=== PATIENT | male | born 1960 | race Caucasian/White ===

== ENCOUNTER 2018-08-04 08:44 | Observation (INO) | payer BC ==
[2018-08-04 09:49] LABS: Absolute Lymphocytes (CBC) 0.9 K/uL (0.7-4.9); Absolute Monocytes 0.4 K/uL (0.1-1.3); Absolute Neutrophil 7.8 K/uL (1.8-8.0); Basophils % 0.5 % (0-1.3); Eosinophils % 0.3 % (0-4.4); Hematocrit 48.1 % (39.6-49.0); Lymphocytes % 9.5 % (15.3-44.8); MPV 7.9 fL (7.6-11.3); Monocytes % 4.7 % (3.3-12.3); RBC Red Blood Cell Count 5.44 M/uL (4.33-5.43)
[2018-08-04 10:11] LABS: Protime INR 0.98
--- NOTE | 2018-08-04 10:25 | RAD REPORT ---
EXAM DESCRIPTION: CT - Head Brain Wo Cont - 08/04/2018 9:57 am CLINICAL HISTORY: DIZZINESS Fall, trauma, head injury COMPARISON: No comparisons TECHNIQUE: All CT scans are performed using dose optimization technique as appropriate and may inclu de automated exposure control or mA/KV adjustment according to patient size. FINDINGS: No intracranial hemorrhage, hydrocephalus or extra-axial fluid collection.No areas of brai n edema or evidence of midline shift. Evidence of corpus callosum dysgenesis. The paranasal sinuses and mastoids are clear. The calvarium is intact. IMPRESSION: No acute intracranial abnormality.
[2018-08-04 10:36] LABS: BUN Blood Urea Nitrogen 17 mg/dL (7-18); Bicarbonate 26 mmol/L (21-32); Folic Acid, (Folate) > 20.0 ng/mL (3.1-17.5); Glucose Level 157 mg/dL (74-106); Potassium 3.6 mmol/L (3.5-5.1); Sodium Level 142 mmol/L (136-145); Troponin (Emerg Dept Use Only) 0.03 ng/mL (0.0-0.045)
--- NOTE | 2018-08-04 11:04 | ER ---
Nurse's Notes [facility] Name: Ernesto Roche Age: 57 yrs Sex: Male : 1960 Arrival Date: 08/04/2018 Time: 08:45 Bed 14 [facility] MD: Favio Beaver T Diagnosis: Ataxia, unspecified;Multiple sclerosis Presentation: 08/04 08:54 Presenting complaint: Patient states: Went to bed at 2000 last night, woke up at 0330 ss this morning, fell out of bed because of feeling off balance. Denies pain. Transition of care: patient was not received from another setting of care. No acute neurological deficit is noted. Pre-hospital glucose is not applicable to this patient. Onset of symptoms is unknown. Risk Assessment: Do you want to hurt yourself or someone else? Patient reports no desire to harm self or others. Initial Sepsis Screen: Does the patient meet any 2 criteria? No. Patient's initial sepsis screen is negative. Does the patient have a suspected source of infection? No. Patient's initial sepsis screen is negative. Care prior to arrival: None. 08:54 Method Of Arrival: Wheelchair ss 08:54 Acuity: LEIGH ANN 3 ss Stroke Activation: Symptom onset > 6 hours Physician: Stroke Attending; Name: ; Notified At: ; Arrived At: Physician: Chief Stroke Resident; Name: ; Notified At: ; Arrived At: Physician: Stroke Resident; Name: ; Notified At: ; Arrived At: Physician: ED Attending; Name: ; Notified At: ; Arrived At: Physician: ED Resident; Name: ; Notified At: ; Arrived At: Historical: - Allergies: 08:57 No Known Allergies; ss - PMHx: 08:57 Multiple Sclerosis; Hypertension; ss - PSHx: 08:57 penile implant; ss - Immunization history:: Adult Immunizations up to date. - Social history:: Smoking status: Patient/guardian denies using tobacco. - Ebola Screening: : Patient denies exposure to infectious person Patient denies travel to an Ebola-affected area in the 21 days before illness onset. - Family history:: not pertinent. - Hospitalizations: : No recent hospitalization is reported. Screenin:30 Abuse screen: Denies threats or abuse. Denies injuries from another. Nutritional ph screening: No deficits noted. Tuberculosis screening: No symptoms or risk factors identified. Fall Risk Fall in past 12 months (25 points). Secondary diagnosis (15 points) MS. IV access (20 points). Ambulatory Aid- None/Bed Rest/Nurse Assist (0 pts). Gait- Impaired (20 pts.). Mental Status- Oriented to own ability (0 pts). Total Jaffe Fall Scale indicates High Risk Score (45 or more points). Fall prevention measures have been instituted. Side Rails Up X 2 Placed Close to Nursing Station Frequent Obs/Assessments Occuring Family Present and informed to notify staff if the need to leave the bedside As available patient and family educated on Fall Prevention Program and Strategies. Assessment: 09:15 VAN Scoring: Arm Drift: Patients demonstrates NO arm weakness. Patient is VAN Negative. ph 09:56 Reassessment: Patient appears in no apparent distress at this time. Patient is alert, ph oriented x 3, equal unlabored respirations, skin warm/dry/pink. Pt taken to CT via wheelcahir. 10:30 Patient has been NPO before screening. The patient is alert, and able to follow ph commands. The patient does not exhibit slurred or garbled speech. The patient is not exhibiting difficulty speaking. The patient does not exhibit difficulty understanding words. The patient is able to swallow own secretions with no drooling or need for suction. Patient tolerated one teaspoon of water. No drooling, immediate coughing, gurgling, or clearing of the throat was noted. The patient tolerated 90mL of water. No drooling, immediate coughing, gurgling, or clearing of the throat was noted. The patient passed the bedside swallow screening. Oral medications may be given as ordered. Contact Physician for further diet orders. Provider notified of bedside swallow screening results: Beck Santa MD. T-PA (Activase) Screening: Contraindications: Patient reports onset of signs and symptoms of stroke greater than 6 hours ago: Yes. General: Appears in no apparent distress. comfortable, well groomed, well nourished, Behavior is calm, cooperative, appropriate for age, Denies fever, chills. Pain: Denies pain. Neuro: Level of Consciousness is awake, alert, obeys commands, Oriented to person, place, time, situation, Pattern Duplicator are equal bilaterally Moves all extremities. Gait is ataxic, Speech is normal, Facial symmetry appears normal, Facial symmetry: tongue is midline, Pupils are PERRLA, Reports dizziness, trouble walking, "feels unsteady". Denies paresthesias numbness headache. Cardiovascular: Denies chest pain, lightheadedness, shortness of breath, Capillary refill < 3 seconds in bilateral fingers Patient's skin is warm and dry. Respiratory: Airway is patent Respiratory effort is even, unlabored, Respiratory pattern is regular, symmetrical. GI: No signs and/or symptoms were reported involving the gastrointestinal system. Derm: Skin is intact, is healthy with good turgor, Skin is pink, warm \\T\\ dry. Musculoskeletal: Circulation, motion, and sensation intact. Range of motion: intact in all extremities, Swelling absent. 10:50 Reassessment: Patient appears in no apparent distress at this time. Patient is alert, ph oriented x 3, equal unlabored respirations, skin warm/dry/pink. Dr Reis at bedside to speak w/ pt. 11:20 Reassessment: Patient appears in no apparent distress at this time. Patient and/or ph family updated on plan of care and expected duration. Pain level reassessed. Patient is alert, oriented x 3, equal unlabored respirations, skin warm/dry/pink. Pt taken to MRI via wheelchair Patient denies pain at this time. 13:30 Reassessment: Patient appears in no apparent distress at this time. Patient and/or ph family updated on plan of care and expected duration. Pain level reassessed. Patient is alert, oriented x 3, equal unlabored respirations, skin warm/dry/pink. Patient denies pain at this time. 14:10 Reassessment: Patient appears in no apparent distress at this time. Patient and/or ph family updated on plan of care and expected duration. Pain level reassessed. Patient is alert, oriented x 3, equal unlabored respirations, skin warm/dry/pink. Report called to SHIRIN Lopez, pt taken to second floor via wheelchair. Vital Signs: 08:57 BP 186 / 111; Pulse 79; Resp 19; Temp 97.4(TE); Pulse Ox 98% on R/A; Weight 90.72 kg; ss Height 6 ft. 1 in. (185.42 cm); Pain 0/10; 11:15 BP 182 / 110 Supine; Pulse 75; em1 11:15 BP 172 / 116 Sitting; Pulse 81; em1 11:17 BP 170 / 109 Standing; Pulse 81; em1 12:48 BP 172 / 98; Pulse 80; Resp 18; Temp 97.2; Pulse Ox 99% on R/A; ph 14:00 BP 176 / 101; Pulse 82; Resp 18; Temp 97.6; Pulse Ox 98% on R/A; ph 08:57 Body Mass Index 26.39 (90.72 kg, 185.42 cm) ss NIH Stroke Scale Scores: 09:15 NIHSS Score: 2 ph ED Course: 08:45 Patient arrived in ED. as 08:45 Favio Beaver MD is Private Physician. as 08:56 Triage completed. ss 08:57 Arm band placed on right wrist. ss 09:08 Monica Jimenez RN is Primary Nurse. ph 09:14 Beck Santa MD is Attending Physician. rn 09:30 Patient has correct armband on for positive identification. Placed in gown. Bed in low ph position. Call light in reach. Side rails up X2. manager basketball on. Pulse ox on. NIBP on. Warm blanket given. 09:36 EKG done, by radiologic technologist mammogram. reviewed by Beck Santa MD. dt2 09:40 Radiology exam delayed due to IV insertion attempt and/or patient not having sj appropriate IV at this time. 09:43 Initial lab(s) drawn, by la, sent to lab. Inserted saline lock: 20 gauge in right em1 forearm, using aseptic technique. Blood collected. 09:55 CT completed. Patient tolerated procedure well. Patient moved to CT via wheelchair. Patient moved back from CT. 09:57 CT Head Brain wo Cont In Process Unspecified. EDMS 11:03 Denys Reis DO is Hospitalizing Provider. rn 14:20 No provider procedures requiring assistance completed. Patient admitted, IV remains in ph place. Administered Medications: 11:20 Drug: SOLU-Medrol 125 mg Route: IVP; Site: right forearm; ph 12:00 Follow up: Response: No adverse reaction ph Outcome: 11:03 Decision to Hospitalize by Provider. rn 14:20 Admitted to Tele accompanied by tech, family with patient, via wheelchair, with chart, ph Report called to Jessica CARPIO 14:20 Condition: stable 14:20 Instructed on the need for admit. 14:21 Patient left the ED. ph NIH Stroke Scale - NIH Stroke Score Date: 08/04/2018 Time: 09:15 Total Score = 2 1a. Level of Consciousness (LOC) - 0(Alert) 1b. Level of Consciousness (LOC) (Year \\T\\ Age) - 0(Both) 1c. LOC Commands (Open \\T\\ Closes Eyes/[place] Inspector) - 0(Both) 2. Best Gaze (Lateral Gaze Paresis) - 0(Normal) 3. Visual Field Loss - 0(No visual loss) 4. Facial Palsy - 0(Normal) 5a. Left Arm: Motor (10-second hold) - 0(No drift) 5b. Right Arm: Motor (10-second hold) - 0(No drift) 6a. Left Leg: Motor (5-second hold - always test supine) - 0(No drift) 6b. Right Leg: Motor (5-second hold - always test supine) - 0(No drift) 7. Limb Ataxia (finger/nose \\T\\ heel/ohara - test with eyes open) - 2(Present in two limbs) 8. Sensory Loss (pinprick arms/legs/face) - 0(Normal) 9. Best Language: Aphasia (description/naming/reading) - 0(No aphasia) 10. Dysarthria (speech clarity - read or repeat words) - 0(Normal) 11. Extinction and Inattention (visual/tactile/auditory/spatial/personal) - 0(No abnormality) Initials: Signatures: Dispatcher [employer] Shae Carmona, Beck Newby MD MD rn Martinez, Eric em1 Sydney Reynolds RN RN Monica Jimenez RN RN Mikayla Vazquez dt2 Corrections: (The following items were deleted from the chart) 18:21 11:30 Reassessment: Patient appears in no apparent distress at this time. Patient and/or family updated on plan of care and expected duration. Pain level reassessed. Patient is alert, oriented x 3, equal unlabored respirations, skin warm/dry/pink. Patient denies pain at this time. ph
--- NOTE | 2018-08-04 11:04 | EDPHYS ---
Physician Documentation [facility] Name: Ernesto Roche Age: 57 yrs Sex: Male : 1960 Arrival Date: 08/04/2018 Time: 08:45 Bed 14 [facility] MD: Favio Beaver T ED Physician Beck Santa HPI: 08/04 10:56 This 57 yrs old Male presents to ER via Wheelchair with complaints of rn Dizziness, Trouble Walking. 10:56 The patient presents with feeling off balance. Onset: The symptoms/episode rn began/occurred this morning, at 03:30. Modifying factors: The symptoms are alleviated by nothing, the symptoms are aggravated by walking. Severity of symptoms: At their worst the symptoms were moderate in the emergency department the symptoms are unchanged. The patient has not experienced similar symptoms in the past. Reports woke up at 0330, tried to get out of bed and fell, has felt unsteady since then, no weakness or numbness, but cannot walk without assistance. Has MS, but last flare 20 years ago.. Historical: - Allergies: 08:57 No Known Allergies; ss - PMHx: 08:57 Multiple Sclerosis; Hypertension; ss - PSHx: 08:57 penile implant; ss - Immunization history:: Adult Immunizations up to date. - Social history:: Smoking status: Patient/guardian denies using tobacco. - Ebola Screening: : Patient denies exposure to infectious person Patient denies travel to an Ebola-affected area in the 21 days before illness onset. - Family history:: not pertinent. - Hospitalizations: : No recent hospitalization is reported. ROS: 10:56 Constitutional: Negative for fever, chills, and weight loss, Eyes: Negative for injury, rn pain, redness, and discharge, Neck: Negative for injury, pain, and swelling, Cardiovascular: Negative for chest pain, palpitations, and edema, Respiratory: Negative for shortness of breath, cough, wheezing, and pleuritic chest pain, Abdomen/GI: Negative for abdominal pain, nausea, vomiting, diarrhea, and constipation, MS/Extremity: Negative for injury and deformity, Skin: Negative for injury, rash, and discoloration, Neuro: Negative for headache, weakness, numbness, tingling, and seizure, + off balance and trouble walking Exam: 09:34 ECG was reviewed by the Attending Physician. rn 10:56 Constitutional: This is a well developed, well nourished patient who is awake, alert, rn and in no acute distress. Head/Face: Normocephalic, atraumatic. Eyes: Pupils equal round and reactive to light, extra-ocular motions intact. Lids and lashes normal. Conjunctiva and sclera are non-icteric and not injected. Cornea within normal limits. Periorbital areas with no swelling, redness, or edema. + right lateral gaze nystagmus. Cardiovascular: Regular rate and rhythm . No pulse deficits. Respiratory: Lungs have equal breath sounds bilaterally, clear to auscultation. No increased work of breathing, no retractions or nasal flaring. Abdomen/GI: soft, non-tender MS/ Extremity: Pulses equal, no cyanosis. Neurovascular intact. Full, normal range of motion. Equal circumference. Neuro: Awake and alert, GCS 15, oriented to person, place, time, and situation. Cranial nerves II-XII grossly intact. Motor strength 5/5 in all extremities. Sensory grossly intact. Normal Finger to nose, trouble with left heel to ohara, + ataxic gait and cannot walk without support, falls to either side. Vital Signs: 08:57 BP 186 / 111; Pulse 79; Resp 19; Temp 97.4(TE); Pulse Ox 98% on R/A; Weight 90.72 kg; ss Height 6 ft. 1 in. (185.42 cm); Pain 0/10; 11:15 BP 182 / 110 Supine; Pulse 75; em1 11:15 BP 172 / 116 Sitting; Pulse 81; em1 11:17 BP 170 / 109 Standing; Pulse 81; em1 12:48 BP 172 / 98; Pulse 80; Resp 18; Temp 97.2; Pulse Ox 99% on R/A; ph 14:00 BP 176 / 101; Pulse 82; Resp 18; Temp 97.6; Pulse Ox 98% on R/A; ph 08:57 Body Mass Index 26.39 (90.72 kg, 185.42 cm) NIH Stroke Scale Scores: 09:15 NIHSS Score: 2 ph MDM: 09:14 Patient medically screened. rn 10:56 Differential diagnosis: cardiac arrhythmia, generalized weakness, hypovolemia, rn idiopathic dizziness, TIA, vertigo, MS flare. Data reviewed: vital signs, nurses notes, lab test result(s), EKG, radiologic studies, CT scan, and as a result, I will admit patient. Counseling: I had a detailed discussion with the patient and/or guardian regarding: the historical points, exam findings, and any diagnostic results supporting the discharge/admit diagnosis, lab results, radiology results, the need for further work-up and treatment in the hospital. Admission orders: after a detailed discussion of the patient's condition and case, the admit orders are written by me. Special discussion:. ED course: Pt with normal ct head and labs, consulted with Dr. Delvalle, requests MRI brain with and without, and will consult, admitted to Dr. Reis who has evaluated patient in ER. . 08/04 09:30 Order name: Protime (+inr); Complete Time: 10:15 rn 08/04 09:30 Order name: Basic Metabolic Panel; Complete Time: 10:38 08/04 09:30 Order name: CBC with Diff; Complete Time: 10:15 08/04 09:30 Order name: Ptt, Activated; Complete Time: 10:15 08/04 09:30 Order name: Troponin (emerg Dept Use Only); Complete Time: 10:38 08/04 09:30 Order name: B12; Complete Time: 10:38 08/04 09:00 Order name: EKG; Complete Time: 09:00 08/04 09:30 Order name: CT Head Brain wo Cont; Complete Time: 10:38 rn 08/04 09:30 Order name: Folic Acid,Serum (folate); Complete Time: 10:38 08/04 10:43 Order name: Brain W/Wo Cont MRI rn 08/04 12:03 Order name: Urine Dipstick--Ancillary (enter results) 08/04 12:40 Order name: MRI EDIA 08/04 12:52 Order name: Urine Dipstick-Ancillary EDIA 08/04 09:00 Order name: EKG - Nurse/Tech; Complete Time: 10:29 08/04 09:30 Order name: Cardiac monitoring; Complete Time: 09:57 rn 08/04 09:30 Order name: IV Saline Lock; Complete Time: 09:44 08/04 09:30 Order name: Labs collected and sent; Complete Time: 09:44 rn 08/04 09:30 Order name: NPO; Complete Time: 09:57 rn 08/04 09:30 Order name: O2 Per Protocol; Complete Time: 09:57 rn 08/04 09:30 Order name: O2 Sat Monitoring; Complete Time: 09:57 rn 08/04 09:30 Order name: Urine Dipstick-Ancillary (obtain specimen); Complete Time: 12:02 rn 08/04 11:03 Order name: Orthostatics; Complete Time: 11:21 rn EC:34 Rate is 73 beats/min. Rhythm is regular. QRS interval is normal. QT interval is normal. rn No Q waves. T waves are Inverted in leads I, aVL, V4, V5, V6. Clinical impression: NSR w/ Non-specific ST/T Changes. Interpreted by me. Reviewed by me. Administered Medications: 11:20 Drug: SOLU-Medrol 125 mg Route: IVP; Site: right forearm; ph 12:00 Follow up: Response: No adverse reaction ph Disposition: 08/04/18 11:03 Hospitalization ordered by Denys Reis for Inpatient Admission. Preliminary diagnosis are Ataxia, unspecified, Multiple sclerosis. - Bed requested for Telemetry/MedSurg (Inpatient). - Status is Inpatient Admission. ph - Condition is Stable. - Problem is new. - Symptoms are unchanged. UTI on Admission? No NIH Stroke Scale - NIH Stroke Score Date: 08/04/2018 Time: 09:15 Total Score = 2 1a. Level of Consciousness (LOC) - 0(Alert) 1b. Level of Consciousness (LOC) (Year \T\ Age) - 0(Both) 1c. LOC Commands (Open \T\ Closes Eyes/Return To Service Inspector) - 0(Both) 2. Best Gaze (Lateral Gaze Paresis) - 0(Normal) 3. Visual Field Loss - 0(No visual loss) 4. Facial Palsy - 0(Normal) 5a. Left Arm: Motor (10-second hold) - 0(No drift) 5b. Right Arm: Motor (10-second hold) - 0(No drift) 6a. Left Leg: Motor (5-second hold - always test supine) - 0(No drift) 6b. Right Leg: Motor (5-second hold - always test supine) - 0(No drift) 7. Limb Ataxia (finger/nose \T\ heel/ohara - test with eyes open) - 2(Present in two limbs) 8. Sensory Loss (pinprick arms/legs/face) - 0(Normal) 9. Best Language: Aphasia (description/naming/reading) - 0(No aphasia) 10. Dysarthria (speech clarity - read or repeat words) - 0(Normal) 11. Extinction and Inattention (visual/tactile/auditory/spatial/personal) - 0(No abnormality) Initials: Signatures: Dispatcher [employer] Anna Jarrell RN RN dw Nieto, Roman, MD MD rn Smirch, Shelby, RN RN ss Hall, Patricia, RN RN ph Corrections: (The following items were deleted from the chart) 11:01 10:56 Constitutional: This is a well developed, well nourished patient who is rn awake, alert, and in no acute distress. Head/Face: Normocephalic, atraumatic. Eyes: Pupils equal round and reactive to light, extra-ocular motions intact. Lids and lashes normal. Conjunctiva and sclera are non-icteric and not injected. Cornea within normal limits. Periorbital areas with no swelling, redness, or edema. Cardiovascular: Regular rate and rhythm . No pulse deficits. Respiratory: Lungs have equal breath sounds bilaterally, clear to auscultation. No increased work of breathing, no retractions or nasal flaring. Abdomen/GI: soft, non-tender MS/ Extremity: Pulses equal, no cyanosis. Neurovascular intact. Full, normal range of motion. Equal circumference. Neuro: Awake and alert, GCS 15, oriented to person, place, time, and situation. Cranial nerves II-XII grossly intact. Motor strength 5/5 in all extremities. Sensory grossly intact. Normal Finger to nose, trouble with left heel to ohara, + ataxic gait and cannot walk without support, falls to either side. bertha 12:09 11:03 Hospitalization Ordered by Denys Reis DO for Inpatient Admission. gregg Preliminary diagnosis is Ataxia, unspecified; Multiple sclerosis. Bed requested for Telemetry/MedSurg (Inpatient). Status is Inpatient Admission. Condition is Stable. Problem is new. Symptoms are unchanged. UTI on Admission? No. rn 14:21 12:09 08/04/2018 11:03 Hospitalization Ordered by Denys Reis DO for ph Inpatient Admission. Preliminary diagnosis is Ataxia, unspecified; Multiple sclerosis. Bed requested for Telemetry/MedSurg (Inpatient). Status is Inpatient Admission. Condition is Stable. Problem is new. Symptoms are unchanged. UTI on Admission? No. dw
[2018-08-04] MEDS ORDERED: METHYLPREDNISOLONE 125 MG INJ ONE (11:37)
--- NOTE | 2018-08-04 11:54 | EKG ---
Test Date: 2018-08-04 Test Time: 09:31:35 Gamemaster: CELESTINE MEASUREMENT RESULTS: Intervals: Rate: 73 [place]: 178 QRSD: 90 QT: 398 QTc: 438 Clements: P: 56 KY: 178 QRS: 31 T: 170 INTERPRETIVE STATEMENTS: Normal sinus rhythm Marked ST abnormality, possible inferior subendocardial injury Abnormal ECG No previous ECG available for comparison Electronically Signed On 08-04-18 11:53:25 CDT by Jimi White
--- NOTE | 2018-08-04 12:39 | RAD REPORT ---
EXAM DESCRIPTION: MRI - Brain W/Wo Cont - 08/04/2018 12:24 pm CLINICAL HISTORY: Ataxia, remote history of MS, fall with head injury COMPARISON: CT head same date TECHNIQUE: Sagittal and axial T1-weighted images were obtained. Axial PD/heavily T2-weighted and T2- FLAIR images were obtained along with axial DWI/ADC mapping sequences. Coronal heavily T2 weighted s equence obtained. Axial and coronal post-contrast T1-weighted images were also obtained. A 20 ml Mul tihance contrast following utilized. FINDINGS: No intracranial hemorrhage, mass or acute infarction. There is no edema or shift of midli ne structures. Patient has congenital absence of the corpus callosum. Atria and occipital horns of th e lateral ventricles are prominent. This is a common configuration with the corpus callosum finding. Fourth ventricle is normal. Volume loss changes are present. Extensive cerebral white matter signal a bnormalities are present periventricular in location. A few of the white matter signal abnormalities have an orientation perpendicular to the lateral ventricles. This is a finding that can be associated with MS. The white matter signal abnormality is not specific for MS. no cerebellum or brainstem sign al abnormalities. No thalamus or basal ganglia signal abnormalities. Goldstein-matter/white matter junctio n is preserved. Signal voids are seen as a normal finding in the major intracranial vessels. No globe or orbital content abnormality. No sella or supra sella mass. No tonsillar ectopia. Post-contrast images show normal enhancement. No dural thickening. Mastoid air cells and paranasal sinuses are clear. IMPRESSION: No acute infarction. No hemorrhage, mass or other acute intracranial finding. Extensive periventricular white matter signal abnormality. White matter pattern is not specific for m ultiple sclerosis but can still represent MS signal abnormality. No enhancing focus to indicate active demyelinization. Patient has developmental absence of the corpus callosum. Atria and occipital horns of the lateral ve ntricles are enlarged which can be seen with is underlying developmental abnormality. Obstructive hyd rocephalus is not suspected.
[2018-08-04 12:51] LABS: Urine Blood NEGATIVE (NEG); Urine Glucose NEGATIVE (NEG); Urine Protein 1+ (NEG); Urine Specific Gravity 1.015 (1.005-1.030); Urine pH 7.5 (5.0-7.0)
[2018-08-04 14:13] VITALS: BMI 26.4
[2018-08-04] MEDS ORDERED: HYDRALAZINE HCL 20 MG/ML VIAL IV PRN (14:14)
[2018-08-04] MEDS ORDERED: ACETAMINOPHEN 500 MG TAB PO PRN (14:14)
[2018-08-04] MEDS ORDERED: ONDANSETRON 4 MG/2 ML VIAL IV PRN (14:14)
--- NOTE | 2018-08-04 14:57 | P.HP ---
Certification for Inpatient Patient admitted to: Observation With expected LOS: <2 Midnights Patient will require the following post-hospital care: None Practitioner: I am a practitioner with admitting privileges, knowledge of patient current condition, hospital course, and medical plan of care. Services: Services provided to patient in accordance with Admission requirements found in Title 42 Section 412.3 of the Code of Federal Regulations Patient History Date of Service: 08/04/18 Primary Care Provider: Dr. Beaver; Neurology-Dr. Delvalle Reason for admission: Ataxia History of Present Illness: 57-year-old male presented to the emergency room with ataxia. Patient with history of multiple sclerosis. Patient reported that he woke up this morning with ataxia. He was going up to the bathroom when he fell down. He was having difficulty with ambulation. He denied any chest pain, shortness of breath, syncope, presyncope, or fever. He denies any other major medical issues. Patient reports history of multiple sclerosis. His last flare up was multiple years ago. Patient is seen by neurology in the area. Patient evaluate the emergency room. Blood pressures were elevated. White count 9.1, hemoglobin 15.9. Sodium 142, potassium 3.6. BUN of 12, creatinine 1.1 with a GFR 63. Glucose 157. Troponin unremarkable. CT scan shows no acute changes. Patient was admitted for further evaluation. When I saw the patient in ER, he appeared comfortable. Patient had ataxia upon ER evaluation. Allergies No Known Allergies Allergy (Unverified 08/04/18 14:13) Home medications list reviewed: Yes Home Medications: Amantadine [Symmetrel] 100 mg PO DAILY 08/04/18 Bupropion *Xl* [Wellbutrin XL] 300 mg PO DAILY 08/04/18 Glatiramer Acetate [Glatopa] 20 mg SQ DAILY 08/04/18 Tamsulosin [Flomax] 0.4 mg PO DAILY 08/04/18 - Past Medical/Surgical History Has patient received pneumonia vaccine in the past: No Diabetic: No -: Multiple sclerosis -: Depression with anxiety -: Penile implant Psychosocial/ Personal History: Patient lives by himself. He has no children. 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 He has never been . - Family History Family History: Reviewed- Non-Contributory - Social History Smoking Status: Never smoker Alcohol use: No CD- Drugs: No Caffeine use: No Place of Residence: Home Review of Systems General: As per HPI Eyes: Unremarkable ENT: Unremarkable Respiratory: Unremarkable Cardiovascular: Unremarkable Gastrointestinal: Unremarkable Genitourinary: Unremarkable Musculoskeletal: Unremarkable Integumentary: Unremarkable Neurological: As per HPI Lymphatics: Unremarkable Physical Examination - Vital Signs Temperature: 97.2 F Blood Pressure: 172/98 Pulse: 80 Respirations: 18 - Physical Exam General: Alert, In no apparent distress, Oriented x3, Cooperative HEENT: Atraumatic, Normocephalic, PERRLA, Mucous membr. moist/pink, Other ( Lateral nystagmus) Neck: Supple, No Thyromegaly Respiratory: Clear to auscultation bilaterally, Normal air movement Cardiovascular: Normal pulses, Regular rate/rhythm Gastrointestinal: Normal bowel sounds, Soft and benign, Non-distended, No tenderness, No masses, No rebound, No guarding Musculoskeletal: No erythema, No tenderness, No warmth Integumentary: No tenderness/swelling, No erythema, No warmth, No cyanosis Neurological: Normal speech, Normal strength at 5/5 x4 extr, Normal tone, Normal affect - Studies Laboratory Data (last 24 hrs) 08/04/18 09:40: WBC 9.1, Hgb 15.9, Hct 48.1, Plt Count 217 08/04/18 09:40: Sodium 142, Potassium 3.6, BUN 17, Creatinine 1.18, Glucose 157 H 08/04/18 09:40: PT 11.6, INR 0.98, APTT 31.3 Assessment and Plan - Plan Impression: Ataxia with history of multiple sclerosis Hypertension, uncontrolled Plan: Ataxia with history of multiple sclerosis: Patient will be admitted for further evaluation. MRI shows no acute infarct. Extensive periventricular white matter signal abnormality noted. No enhancing focus to indicate active demyelination. Patient has developmental absence of corpus callosum. Will consult neurology to further evaluate. Will start steroid medication as this may be an exacerbation of an mass. Patient with elevated blood pressure. Patient not previously treated. Will start medication. Will monitor notice appropriately. Will have physical therapy and occupational therapy evaluate. Patient unsteady to be discharged at this time. Will reassess. Await further recommendations from neurology. Will provide DVT prophylaxis-Lovenox. Hypertension, uncontrolled: Will start lisinopril. Will check orthostatics and monitor closely. Will adjust medication. Will continue to reassess. Discharge Plan: Home Plan to discharge in: 24 Hours - Advance Directives Does patient have a Living Will: Yes Does patient have a Durable POA for Healthcare: Yes - Code Status/Comfort Care Code Status Assessed: Yes (Patient full code.) Time Spent Managing Pts Care (In Minutes): 55
[2018-08-04] MEDS: ENOXAPARIN 40 MG/0.4 ML SQ SCH (14:58)
[2018-08-04 15:22] LABS: CKMB Creatine Kinase MB 3.6 ng/mL (0.3-3.6); Creatine Phosphokinase 387 U/L (39-308); Thyroid Stimulating Hormone 0.708 uIU/mL (0.360-3.740); Troponin I < 0.02 ng/mL (0.0-0.045)
[2018-08-04 16:42] LABS: Urine Appearance CLOUDY; Urine Bilirubin NEGATIVE (NEG); Urine Blood NEGATIVE (NEG); Urine Color YELLOW; Urine Glucose 1+ (NEG); Urine Protein TRACE (NEG); Urine Urobilinogen 0.2 mg/dL (0.2-1.0); Urine pH 7.5 (5.0-7.0)
[2018-08-04 16:44] LABS: Urine Microscopic Reflex ORDER UMIC
[2018-08-04 16:52] LABS: Urine Amorphous Sediment 3+ /HPF (NONE SEEN); Urine Bacteria NONE SEEN /HPF (NONE SEEN); Urine Culture Reflex Order NOT NEEDED; Urine RBC <5 /HPF (NONE SEEN)
[2018-08-04] MEDS ORDERED: LISINOPRIL 10 MG TAB PO ONE (16:54)
[2018-08-04] MEDS: METOPROLOL TAR 50 MG TAB PO SCH (18:49)
--- NOTE | 2018-08-04 19:32 | RAD REPORT ---
EXAM DESCRIPTION: - CP - 08/04/2018 7:24 pm CLINICAL HISTORY: Ataxia, possible CVA COMPARISON: None. TECHNIQUE: Real-time sonographic evaluation of both carotid systems was performed. Goldstein scale and Do ppler interrogation were performed with waveform tracing bilaterally. FINDINGS: Normal high resistance waveforms are noted in both external carotid arteries. The common c arotid arteries and internal carotid arteries show normal low resistance waveforms. No significant plaque formation is seen. Mild plaquing changes are present and left carotid bulb with out visual evidence for luminal narrowing. Peak systolic and end diastolic velocity values and the IC A/CCA ratios are in the non-hemodynamically significant range. Antegrade flow seen in both vertebral arteries. Velocity values and ratios were recorded and are retained in the patient's imaging records. IMPRESSION: No significant atherosclerotic changes noted. No evidence of a hemodynamically significant stenosis.
[2018-08-04] MEDS ORDERED: LISINOPRIL 20 MG TAB PO SCH (21:00)
[2018-08-04] MEDS ORDERED: LISINOPRIL 10 MG TAB PO SCH (21:00)
[2018-08-04] MEDS ORDERED: predniSONE 20 MG TAB PO SCH (21:00)
[2018-08-04 22:39] LABS: CKMB Creatine Kinase MB 3.5 ng/mL (0.3-3.6); Troponin I 0.02 ng/mL (0.0-0.045)
[2018-08-05] MEDS ORDERED: MELATONIN 3 MG TABLET PO ONE (00:20)
[2018-08-05 05:51] LABS: Absolute Lymphocytes (CBC) 2.2 K/uL (0.7-4.9); Absolute Monocytes 0.9 K/uL (0.1-1.3); Absolute Neutrophil 11.4 K/uL (1.8-8.0); Basophils % 0.2 % (0-1.3); Eosinophils % 0.3 % (0-4.4); Hematocrit 45.6 % (39.6-49.0); Lymphocytes % 15.3 % (15.3-44.8); MPV 8.1 fL (7.6-11.3); Monocytes % 6.1 % (3.3-12.3); RBC Red Blood Cell Count 5.16 M/uL (4.33-5.43)
[2018-08-05 06:11] LABS: Magnesium 2.7 mg/dL (1.8-2.4); Potassium 3.9 mmol/L (3.5-5.1)
[2018-08-05] MEDS ORDERED: NA CHLORIDE 0.9% 250 ML IV ONE (08:12)
[2018-08-05] MEDS: METOPROLOL TAR 50 MG TAB PO SCH (08:49)
[2018-08-05] MEDS: ENOXAPARIN 40 MG/0.4 ML SQ SCH (08:49)
[2018-08-05] MEDS: THIAMINE HCL 100 MG TABLET PO SCH (08:49)
[2018-08-05] MEDS: BUPROPION HCL XL 150 MG TAB PO SCH (08:49)
[2018-08-05] MEDS: FOLIC ACID 1 MG TABLET PO SCH (08:50)
[2018-08-05] MEDS: TAMSULOSIN 0.4 MG SR CAP PO SCH (08:50)
[2018-08-05] MEDS: GLATIRAMER ACETATE 20 MG SQ SCH (08:51)
[2018-08-05] MEDS: AMANTADINE 100 MG CAP PO SCH (08:51)
--- NOTE | 2018-08-05 11:28 | P.PN ---
Subjective Date of Service: 08/05/18 Primary Care Provider: Dr. Beaver; Neurology-Dr. Delvalle Chief Complaint: Ataxia Subjective: Other (Patient still with ataxia. No headaches, dizziness. Blood pressure better controlled.) Physical Examination - Vital Signs Temperature: 97 F Blood Pressure: 109/72 Pulse: 59 Respirations: 18 Pulse Ox (%): 96 - Physical Exam General: Alert, In no apparent distress, Oriented x3, Cooperative HEENT: Atraumatic Neck: Supple Respiratory: Clear to auscultation bilaterally, Normal air movement Cardiovascular: Normal pulses, Regular rate/rhythm Gastrointestinal: Normal bowel sounds, Soft and benign, Non-distended, No tenderness, No masses, No rebound, No guarding Musculoskeletal: No erythema, No tenderness, No warmth Neurological: Other (Ataxia noted by physical therapy.) - Studies Medications List Reviewed: Yes Assessment & Plan Discharge Plan: Other (Inpatient rehab) Plan to discharge in: 24 Hours Physician Review Additional Text: Impression: Ataxia with history of multiple sclerosis Hypertension, uncontrolled Acute renal insufficiency likely related to medication Hyperlipidemia Agenesis of corpus callusum Plan: Ataxia with history of multiple sclerosis with noted agenesis of corpus callosum MRI of reviewed with Neurology. MRI showed no acute infarct. Extensive periventricular white matter signal abnormality noted. No enhancing focus to indicate active demyelination. Patient has developmental absence of corpus callosum. Patient work with physical therapy today. Patient still with ataxia. Physical therapy recommends inpatient rehab. Patient is agreeable to this, will consult inpatient rehab. Await acceptance. Hypertension, uncontrolled: DC lisinopril. Will decrease Metoprolol. Will continue to monitor closely. Will check orthostatics. Acute renal insufficiency likely from medication: Will discontinue lisinopril. Will provide IV fluids. Recheck and monitor lab closely. Time Spent Managing Pts Care (In Minutes): 55
[2018-08-05] MEDS: NA CHLORIDE 0.9% 1,000 ML IV SCH (12:53)
[2018-08-05] MEDS ORDERED: ATORVASTATIN 40 MG TAB PO SCH (21:00)
[2018-08-05] MEDS: METOPROLOL TAR 25 MG TAB PO SCH (22:11)
--- NOTE | 2018-08-06 02:41 | CON ---
Reason For Consultation: Consultation called because of ataxia and falling. History Of Present Illness: Mr. Roche is a 57-year-old patient, whom I have seen in clinic for the last 6 years and who was diagnosed with multiple sclerosis over a decade ago. He has relapsing remit ting multiple sclerosis and recent brain MRIs indicate significant white matter lesions, but he had n o recent active plaque. The patient reportedly woke up yesterday morning and was very unsteady, unab le to ambulate and fell. He did not have any shortness of breath, chest pain, or seizure-like activi ty. He denies any focal weakness or numbness in the face, the arm, the leg or any focal pain. At [facility], he did receive a head CT scan, brain MRI. 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 The study did not show hy drocephalus. His workup also included a carotid artery ultrasound study, which showed no significant plaque or hemodynamically significant stenosis. Blood work showed initially a white blood cell coun t of 9.1 yesterday and today it did show an elevation of 14.7 with neutrophils of 78.1, hemoglobin an d hematocrit were unremarkable. Chemistries did show some dehydration with creatinine elevated to 1. 59. His magnesium level was elevated at 2.7 and cholesterol elevated at 307, LDL elevated to 221, HD L low at 38. Serum folate was slightly elevated. Urinalysis did show 3+ amorphous sediment, 1+ keto felipe, 1+ glucose. Note that the blood glucose was elevated to 157. He did receive hydration and he i s being ambulated with physical therapy. Past Medical History: As indicated in addition of depression, anxiety, and he does have erectile dys function. Past Surgical History: He has a penile implant. The patient lives alone. 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 He is unmarried. Family History: Noncontributory. Medications: At home, amantadine 100 mg daily, Wellbutrin 300 mg daily, Glatopa 20 mg subcutaneously daily, and Flomax 0.4 mg daily. Family History: Noncontributory. Allergies: NO KNOWN DRUG ALLERGIES. Social History: No alcohol, tobacco, or IV drug use. Review of Systems: He denies any recent fevers or chills, nausea, or vomiting. He does admit to diffuse weakness, diffi culty with his balance, coordination, and gait, and difficulty maintaining bladder control, and he we ars adult diapers. Physical Examination: Vital Signs: Blood pressure 122/75. Initially when he was in the emergency room, he did have elevat ed blood pressures to 186/111. He was off his antihypertensive medications. Otherwise, pulse 76, re spiratory rate 16, temperature 97.2, oxygen saturation 99%. General: Mr. Roche is resting comfortably in bed, has IV for fluid. He is in no acute distress. HEENT: He is normocephalic, atraumatic. Sclerae anicteric. Oropharynx is moist and pink. Neck: Supple. Chest: Clear. Heart: Regular. Extremities: No edema or cyanosis. Neurologic: Alert and oriented to situation, place, and person. Cranial nerve examination showed no obvious deficits on II through XII. Motor examination is diffuse incoordination with good strength in upper and lower extremities at least 4+ proximally and distally. Coordination shows ataxia and dy smetria in the lower and upper extremities. Reflexes are hyperreflexic in the upper and lower extrem ities. Gait, he is to ambulate with a walker with moderate assistance due to tendency to fall and lo ss of balance. Assessment: Mr. Roche is a 57-year-old patient with an advanced relapsing remitting multiple sclero sis. He has no active plaque as seen by a brain MRI with contrast showing no enhancement of any of t he lesions present. He has however progressive disease, which is likely a contributing factor to his gait ataxia. He does have dehydration, which is also a likely contributing factor. He did show a s light elevation in his white blood cell count and an infection such as pneumonia should be ruled out. Plan: 1.The patient may continue with his Glatopa as scheduled. 2.Chest x-ray to rule out pneumonia. Urine did look negative and if need be if fever is seen, maybe a lumbar puncture and blood cultures may be required. However, that is not indicated currently. 3.He may be evaluated for transfer to the inpatient rehabilitation unit to begin aggressive physical therapy for his ability to improve his balance, coordination, gait, and decrease risk of falling. 4.His blood pressure is managed by Dr. Reis. Currently in the normotensive range. 5.The patient will be followed once he is transferred to the inpatient rehabilitation unit on the [facility] floor. ADONIS Voice ID: [id number] Report ID: [id number]
[2018-08-06 06:22] LABS: Magnesium 2.4 mg/dL (1.8-2.4); Potassium 3.7 mmol/L (3.5-5.1)
--- NOTE | 2018-08-06 08:13 | ECHO ---
HEIGHT: 6 ft 1 in WEIGHT: 200 lb 0 oz DATE OF STUDY: 08/05/[address]: Denys Reis DO 2-DIMENSIONAL: YES M.MODE: YES DOPPLER: YES COLOR FLOW: YES TDS: NO PORTABLE: NO DEFINITY: NO BUBBLE STUDY: NO DIAGNOSIS: ATAXIA, HISTORY OF HYPERTENSION AND MS CARDIAC HISTORY: CATHERIZATION: NO SURGERY: NO PROSTHETIC VALVE: NO PACEMAKER: NO MEASUREMENTS (cm) DIASTOLIC (NORMALS) SYSTOLIC (NORMALS) IVSd 1.0 (0.6-1.2) LA Diam 3.6 (1.9-4.0) LVEF 61% LVIDd 4.4 (3.5-5.7) LVIDs 3.0 (2.0-3.5) %FS 32% LVPWd 1.0 (0.6-1.2) Ao Diam 2.9 (2.0-3.7) 2 DIMENSIONAL ASSESSMENT: RIGHT ATRIUM: NORMAL LEFT ATRIUM: NORMAL RIGHT VENTRICLE: NORMAL LEFT VENTRICLE: NORMAL TRICUSPID VALVE: NORMAL MITRAL VALVE: NORMAL PULMONIC VALVE: NORMAL AORTIC VALVE: NORMAL PERICARDIAL EFFUSION: NONE AORTIC ROOT: NORMAL LEFT VENTRICULAR WALL MOTION: NORMAL DOPPLER/COLOR FLOW: TRACE AORTIC REGURGITATION. COMMENTS: TRACE AORTIC REGURGITATION. NORMAL LEFT VENTRICULAR SIZE AND FUNCTION. NO WALL MOTION ABNORMALITY. TECHNOLOGIST: Britney THEODORE
[2018-08-06] MEDS: THIAMINE HCL 100 MG TABLET PO SCH (08:34)
[2018-08-06] MEDS: TAMSULOSIN 0.4 MG SR CAP PO SCH (08:34)
[2018-08-06] MEDS: BUPROPION HCL XL 150 MG TAB PO SCH (08:34)
[2018-08-06] MEDS: NA CHLORIDE 0.9% 1,000 ML IV SCH (08:34)
[2018-08-06] MEDS: METOPROLOL TAR 25 MG TAB PO SCH (08:35)
[2018-08-06] MEDS: AMANTADINE 100 MG CAP PO SCH (08:38)
[2018-08-06] MEDS: FOLIC ACID 1 MG TABLET PO SCH (08:38)
[2018-08-06] MEDS: ENOXAPARIN 40 MG/0.4 ML SQ SCH (08:39)
[2018-08-06] MEDS: GLATIRAMER ACETATE 20 MG SQ SCH (08:39)
--- NOTE | 2018-08-06 08:57 | RAD REPORT ---
EXAM DESCRIPTION: - Abdomen Pelvis Scan US - 08/06/2018 8:23 am US - Abdomen Pelvis Scan US - 08/06/2018 8:23 am CLINICAL HISTORY: Hypertension, renal insufficiency COMPARISON: None. TECHNIQUE: Sonographic evaluation of the kidneys was performed with measurements obtained and gross anatomic assessment performed. Doppler evaluation of the renal arteries, interlobar arteries and aort a performed. Waveforms and velocities were recorded. The renal artery ratios in resistive index terence ues were calculated. FINDINGS: Right kidney 11.2 x 5.1 x 6.0 cm. Left kidney is 10.8 x 6.8 x 7.3 cm. Cortical thickness a nd echogenicity are normal. A few punctate hyperechoic foci air seen in the parenchyma not regarded a s significant. Right renal artery resistive index values range from 0.67-0.70 in value. Left resistive index values range from 0.54-0.70 in value. Renal artery ratios are 0.7 on the right and 0.7 on the left. Arcuate artery resistive index values are 0.61 on the right and 0.59 on the left. No suspicious waveform mariella renan or velocity pattern. Urinary bladder shows no wall thickening or mass. No intraluminal filling defect. IMPRESSION: No renal artery stenosis findings. Renal artery ratios are normal range. No hydronephrosis, mass or other suspicious renal parenchymal process. No focal bladder abnormality.
[2018-08-06] MEDS ORDERED: POTASSIUM 25 MEQ EFFERV TAB PO ONE (09:00)
--- NOTE | 2018-08-06 11:17 | P.DS ---
Admission Date: 08/04/18 Discharge Date: 08/06/18 Primary Care Provider: Dr. Beaver; Neurology-Dr. Delvalle Disposition: TRANSFER TO INPATIENT REHAB Discharge Condition: GOOD Reason for Admission: Ataxia Consultations: Neurology-Dr. Delvalle Procedures: MRI Brain: FINDINGS: No intracranial hemorrhage, mass or acute infarction. There is no edema or shift of midline structures. Patient has congenital absence of the corpus callosum. Atria and occipital horns of the lateral ventricles are prominent. This is a common configuration with the corpus callosum finding. Fourth ventricle is normal. Volume loss changes are present. Extensive cerebral white matter signal abnormalities are present periventricular in location. A few of the white matter signal abnormalities have an orientation perpendicular to the lateral ventricles. This is a finding that can be associated with MS. The white matter signal abnormality is not specific for MS. no cerebellum or brainstem signal abnormalities. No thalamus or basal ganglia signal abnormalities. Goldstein-matter/white matter junction is preserved. Signal voids are seen as a normal finding in the major intracranial vessels. No globe or orbital content abnormality. No sella or supra sella mass. No tonsillar ectopia. Post-contrast images show normal enhancement. No dural thickening. Mastoid air cells and paranasal sinuses are clear. IMPRESSION: No acute infarction. No hemorrhage, mass or other acute intracranial finding. Extensive periventricular white matter signal abnormality. White matter pattern is not specific for multiple sclerosis but can still represent MS signal abnormality. No enhancing focus to indicate active demyelinization. Patient has developmental absence of the corpus callosum. Atria and occipital horns of the lateral ventricles are enlarged which can be seen with is underlying developmental abnormality. Obstructive hydrocephalus is not suspected. Carotid doppler: COMPARISON: None. TECHNIQUE: Real-time sonographic evaluation of both carotid systems was performed. Goldstein scale and Doppler interrogation were performed with waveform tracing bilaterally. FINDINGS: Normal high resistance waveforms are noted in both external carotid arteries. The common carotid arteries and internal carotid arteries show normal low resistance waveforms. No significant plaque formation is seen. Mild plaquing changes are present and left carotid bulb without visual evidence for luminal narrowing. Peak systolic and end diastolic velocity values and the ICA/CCA ratios are in the non- hemodynamically significant range. Antegrade flow seen in both vertebral arteries. Velocity values and ratios were recorded and are retained in the patient's imaging records. IMPRESSION: No significant atherosclerotic changes noted. No evidence of a hemodynamically significant stenosis. ECHO: EF 61% LEFT VENTRICULAR WALL MOTION: NORMAL DOPPLER/COLOR FLOW: TRACE AORTIC REGURGITATION. COMMENTS: TRACE AORTIC REGURGITATION. NORMAL LEFT VENTRICULAR SIZE AND FUNCTION. NO WALL MOTION ABNORMALITY. Renal US: FINDINGS: Right kidney 11.2 x 5.1 x 6.0 cm. Left kidney is 10.8 x 6.8 x 7.3 cm. Cortical thickness and echogenicity are normal. A few punctate hyperechoic foci air seen in the parenchyma not regarded as significant. Right renal artery resistive index values range from 0.67-0.70 in value. Left resistive index values range from 0.54-0.70 in value. Renal artery ratios are 0.7 on the right and 0.7 on the left. Arcuate artery resistive index values are 0.61 on the right and 0.59 on the left. No suspicious waveform pattern or velocity pattern. Urinary bladder shows no wall thickening or mass. No intraluminal filling defect. IMPRESSION: No renal artery stenosis findings. Renal artery ratios are normal range. No hydronephrosis, mass or other suspicious renal parenchymal process. No focal bladder abnormality. 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 Patient with history of multiple sclerosis. Patient reported that he woke up this morning with ataxia. He was going up to the bathroom when he fell down. He was having difficulty with ambulation. He denied any chest pain, shortness of breath, syncope, presyncope, or fever. He denies any other major medical issues. Patient reports history of multiple sclerosis. His last flare up was multiple years ago. Patient is seen by neurology in the area. Patient evaluate the emergency room. Blood pressures were elevated. White count 9.1, hemoglobin 15.9. Sodium 142, potassium 3.6. BUN of 12, creatinine 1.1 with a GFR 63. Glucose 157. Troponin unremarkable. CT scan shows no acute changes. Patient was admitted for further evaluation. Hospital Course: Patient presented with ataxia. Patient with history of multiple sclerosis. Patient was admitted for further evaluation. MRI showed no acute infarct. Extensive periventricular white matter signal abnormality noted. No enhancing focus to indicate active demyelination. Patient also found to have developmental absence of corpus callosum. During his stay patient was evaluated by physical therapy and neurology. Patient appears to have advanced relapsing remitting multiple sclerosis. Patient was not safe to discharge home. Recommendation was for inpatient rehabilitation. Patient accepted. At discharge his ataxia has improved with therapy. Patient will be transferred to inpatient rehab to continue his care. At discharge patient will continue with his current medications of amantadine 100 mg daily and Glatopa 20 mg subcu daily for his multiple sclerosis. Further adjustment to his medication can be done by neurology in inpatient rehab. Patient also found to have hypertension. This was uncontrolled upon admission. Patient was started on medication-lisinopril. This was discontinued due to renal insufficiency. This was transitioned to metoprolol. Blood pressure improved with medication. At discharge will continue with metoprolol 25 mg 1 pill twice daily. Recommend to maintain blood pressures less 150/80. Further adjustment can be done by his PCP. Renal ultrasound shows no renal artery stenosis. Patient with hyperlipidemia. LDL to elevated. Due to his hypertension and risk factors for CVA, recommendation is to continue with Lipitor 40 mg daily. Patient with depression with anxiety. Patient will continue with Wellbutrin XL 300 mg daily. Patient with BPH. Patient continue with Flomax 0.4 mg daily. Vital Signs/Physical Exam: Temp Pulse Resp BP Pulse Ox 97.7 F 66 16 155/87 H 96 08/06/18 07:30 08/06/18 08:35 08/06/18 07:30 08/06/18 08:35 08/06/18 07:30 General: Alert, In no apparent distress, Oriented x3, Cooperative HEENT: Atraumatic Neck: Supple Respiratory: Clear to auscultation bilaterally, Normal air movement Cardiovascular: Normal pulses, Regular rate/rhythm Gastrointestinal: Normal bowel sounds, Soft and benign, Non-distended, No tenderness, No masses, No rebound, No guarding Musculoskeletal: No erythema, No tenderness, No warmth Integumentary: No tenderness/swelling, No erythema, No warmth, No cyanosis Neurological: Normal speech, Normal strength at 5/5 x4 extr, Normal tone, Normal affect, Other (Ataxia improved) Laboratory Data at Discharge: WBC 14.7 K/uL (4.3-10.9) H D 08/05/18 05:32 Hgb 15.3 g/dL (13.6-17.9) 08/05/18 05:32 Hct 45.6 % (39.6-49.0) 08/05/18 05:32 Plt Count 258 K/uL (152-406) 08/05/18 05:32 PT 11.6 SECONDS (9.5-12.5) 08/04/18 09:40 INR 0.98 08/04/18 09:40 APTT 31.3 SECONDS (24.3-36.9) 08/04/18 09:40 Sodium 145 mmol/L (136-145) 08/06/18 05:27 Potassium 3.7 mmol/L (3.5-5.1) 08/06/18 05:27 BUN 29 mg/dL (7-18) H 08/06/18 05:27 Creatinine 1.14 mg/dL (0.55-1.3) 08/06/18 05:27 Glucose 102 mg/dL (74-106) 08/06/18 05:27 Magnesium 2.4 mg/dL (1.8-2.4) 08/06/18 05:27 Troponin I 0.02 ng/mL (0.0-0.045) 08/04/18 22:08 Triglycerides 241 mg/dL (<150) H 08/05/18 05:32 Cholesterol 307 mg/dL (<200) H 08/05/18 05:32 HDL Cholesterol 38 mg/dL (40-60) L 08/05/18 05:32 Cholesterol/HDL Ratio 8.08 08/05/18 05:32 Home Medications: Amantadine [Symmetrel*] 100 mg PO DAILY 08/04/18 Bupropion *Xl* [Wellbutrin XL*] 300 mg PO DAILY 08/04/18 Glatiramer Acetate [Glatopa] 20 mg SQ DAILY 08/04/18 Tamsulosin [Flomax*] 0.4 mg PO DAILY 08/04/18 Aspirin [Aspirin EC 81 MG] 81 mg PO DAILY #90 tablet. 08/06/18 Atorvastatin Calcium [Lipitor] 40 mg PO BEDTIME #30 tab 08/06/18 Folic Acid 1 mg PO DAILY #90 tablet 08/06/18 Metoprolol Tartrate [Lopressor*] 25 mg PO BID #60 tab 08/06/18 New Medications: Aspirin [Aspirin EC 81 MG] 81 mg PO DAILY #90 tablet. Atorvastatin Calcium [Lipitor] 40 mg PO BEDTIME #30 tab Folic Acid 1 mg PO DAILY #90 tablet Metoprolol Tartrate [Lopressor*] 25 mg PO BID #60 tab Patient Discharge Instructions: 1. Patient will be transferred to inpatient rehab. 2. Patient presented with ataxia. Patient with history of multiple sclerosis. Patient was admitted for further evaluation. MRI showed no acute infarct. Extensive periventricular white matter signal abnormality noted. No enhancing focus to indicate active demyelination. Patient also found to have developmental absence of corpus callosum. During his stay patient was evaluated by physical therapy and neurology. Patient appears to have advanced relapsing remitting multiple sclerosis. Patient was not safe to discharge home. Recommendation was for inpatient rehabilitation. Patient accepted. At discharge his ataxia has improved with therapy. Patient will be transferred to inpatient rehab to continue his care. At discharge patient will continue with his current medications of amantadine 100 mg daily and Glatopa 20 mg subcu daily for his multiple sclerosis. Further adjustment to his medication can be done by neurology in inpatient rehab. 3. Patient also found to have hypertension. This was uncontrolled upon admission. Patient was started on medication-lisinopril. This was discontinued due to renal insufficiency. This was transitioned to metoprolol. Blood pressure improved with medication. At discharge will continue with metoprolol 25 mg 1 pill twice daily. Recommend to maintain blood pressures less 150/80. Further adjustment can be done by his PCP. Renal ultrasound shows no renal artery stenosis. 4. Patient with hyperlipidemia. LDL to elevated. Due to his hypertension and risk factors for CVA, recommendation is to continue with Lipitor 40 mg daily. 5. Patient with depression with anxiety. Patient will continue with Wellbutrin XL 300 mg daily. 6. Patient with BPH. Patient continue with Flomax 0.4 mg daily. Diet: AHA Activity: Fall precautions Time spent managing pt's care (in minutes): 55
[2018-08-06 11:42] VITALS: O2SAT 99
[2018-08-06 13:20] VITALS: BP 151/82; TEMP 98.1
== END 2018-08-06 15:30 ==
LOC: ER 08:44 → ERHOLD 11:12 → 2ND 13:56
PROVIDERS: ADMIT Family Medicine; ATTEND Family Medicine
DX: G35 Multiple sclerosis (principal); R27.0 Ataxia, unspecified; I10 Essential (primary) hypertension; N28.9 Disorder of kidney and ureter, unspecified; E78.5 Hyperlipidemia, unspecified; N40.0 Benign prostatic hyperplasia without lower urinary tract symptoms; Q04.0 Congenital malformations of corpus callosum; F41.8 Other specified anxiety disorders
CPT/HCPCS: 36415; 70450; 70553; 80048; 80061; 81003; 81015; 82550; 82553; 82607; 82746; 83735; 84439; 84443; 84484; 85025; 85610; 85730; 93005; 93306; 93880; 93975; 96374; 97116; 97163; 97167; 99285; A9577; G0378; J0360; J1650; J2930; J7030

== ENCOUNTER 2018-08-06 10:03 | Inpatient (IN) | payer BC ==
--- NOTE | 2018-08-06 11:41 | R.PREADM ---
SCREENING DATE AND TIME 08/06/2018 10:21 (CDT) ANTICIPATED REHAB ADMISSION DATE 08/08/2018 REFERRING FACILITY [facility] REFERRAL DATE AND TIME 08/06/2018 10:21 (CDT) REFERRAL ROOM# 214 ACUTE ADMIT DATE 08/04/2018 Previous Rehabilitation(s): No. 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 Jin Delvalle M.D. MR# [id number] NAME ERNESTO SINCLAIR ADDRESS [address] [facility] [facility] [id number] DATE OF 1960 AGE 57 SSN# [id number] GENDER male MARITAL STATUS Single (Never ) RACE white ADMIT FROM 02 - [facility] PRE-HOSPITAL LIVING SETTING 01 - Home (private home/apt. board/care, assisted living, alf, transitional living) HOME TYPE AND DETAILS Type of home: single family house # of steps within the residence: 0 # of levels in the residence: 1 # of steps to enter the residence: 0 PRE-HOSPITAL LIVING WITH Alone FAMILY SUPPORT Yes PRIMARY FAMILY CONTACT NAME Josseline Sinclair PRIMARY FAMILY CONTACT PHONE PRIMARY FAMILY CONTACT RELATIONSHIP Father PHONE PRIMARY FAMILY CONTACT ON ADM.? no IS PRIMARY FAMILY CONTACT AUTH. REP.? no 1ST EMERGENCY CONTACT Josseline Sinclair 1ST CONTACT PHONE 1ST CONTACT RELATIONSHIP Father PHONE 1ST CONTACT ON ADM. no IS 1ST CONTACT AUTH. REP.? no PHONE 2ND CONTACT ON ADM.? 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 No ANOTHER CONSTITUTION PARTY RESPONSIBLE? No PRIMARY REHAB/ACUTE DIAGNOSIS: Multiple Sclerosis ONSET DATE 08/04/2018 REHAB IMPAIRMENT CATEGORY (MOIZ): 06 Neurological (Neuro) MEETS 60% rule PRIMARY DIAGNOSIS-RELATED SURGERIES: N/A COMORBID REHAB/ACUTE DIAGNOSES: - N/A Depression Anxiety Erectile Dysfunction INTERVENTIONS: - Depression Medications Psycho/social Safety RISK FOR COMPLICATIONS: - Depression Serotonin side effects SUMMARY OF ACUTE HOSPITALIZATION: Pt. is a 57 yo Right-handed white male. On 08/04/2018 he was admitted to [facility] with diagnosis Multiple Sclerosis. His impairment category is Neurologic Conditions 03 - Multiple Sclerosis (03.1). Pre-morbidly, Pt. was independent/mod-I in Self-Care, Sphincter Control, Transfers Control, Locomotio n, Communication, and Social Cognition; and he had good Sphincter Control. Currently, he has deficits of Transfers Control, Locomotion, Endurance, Balance, Safety Awareness, an d Self-Care. Pt. is now referred to [facility] for acute in-patient rehabilitation in order to maximize patient's functional independence in activities of daily living, strength, ROM, and mobi lity. Patient has realistic goal of being discharged at assistance level 6-Aster to reside at Home with Fam lety/Relatives. Ernesto Sinclair is a 57 year old male that lives alone in a single sher home. 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 On 08/04/2018, he woke up with ataxia, was going up to the bathroom and fell down and was admitted to [facility] and treated. He is now medically stable but in need of 24-hour nursing, doctor supervision and oversite while receiving The patient is reasonably expected to participate in 3hours of therapy a day/15 hours per week and receive care with an intensive interdisciplinary approach. PAST MEDICAL HISTORY Anxiety Depression Erectile Dysfunction PAST SURGICAL HISTORY: Penile Implant MEDICATION ALLERGIES: No Known Drug Allergies (NKDA) ENVIRONMENTAL ALLERGIES: None Known - Substance Allergies None Known - Other Allergies None Known CODE STATUS: Full code WEIGHT/HEIGHT/BMI: WEIGHT 200 lbs HEIGHT 6' 1" BMI 26.4 DIET: - Diet Type Heart Healthy - Diet - Solid Texture Regular - Diet - Liquid Texture Regular - Tube Feed N/A REVIEW OF SYSTEMS: - Gen Alert and awake Lying in bed No apparent distress Oriented to: person, time, and place - Vital Signs Temperature: 97.7 F SBP/DBP: 155/87 Pulse: 66 Resp: 16 Vital signs stable, afebrile - CVS RRR VITAL SIGNS Temperature: 97.7 F SBP/DBP: 155/87 Pulse: 66 Resp: 16 Vital signs stable, afebrile CURRENT SPHINCTER CONTROL: Pre-hospital bladder status: continent # of bladder accidents in the last 7 days prior to screenin Pre-hospital bowel status: continent # of bowel accidents in the last 7 days prior to screenin Last Bowel Movement Date: 08/05/2018 DETAILED CURRENT FUNCTIONAL STATUS: - Bladder accident frequency: Ind - No accidents in the past 7 days - Bowel accident frequency: Ind - No accidents in the past 7 days - Walking score based on distance walked: 3(>=150ft) - Wheelchair score based on distance traveled: 3(>=150ft) FUNCTIONAL STATUS: - Self-Care A. Eating Ind Aster B. Grooming Ind sup C. Bathing Ind sup D. Dressing - Upper Ind sup E. Dressing - Lower Ind maxA F. Toileting Ind sup - Sphincter Control G: Bladder control Ind Ind H: Bowel control Ind Ind - Transfers Control I. Bed/Chair/Wheelchair Ind Flaca J. Toilet Ind Flaca K. Tub/Shower Ind ADNO - Locomotion L. Walk/Wheelchair (C) Ind Flaca L. Walk/Wheelchair (W) Ind Flaca M. Stairs Ind ADNO - Communication N. Comprehension (B) Ind Ind O. Expression (B) Ind Ind - Social Cognition P. Social Interaction Ind Ind Q. Problem Solving Ind Ind R. Memory Ind Ind - Endurance Fair - Balance Poor - Safety Awareness Fair CURRENT FUNC. DEFICITS: Transfers Control, Locomotion, Endurance, Balance, Safety Awareness, and Self-Care THERAPY NOTES FROM ACUTE CARE: Attached. SPECIAL NEEDS: - Safety Concerns Skin breakdown precautions needed due to skin breakdown risk PATIENT NEEDS ACTIVE AND ONGOING THERAPEUTIC INTERVENTION OF MULTIPLE THERAPY DISCIPLINES, INCLUDING: - Occupational Therapy Evaluate and Treat. - Physical Therapy Evaluate and Treat. PATIENT NEEDS CLOSE MEDICAL SUPERVISION BY A REHABILITATION PHYSICIAN FOR: Bowel and Bladder Management Coordination of Treatment Team Medical and Co-Morbidity Management DVT Management PATIENT REQUIRES 24X7 REHAB NURSING FOR MEDICAL AND FUNCTIONAL MGT. OF THE FOLLOWING DEFICITS: ADL's Ambulation Bowel and Bladder Management Communication Disease Management Medication Management Patient/Family Education Providing Safe Environment Transfers DVT Management Pain Management PATIENT REQUIRES INTENSIVE, COORDINATED INTERDISCIPLINARY APPROACH TO REHAB: Arranging Home Equipment/Services Discharge Planning Family Intervention/Training Software Asset Manager/Case Management PATIENT REHAB POTENTIAL: Expected level of measurable improvement will be of a practical value to patient's functional capacit y or adaptations to impairments Has a viable Discharge Plan Medically appropriate; condition is sufficiently stable to participate in intensive rehab program Patient is able and expected to receive 3 hours of individualized therapy daily on at least 5 of ever y 7 days Patient's prognosis for significant practical improvement within a reasonable period of time appears Good DISCHARGE PLAN: - Estimated Length of Stay (days) 13. - Consensus on plan Discharge plan has been discussed with primary caregiver. Patient/Family is in agreement with the dani n. Primary caregiver is in agreement with the plan. - Patient/Family Goals Return home with assistance. - Planned Living Setting Upon Discharge Home, to live with Family/Relatives. RECOMMENDED CARE LEVEL: IRF RECOMMENDATION DETAILS: Recommended Admission to Comprehensive Rehabilitation Program to Increase Functional Lamb SCREENER'S COMPLETENESS CONFIRMATION: - Screening Confirmation The patient data collection on this preadmission screening form is finished PHYSICIANS REVIEW AND ADMISSION DETERMINATION Admit - Based on my review of the Pre-Admission Screening results, in my medical judgment and experie nce, I concur with the findings and recommend admission to [facility], as this patient requires an IRF level of care. SIGNATURE PANEL: Clinical Liaison - [electronically] signed by Florencio Butterfield on 08/06/2018 at 11:09 (CDT) Physician Reviewer - [electronically] signed by Dr. Jin Delvalle M.D. on 08/06/2018 at 11:40 (CDT )
[2018-08-06 16:35] VITALS: BMI 28.0
[2018-08-06] MEDS: METOPROLOL TAR 25 MG TAB PO SCH (17:09)
[2018-08-06] MEDS ORDERED: DOCUSATE NA/SENNA CONC 1 TAB PO PRN (17:27)
[2018-08-06] MEDS ORDERED: TRAMADOL HCL 50 MG TAB PO PRN (17:27)
--- NOTE | 2018-08-06 18:07 | R.HP ---
FACILITY: [facility] ENCOUNTER DATE AND TIME: 08/06/2018 18:00 (CDT) MR#: [id number] NAME ERNESTO ROCHE ADDRESS: [address] [place] [address]: [place]IP [id number] PHONE: DATE OF : 1960 AGE: 57 SSN# [id number] GENDER: Male DEXTERITY Right-handed MARITAL STATUS Single (Never ) RACE White PRE-HOSPITAL LIVING SETTING 01 - Home (private home/apt. board/care, assisted living, retirement, transitional living) PRE-HOSPITAL LIVING WITH Alone ENCOUNTER PHYSICIAN: Dr. Jin Delvalle M.D. REFERRING DOCTOR: rohan Reis DATE OF ADMISSION: 08/06/2018 15:32 (CDT) REFERRING FACILITY [facility] HOME TYPE AND DETAILS: Type of home: single family house # of steps within the residence: 0 # of levels in the residence: 1 # of steps to enter the residence: 0 ADMISSION DIAGNOSIS: Multiple Sclerosis ONSET DATE: 08/04/2018 PRIMARY DIAGNOSIS-RELATED SURGERIES: N/A SECONDARY/COMORBID DIAGNOSES (TIERED): - N/A Depression Anxiety Erectile Dysfunction HISTORY OF PRESENT ILLNESS (HPI): Pt. is a 57 yo Right-handed white male. On 08/04/2018 he was admitted to [facility] with diagnosis Multiple Sclerosis. His impairment category is Neurologic Conditions 03 - Multiple Sclerosis (03.1). Pre-morbidly, Pt. was independent/mod-I in Self-Care, Sphincter Control, Transfers Control, Locomotio n, Communication, and Social Cognition; and he had good Sphincter Control. Currently, he has deficits of Transfers Control, Locomotion, Endurance, Balance, Safety Awareness, an d Self-Care. Pt. is now referred to [facility] for acute in-patient rehabilitation in order to maximize patient's functional independence in activities of daily living, strength, ROM, and mobi lity. Patient has realistic goal of being discharged at assistance level 6-Aster to reside at Home with Fam lety/Relatives. Ernesto Roche is a 57 year old male that lives alone in a single sher home. 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 On 08/04/2018, he woke up with ataxia, was going up to the bathroom and fell down and was admitted to [facility] and treated. He is now medically stable but in need of 24-hour nursing, doctor supervision and oversite while receiving The patient is reasonably expected to participate in 3hours of therapy a day/15 hours per week and receive care with an intensive interdisciplinary approach. MEDICATION ALLERGIES: No Known Drug Allergies (NKDA) ENVIRONMENTAL ALLERGIES: None Known - Substance Allergies None Known - Other Allergies None Known PAST MEDICAL HISTORY: Anxiety Depression Erectile Dysfunction PAST SURGICAL HISTORY: Penile Implant FAMILY HISTORY: Family history is not contributory. SOCIAL HISTORY: - Home Living Alone REVIEW OF SYSTEMS: - Gen No Chills Fatigue No Fever - Eyes No Double Vision No itchiness - ENMT No Difficulty Swallowing - CVS No Chest Discomfort No Chest Pain Fatigue No Weight Gain - Resp No Cough No Shortness of Breath - GI Continent No Abdominal Pain No Constipation No Diarrhea - Continent No Kidney Pain No Painful Urination Inability to Control Bladder - MSK No Joint Pain Muscle Cramps No Stiffness - Skin No Itching No Rash No Suspicious Lesions - Neuro Coordination Difficulty No Difficulty with Concentration No Memory Loss No Seizures Weakness - Psych No Anxiety No Depression No HIV Exposure No Persistent Infections No Seasonal Allergies - Endo No Cold/Heat Intolerance No Excessive Hunger No Excessive Thirst No Excessive Urination PHYSICAL EXAM - Gen Alert and awake Lying in bed No apparent distress Oriented to: person, time, and place - Skin No breakdown No abnormalities - Eyes No abnormalities - ENMT No abnormalities - Neck No abnormalities - CVS RRR - Chest No abnormalities - Abd Soft - GI nondistended Deferred - No abnormalities - Ext No significant edema - MSK 4+/5 weakness in both lower extremities. - Neuro No focal deficits - Psych No abnormalities VITAL SIGNS Temperature: 97.7 F SBP/DBP: 139/77 Pulse: 59 Resp: 14 NURSING: - Shower allowing shower - Bladder care per protocol - Skin care per protocol ACTIVITIES OOB only with supervision FUNCTIONAL STATUS: - Self-Care A. Eating Ind Aster B. Grooming Ind sup C. Bathing Ind sup D. Dressing - Upper Ind sup E. Dressing - Lower Ind maxA F. Toileting Ind sup - Sphincter Control G: Bladder control Ind Ind H: Bowel control Ind Ind - Transfers Control I. Bed/Chair/Wheelchair Ind Flaca J. Toilet Ind Flaca K. Tub/Shower Ind ADNO - Locomotion L. Walk/Wheelchair (C) Ind Flaca L. Walk/Wheelchair (W) Ind Flaca M. Stairs Ind ADNO - Communication N. Comprehension (B) Ind Ind O. Expression (B) Ind Ind - Social Cognition P. Social Interaction Ind Ind Q. Problem Solving Ind Ind R. Memory Ind Ind - Endurance Fair - Balance Poor - Safety Awareness Fair CURRENT FUNC. DEFICITS: Transfers Control, Locomotion, Endurance, Balance, Safety Awareness, and Self-Care ASSESSMENT: Pt. is a 57 yo Right-handed white male.On 08/04/2018 he was admitted to [facility] with diagnosis Multiple Sclerosis.His impairment category is Neurologic Conditions 03 - Multiple Sclerosis (03.1).Pre-morbidly, Pt. was independent/mod-I in Self-Care, Sphincter Control, Transfers Control, Locomotion, Communication, and Social Cognition; and he had good Sphincter Control.Currently , he has deficits of Transfers Control, Locomotion, Endurance, Balance, Safety Awareness, and Self-Ca re.Pt. is now referred to [facility] for acute in-patient rehabilitation in or [facility] to maximize patient's functional independence in activities of daily living, strength, ROM, and m obility.- Rehab Goal Patient has realistic goal of being discharged at assistance level 6-Aster to reside at Home with Fam lety/Relatives. Ernesto Roche is a 57 year old male that lives alone in a single sher home. 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 On 08/04/2018, he woke up with ataxia, was going up to the bathroom and fell down and was admitted to [facility] and treated. He is now medically stable but in need of 24-hour nursing, doctor supervision and oversite while receiving The patient is reasonably expected to participate in 3hours of therapy a day/15 hours per week and receive care with an intensive interdisciplinary approach.REHAB PLAN: - Physical Therapy Gait dysfunction - to improve, our physical therapists will perform initial evaluation of pt's status upon admission and devise an individualized program for Gait Training, and Wheel Chair mobility Inability to transfer - to improve, our physical therapists will perform initial evaluation of pt's s tatus upon admission and devise an individualized program for Bed mobility Need for home safety evaluation - to improve, our physical therapists will perform initial evaluation of pt's status upon admission and devise an individualized program for Home Evaluation Need in caregiver upon discharge - to improve, our physical therapists will perform initial evaluatio n of pt's status upon admission and devise an individualized program for Caregiver Training New precaution - to improve, our physical therapists will perform initial evaluation of pt's status u edmund admission and devise an individualized program for Patient precaution education Edema - to improve, our physical therapists will perform initial evaluation of pt's status upon admi ssion and devise an individualized program for Elevation Training, and Lymphedema Therapy Poor balance - to improve, our physical therapists will perform initial evaluation of pt's status upo n admission and devise an individualized program for Balance Training Poor endurance - to improve, our physical therapists will perform initial evaluation of pt's status u edmund admission and devise an individualized program for Endurance Training Weakness - to improve, our physical therapists will perform initial evaluation of pt's status upon ad mission and devise an individualized program for Aquatic Therapy, Neuromuscular Reeducation, and Stre ngthening Achieving independence - to improve, our physical therapists will perform initial evaluation of pt's status upon admission and devise an individualized program for Community Reintegration Activities - Occupational Therapy ADL deficits - to improve, our occupation therapists will perform initial evaluation of pt's status u edmund admission and devise an individualized program for Bathing, Bed mobility, Community Reintegration , Cooking, Dressing, Eating, Fine Motor Skills, Grooming, Homemaking, Kitchen Mobility, Laundry, Eleni ent Education, Safety Awareness, Splinting - Positioning, Transfers(Toilet, Tub, Shower), and Wheel C hair Management Need for emergency care attendant - to improve, our occupation therapists will perform initial evaluation of pt's s tatus upon admission and devise an individualized program for Caregiver Training Weakness - to improve, our occupation therapists will perform initial evaluation of pt's status upon admission and devise an individualized program for Aquatic Therapy, Balance, Endurance, UE ROM, and U E strengthening MEDICAL PLAN: - Diet Type Start Heart Healthy - Diet - Liquid Texture Start Regular - Tube Feed Start N/A - Bladder care per protocol - Skin care per protocol - Diet - Solid Texture Regular - Shower shower DISCHARGE PLAN: - Estimated Length of Stay (days) 13. - Consensus on plan Discharge plan has been discussed with primary caregiver. Patient/Family is in agreement with the dani n. Primary caregiver is in agreement with the plan. - Patient/Family Goals Return home with assistance. - Planned Living Setting Upon Discharge Home, to live with Family/Relatives. SIGNATURE PANEL: (CDT)
--- NOTE | 2018-08-06 18:09 | PAPE ---
PATIENT: [facility] MR# [id number] REFERRING DOCTOR rohan Reis EVALUATION DATE AND TIME 08/06/2018 18:07 (CDT) NAME DIEGO SINCLAIR DATE OF 1960 AGE 57 PHONE SSN# [id number] GENDER male EVALUATING PHYSICIAN Dr. Jin Delvalle M.D. ADMISSION DIAGNOSIS: Multiple Sclerosis ONSET DATE 08/04/2018 SECONDARY/COMORBID DIAGNOSES TIERED: - N/A Depression Anxiety Erectile Dysfunction POST-ADMISSION FUNCTIONAL/MEDICAL STATUS: - Bladder Same accident frequency: Ind - No accidents in the past 7 days - Bowel Same accident frequency: Ind - No accidents in the past 7 days - Walking Same score based on distance walked: 3(>=150ft) - Wheelchair Same score based on distance traveled: 3(>=150ft) STATUS CHANGE EVALUATION: No change in Functional or Medical Status is identified compared with Pre-Admission screening. PATIENT NEEDS CLOSE MEDICAL SUPERVISION BY A REHABILITATION PHYSICIAN FOR: Bowel and Bladder Management Coordination of Treatment Team Medical and Co-Morbidity Management DVT Management PATIENT REQUIRES 24X7 REHAB NURSING FOR MEDICAL AND FUNCTIONAL MGT. OF THE FOLLOWING DEFICITS: ADL's Ambulation Bowel and Bladder Management Communication Disease Management Medication Management Patient/Family Education Providing Safe Environment Transfers DVT Management Pain Management PATIENT REQUIRES INTENSIVE, COORDINATED INTERDISCIPLINARY APPROACH TO REHAB: Arranging Home Equipment/Services Discharge Planning Family Intervention/Training Stadium Attendant/Case Management LIST OF IDENTIFIED AND POTENTIAL PROBLEMS: Alteration in leisure activities Bladder, Incontinence Bowel, Incontinence Depression, Actual or Potential Infection, Actual or Potential Mobility Impaired Pain, Alteration in Comfort Self Care Deficit Skin Integrity, Actual or Potential Urinary Tract Infection (UTI), Actual or Potential RISK FOR COMPLICATIONS - Depression Serotonin side effects. INTERVENTIONS - Depression Medications. Psycho/social. Safety. PATIENT COULD BE AT RISK FOR COMPLICATIONS FROM ADVERSE MEDICAL CONDITIONS DUE TO HIS/HER COMORBIDITI ES AND THE RIGORS OF THE INTENSIVE REHABILLITATION PROGRAM. METHODS OR INTERVENTIONS TO AVOID COMPLIC ATIONS INCLUDE: - Deep Vein Thrombosis (DVT) Prophylaxis therapy for prevention . Sequential Compression Device (SCD). TE D Hose. - Infection Clinical staff to assess and manage the signs and symptoms of infection including fever, redness, war mth, etc. - Urinary Tract Infection - Falls Patient will be evaluated for Fall Precautions and will be placed on Fall Precautions as indicated pe r protocol. - Skin Breakdown Nursing will assess skin daily using assessment tool and will place on Skin Breakdown Precautions as indicated per protocol. - Pain Clinical staff may employ non-medication methods such as massage, distraction, decrease stimulus, etc . as needed. Clinical staff will assess patient's pain level every shift per protocol to assess and e nsure pain management effectiveness. Medications will be given and the pain level re-assessed. PRELIMINARY PLAN OF CARE: - Physical Therapy Patient needs Physical Therapy for a daily minimum of 1.5 hours at least 5 out of 7 days, to improve: Mobility, Strengthening, Transfers, Stretching, ROM, Endurance, Ability to manage stairs, Gait, and Balance. - Rehabilitation Nursing Patient requires 24x7 Rehabilitation Nursing for: Pain Issues, Identifying and preventing risk factor s, Monitoring and reporting current medical conditions, Assisting with ambulation and transfer, Gretel ting with all ADL-s, Teaching patients about disease process and medications, Family teaching, Provid ing safe environment, Bowel and Bladder Issues, Skin Integrity, and Medication Management. Patient needs Stadium Attendant and/or Case Management for: Discharge Planning, Arranging Home Equipmen t or Services, and Family Interventions. - Dietary and Nutrition Services Patient needs Dietary and Nutrition Services for: Adequate Nutrition, Nutritional Supplements, and Nu tritional Education. - Occupational Therapy Patient needs Occupational Therapy for a daily minimum of 1.5 hours at least 5 out of 7 days, to impr ove Activities of Daily Living, including: Eating, Grooming, Bathing, Dressing, Toileting, Toilet Tra nsfers, Community Reintegration, Higher functional activities, Adaptive Equipment, Splinting, Househo ld Tasks, and Other activities as determined. POTENTIAL FUNCTIONAL GOALS FOR PATIENT TO ACHIEVE BY DISCHARGE: - Safety Precaution Patient will remain free from falls or injury at time of discharge. - Bed Mobility Patient will perform bed mobility at 4-Flaca level of assistance. - Transfers Patient will complete transfers from bed to chair at 4-Flaca level of assistance. - Mobility Patient will ambulate 150 ft with 4-Flaca level of assistance with RW. PATIENT REHAB POTENTIAL Expected level of measurable improvement will be of a practical value to patient's functional capacit y or adaptations to impairments Has a viable Discharge Plan Medically appropriate; condition is sufficiently stable to participate in intensive rehab program Patient is able and expected to receive 3 hours of individualized therapy daily on at least 5 of ever y 7 days Patient's prognosis for significant practical improvement within a reasonable period of time appears Good DISCHARGE PLAN: - Estimated Length of Stay (days) 13. - Consensus on plan Discharge plan has been discussed with primary caregiver. Patient/Family is in agreement with the dani n. Primary caregiver is in agreement with the plan. - Patient/Family Goals Return home with assistance. - Planned Living Setting Upon Discharge Home, to live with Family/Relatives. CONCLUSION ON REHABILITATION NECESSITY: I have evaluated patient's pre-admission functional status and, comparing it to the patient's post-ad mission functional status now, I conclude that the pre-admission assessment was accurate. Patient's c ondition on admission supports the medical necessity of admission to IR[facility]. It is safe to proceed with patient's therapy program. SIGNATURE PANEL: (CDT)
[2018-08-06 19:21] LABS: Urine Appearance CLEAR; Urine Bilirubin NEGATIVE (NEG); Urine Blood NEGATIVE (NEG); Urine Color YELLOW; Urine Glucose NEGATIVE (NEG); Urine Protein NEGATIVE (NEG); Urine Specific Gravity 1.015 (1.005-1.030); Urine pH 6.5 (5.0-7.0)
[2018-08-06 19:30] LABS: Urine Bacteria NONE SEEN /HPF (NONE SEEN); Urine Culture Reflex Order NOT NEEDED; Urine RBC NONE SEEN /HPF (NONE SEEN)
[2018-08-06] MEDS: ATORVASTATIN 40 MG TAB PO SCH (20:42)
[2018-08-06] MEDS: APIXABAN 2.5 MG TABLET PO SCH (20:42)
--- NOTE | 2018-08-07 01:06 | FAST ---
SHIFT START DATE/TIME: 08/06/2018 19:00 (CDT) SHIFT END DATE/TIME: 08/07/2018 07:00 (CDT) NAME DIEGO SINCLAIR DATE OF : 1960 DATE OF ADMISSION: 08/06/2018 15:32 (CDT) PHONE: AGE: 57 SSN# [id number] GENDER: Male ENCOUNTER PHYSICIAN: Dr. Jin Delvalle M.D. ADMISSION DIAGNOSIS: - Neurologic Conditions 03 - Multiple Sclerosis (03.1) Multiple Sclerosis. EATING: Activity did not occur on this shift EATING - SCORE: 0-UNK GROOMING: Oral care Wash, rinse, and dry hands GROOMING - STEP 1: Does the patient require the assistance of a person or device, or need extra time when grooming? Yes. GROOMING - STEP 2: Does the patient require the assistance of a helper? No. The patient only requires an assistive devic e, OR takes more than reasonable time to groom, OR there is a concern for safety as the patient groom s GROOMING - SCORE: 6-NADIA BATHING: Activity did not occur on this shift BATHING - SCORE: 0-UNK DRESSING - UPPER BODY: Patient is not dressing in public clothing ARTICLES SCORE Total number of steps: 0 DRESSING - UPPER BODY - SCORE: 0-UNK DRESSING - LOWER BODY: Patient is not dressing in public clothing ARTICLES SCORE Total number of steps: 0 DRESSING - LOWER BODY - SCORE: 0-UNK TOILETING: TOILETING - STEP 1: Does the patient require the assistance of a person or device, or need extra time with toileting? Yes . TOILETING - STEP 2: Does the patient require the assistance of a helper? Yes. TOILETING - STEP 3: How much assistance does the patient require from the helper? Only supervision TOILETING - SCORE: 5-SUP BLADDER MANAGEMENT: BLADDER MANAGEMENT - STEP 1: Does the patient control the bladder completely and intentionally without equipment or devices or med ications, and is always continent? Yes. BLADDER MANAGEMENT - SCORE: 7-IND BOWEL MANAGEMENT: BOWEL MANAGEMENT - STEP 1: Does the patient control bowels completely and intentionally without equipment devices or medications AND is always continent? No. BOWEL MANAGEMENT - STEP 2: Does the patient require the assistance of a helper? No, patient requires medication for control such as stool softeners, suppositories, laxatives, enemas, or OTC medications BOWEL MANAGEMENT - SCORE: 6-NADIA TRANSFERS: BED, CHAIR, WHEELCHAIR: TRANSFERS: BED, CHAIR, WHEELCHAIR - STEP 1: Does the patient require assistance of a person or device, or need extra time with bed, chair, or whe elchair transfers? Yes. TRANSFERS: BED, CHAIR, WHEELCHAIR - STEP 2: Does the patient require the assistance of a helper? Yes. TRANSFERS: BED, CHAIR, WHEELCHAIR - STEP 3: How much assistance does the patient require from the helper? Steadying/guiding assistance TRANSFERS: BED, CHAIR, WHEELCHAIR - SCORE: 4-MIN TRANSFERS: TOILET: TRANSFERS: TOILET - STEP 1: Does the patient require the assistance of a person or device, or need extra time with toilet transfe rs? Yes. TRANSFERS: TOILET - STEP 2: Does the patient require the assistance of a helper? No. Patient only requires an assistive device chau ch as a grab bar or special seat, OR s/he takes more than reasonable time to perform toilet transfers , OR there is a safety concern when s/he performs toilet transfers. TRANSFERS: TOILET - SCORE: 6-NADIA TRANSFERS: SHOWER: Activity did not occur on this shift TRANSFERS: SHOWER - SCORE: 0-UNK TRANSFERS: TUB: Activity did not occur on this shift TRANSFERS: TUB - SCORE: 0-UNK LOCOMOTION: WALK: Activity did not occur on this shift LOCOMOTION: WALK - SCORE: 0-UNK LOCOMOTION: WHEELCHAIR: Activity did not occur on this shift LOCOMOTION: WHEELCHAIR - SCORE: 0-UNK COMPREHENSION: COMPREHENSION: TYPE: Both COMPREHENSION - STEP 1: Does the patient require help from a person or device, or need extra time to understand complex and a bstract ideas (such as current events, finances, discharge planning, medical issues, relationships, e tc)? No. COMPREHENSION - STEP 2: Does the patient need extra time, require an assistive device (such as glasses for visual comprehensi on or a hearing aid for auditory comprehension) or does s/he have mild difficulty understanding compl ex and abstract information? Yes. COMPREHENSION - SCORE: 6-NADIA EXPRESSION EXPRESSION: TYPE: Both EXPRESSION - STEP 1: Does the patient require help from a person or device, or need extra time expressing complex and abst ract ideas (such as current events, finances, discharge planning, medical issues, relationships, etc) ? No. EXPRESSION - STEP 2: Does the patient need extra time, require an assistive device (such as augmentive communication syste m or a communication board), OR does s/he have mild difficulty expressing complex and abstract ideas (including mild dysarthria or mild word-find problems)? No. EXPRESSION - SCORE: 7-IND SOCIAL INTERACTION: SOCIAL INTERACTION - STEP 1: Does the patient require a helper to interact with others in social and therapeutic situations? No. SOCIAL INTERACTION - STEP 2: Does the patient need extra time in social situations, OR does s/he interact with staff, other patien ts, and family members ONLY in structured environments, OR does s/he require medication for social in teraction? Yes, patient requires medication for social interaction SOCIAL INTERACTION - SCORE: 6-NADIA PROBLEM SOLVING: PROBLEM SOLVING - STEP 1: Does the patient need help from a person or device, or need extra time to solve complex problems such as managing a checking account or confronting interpersonal problems? No. PROBLEM SOLVING - STEP 2: Does the patient require extra time to make decisions or solve problems, OR does s/he have slight dif ficulty reading, initiating, or self-correcting in unfamiliar situations? Yes, patient needs extra ti me. PROBLEM SOLVING - SCORE: 6-NADIA MEMORY: MEMORY - STEP 1: Does the patient need help from a person or device, or need extra time to remember frequently encount ered people, daily routines, and executing requests? No. MEMORY - STEP 2: Does the patient have slight difficulty recognizing frequently encountered people, daily routines, or executing requests without the need for repetition or using self-initiated or environmental cues to remember? Yes. MEMORY - SCORE: 6-NADIA SIGNATURE PANEL: The following modified sections: Eating - Score, Grooming - Score, Dressing - Upper Body - Score, John ssing - Lower Body - Score, Toileting - Score, Bladder Management - Score, Bowel Management - Score, Transfers: Bed, Chair, Wheelchair - Score, Transfers: Toilet - Score, Transfers: Shower - Score, Mensah sfers: Tub - Score, Locomotion: Walk - Score, Locomotion: Wheelchair - Score, Comprehension - Score, Expression - Score, Social Interaction - Score, Problem Solving - Score, Memory - Score were [electro nically] signed by Gisela Gay CNA on SatAug 07 2018 01:05:05 GMT-0500 (Central Daylight Time)
[2018-08-07] MEDS: METOPROLOL TAR 25 MG TAB PO SCH ×2 (05:22→17:20)
[2018-08-07 05:58] LABS: Absolute Lymphocytes (CBC) 2.2 K/uL (0.7-4.9); Absolute Monocytes 0.6 K/uL (0.1-1.3); Absolute Neutrophil 5.1 K/uL (1.8-8.0); Basophils % 0.7 % (0-1.3); Eosinophils % 3.8 % (0-4.4); Hematocrit 45.4 % (39.6-49.0); MPV 8.2 fL (7.6-11.3); Monocytes % 6.7 % (3.3-12.3); RBC Red Blood Cell Count 5.13 M/uL (4.33-5.43)
[2018-08-07 06:21] LABS: Albumin 3.8 g/dL (3.4-5.0); Magnesium 2.4 mg/dL (1.8-2.4); Potassium 3.9 mmol/L (3.5-5.1); Prealbumin 36.2 mg/dL (20-40)
[2018-08-07] MEDS: GLATIRAMER ACETATE 20 MG SQ SCH ×2 (08:00)
[2018-08-07] MEDS: AMANTADINE 100 MG CAP PO SCH (08:17)
[2018-08-07] MEDS: ASPIRIN EC 81 MG TAB PO SCH (08:17)
[2018-08-07] MEDS: FOLIC ACID 1 MG TABLET PO SCH (08:17)
[2018-08-07] MEDS: BUPROPION HCL XL 150 MG TAB PO SCH (08:18)
[2018-08-07] MEDS: APIXABAN 2.5 MG TABLET PO SCH ×2 (08:18→20:26)
[2018-08-07] MEDS: TAMSULOSIN 0.4 MG SR CAP PO SCH (08:18)
--- NOTE | 2018-08-07 09:26 | P.RH.PN ---
Estimated Length of Stay: 14 Expected Discharge Date: 08/19/18 Discharge Disposition Plan: Home Family Support: Yes Prison Goal: Mobility, Transfers, Self Care Vital Signs: Last Vital Signs Temp 97.9 F 08/06/18 20:13 Pulse 65 08/07/18 05:22 Resp 16 08/06/18 20:13 BP 160/89 H 08/07/18 05:22 Pulse Ox 97 08/06/18 20:13 Laboratory: Laboratory Last Values WBC 8.2 K/uL (4.3-10.9) D 08/07/18 05:41 RBC 5.13 M/uL (4.33-5.43) 08/07/18 05:41 Hgb 15.1 g/dL (13.6-17.9) 08/07/18 05:41 Hct 45.4 % (39.6-49.0) 08/07/18 05:41 MCV 88.6 fL (80-100) 08/07/18 05:41 MCH 29.4 pg (27.0-35.0) 08/07/18 05:41 MCHC 33.2 g/dL (32.0-36.0) 08/07/18 05:41 RDW 14.2 % (12.1-15.2) 08/07/18 05:41 Plt Count 214 K/uL (152-406) 08/07/18 05:41 MPV 8.2 fL (7.6-11.3) 08/07/18 05:41 Neutrophils % 61.8 % (41.7-73.7) 08/07/18 05:41 Lymphocytes % 27.0 % (15.3-44.8) 08/07/18 05:41 Monocytes % 6.7 % (3.3-12.3) 08/07/18 05:41 Eosinophils % 3.8 % (0-4.4) 08/07/18 05:41 Basophils % 0.7 % (0-1.3) 08/07/18 05:41 Absolute Neutrophils 5.1 K/uL (1.8-8.0) 08/07/18 05:41 Absolute Lymphocytes 2.2 K/uL (0.7-4.9) 08/07/18 05:41 Absolute Monocytes 0.6 K/uL (0.1-1.3) 08/07/18 05:41 Absolute Eosinophils 0.3 K/uL (0-0.5) 08/07/18 05:41 Absolute Basophils 0.1 K/uL (0-0.5) 08/07/18 05:41 Sodium 142 mmol/L (136-145) 08/07/18 05:41 Potassium 3.9 mmol/L (3.5-5.1) 08/07/18 05:41 Chloride 108 mmol/L (98-107) H 08/07/18 05:41 Carbon Dioxide 28 mmol/L (21-32) 08/07/18 05:41 BUN 20 mg/dL (7-18) H 08/07/18 05:41 Creatinine 1.15 mg/dL (0.55-1.3) 08/07/18 05:41 Estimated GFR 65 mL/min (=/>90) L 08/07/18 05:41 Glucose 109 mg/dL (74-106) H 08/07/18 05:41 Calcium 8.5 mg/dL (8.5-10.1) 08/07/18 05:41 Magnesium 2.4 mg/dL (1.8-2.4) 08/07/18 05:41 Albumin 3.8 g/dL (3.4-5.0) 08/07/18 05:41 Prealbumin 36.2 mg/dL (20-40) 08/07/18 05:41 Urine Color Yellow 08/06/18 18:30 Urine Appearance Clear 08/06/18 18:30 Urine pH 6.5 (5.0-7.0) 08/06/18 18:30 Ur Specific [place] 1.015 (1.005-1.030) 08/06/18 18:30 Urine Ketones Negative (NEG) 08/06/18 18:30 Urine Blood Negative (NEG) 08/06/18 18:30 Urine Nitrite Negative (NEG) 08/06/18 18:30 Urine Bilirubin Negative (NEG) 08/06/18 18:30 Urine Urobilinogen 1.0 mg/dL (0.2-1.0) 08/06/18 18:30 Ur Leukocyte Esterase Negative (NEG) 08/06/18 18:30 Urine RBC None seen /HPF (NONE SEEN) 08/06/18 18:30 Urine WBC None seen /HPF (<5) 08/06/18 18:30 Ur Squamous Epith Cells <5 /HPF (NONE SEEN) 08/06/18 18:30 Urine Bacteria None seen /HPF (NONE SEEN) 08/06/18 18:30 Urine Culture Reflexed Not needed 08/06/18 18:30 Urine Glucose Negative (NEG) 08/06/18 18:30 Urine Total Protein Negative (NEG) 08/06/18 18:30 Weight: 213 lb Wound Present: No Closed Surgical Incision Present: No Negative Pressure Wound Therapy Present: No Physician Update: Labs reviewed and are essentially normal. He is doing well with contact guard without an assistive device. He is doing well with occupational therapy. 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 Please see the Rehabilitation Signature page for all necessary signatures.
--- NOTE | 2018-08-07 12:03 | FAST ---
ENCOUNTER DATE AND TIME: 08/07/2018 08:00 (CDT) NAME DIEGO SINCLAIR DATE OF : 1960 DATE OF ADMISSION: 08/06/2018 15:32 (CDT) PHONE: AGE: 57 SSN# [id number] GENDER: Male ENCOUNTER PHYSICIAN: Dr. Jin Delvalle M.D. ADMISSION DIAGNOSIS: - Neurologic Conditions 03 - Multiple Sclerosis (03.1) Multiple Sclerosis. EATING: Activity did not occur on this shift EATING - SCORE: 0-UNK GROOMING: Comb/brush hair Wash, rinse, and dry face Wash, rinse, and dry hands GROOMING - STEP 1: Does the patient require the assistance of a person or device, or need extra time when grooming? Yes. GROOMING - STEP 2: Does the patient require the assistance of a helper? Yes. GROOMING - STEP 3: How much assistance does the patient require from the helper? Only prior equipment preparation/set up from the helper GROOMING - SCORE: 5-SUP BATHING: Abdomen Buttocks Chest Left arm Left lower leg and foot Left upper leg Perineal area Right arm Right lower leg and foot Right upper leg BATHING - STEP 1: Does the patient require the assistance of a person or device, or need extra time when bathing? Yes. BATHING - STEP 2: Does the patient require the assistance of a helper? Yes. BATHING - STEP 3: How much assistance does the patient require from the helper? Only incidental help such as placement of a wash cloth in his/her hand a few times as s/he bathes OR help to bathe just one or two areas of the body BATHING - SCORE: 4-MIN DRESSING - UPPER BODY: T-shirt/pullover shirt (four steps) ARTICLES SCORE Total number of steps: 4 DRESSING - UPPER BODY - STEP 1: Does the patient require help from a person or device, or need extra time when dressing above the [address]? Yes. DRESSING - UPPER BODY - STEP 2: Does the patient require the assistance of a helper? Yes. DRESSING - UPPER BODY - STEP 3: Does the helper touch the patient while dressing? No. DRESSING - UPPER BODY - SCORE: 5-SUP DRESSING - LOWER BODY: Sock - Left foot (one step) Sock - Right foot (one step) Underwear (three steps) Zippered pants (four steps) ARTICLES SCORE Total number of steps: 9 DRESSING - LOWER BODY - STEP 1: Does the patient require help from a person or device, or need extra time when dressing below the [address]? Yes. DRESSING - LOWER BODY - STEP 2: Does the patient require the assistance of a helper? Yes. DRESSING - LOWER BODY - STEP 3: Does the helper touch the patient while dressing? Yes. DRESSING - LOWER BODY - STEP 4: How many of the total steps does the patient complete on his/her own? 9 DRESSING - LOWER BODY - SCORE: 4-MIN TOILETING: Activity did not occur on this shift TOILETING - SCORE: 0-UNK BLADDER MANAGEMENT: Activity did not occur on this shift BLADDER MANAGEMENT - SCORE: 7-IND BOWEL MANAGEMENT: Activity did not occur on this shift BOWEL MANAGEMENT - SCORE: 7-IND TRANSFERS: BED, CHAIR, WHEELCHAIR: TRANSFERS: BED, CHAIR, WHEELCHAIR - STEP 1: Does the patient require assistance of a person or device, or need extra time with bed, chair, or whe elchair transfers? Yes. TRANSFERS: BED, CHAIR, WHEELCHAIR - STEP 2: Does the patient require the assistance of a helper? Yes. TRANSFERS: BED, CHAIR, WHEELCHAIR - STEP 3: How much assistance does the patient require from the helper? Steadying/guiding assistance TRANSFERS: BED, CHAIR, WHEELCHAIR - SCORE: 4-MIN TRANSFERS: TOILET: Activity did not occur on this shift TRANSFERS: TOILET - SCORE: 0-UNK TRANSFERS: SHOWER: TRANSFERS: SHOWER - STEP 1: Does the patient require the assistance of a person or device, or need extra time with shower transfe rs? Yes. TRANSFERS: SHOWER - STEP 2: Does the patient require the assistance of a helper? Yes. TRANSFERS: SHOWER - STEP 3: How much assistance does the patient require from the helper? Only incidental help such as contact gu arding or steadying during shower transfers, or help to lift one leg into the shower TRANSFERS: SHOWER - SCORE: 4-MIN TRANSFERS: TUB: Activity did not occur on this shift TRANSFERS: TUB - SCORE: 0-UNK LOCOMOTION: WALK: Activity did not occur on this shift LOCOMOTION: WALK - SCORE: 0-UNK LOCOMOTION: WHEELCHAIR: Activity did not occur on this shift LOCOMOTION: WHEELCHAIR - SCORE: 0-UNK LOCOMOTION: STAIRS: Activity did not occur on this shift LOCOMOTION: STAIRS - SCORE: 0-UNK COMPREHENSION: COMPREHENSION: TYPE: Both COMPREHENSION - STEP 1: Does the patient require help from a person or device, or need extra time to understand complex and a bstract ideas (such as current events, finances, discharge planning, medical issues, relationships, e tc)? Yes. COMPREHENSION - STEP 2: Does the patient require help to understand questions or statements about basic needs or ideas (such as hunger, thirst, sleep, safety, daily schedule, room location, or discomfort) half or more of the t josé luis? No. COMPREHENSION - STEP 3: How often does the patient need help to understand directions and conversation about basic needs? Les s than 10% of the time COMPREHENSION - SCORE: 5-SUP EXPRESSION EXPRESSION: TYPE: Both EXPRESSION - STEP 1: Does the patient require help from a person or device, or need extra time expressing complex and abst ract ideas (such as current events, finances, discharge planning, medical issues, relationships, etc) ? No. EXPRESSION - STEP 2: Does the patient need extra time, require an assistive device (such as augmentive communication syste m or a communication board), OR does s/he have mild difficulty expressing complex and abstract ideas (including mild dysarthria or mild word-find problems)? Yes. EXPRESSION - SCORE: 6-NADIA SOCIAL INTERACTION: SOCIAL INTERACTION - STEP 1: Does the patient require a helper to interact with others in social and therapeutic situations? No. SOCIAL INTERACTION - STEP 2: Does the patient need extra time in social situations, OR does s/he interact with staff, other patien ts, and family members ONLY in structured environments, OR does s/he require medication for social in teraction? No. SOCIAL INTERACTION - SCORE: 7-IND PROBLEM SOLVING: PROBLEM SOLVING - STEP 1: Does the patient need help from a person or device, or need extra time to solve complex problems such as managing a checking account or confronting interpersonal problems? Yes. PROBLEM SOLVING - STEP 2: Does the patient solve basic routine problems half or more of the time? Yes. PROBLEM SOLVING - STEP 3: How often does the patient need help to solve basic routine problems? Less than 10% of the time PROBLEM SOLVING - SCORE: 5-SUP MEMORY: MEMORY - STEP 1: Does the patient need help from a person or device, or need extra time to remember frequently encount ered people, daily routines, and executing requests? Yes. MEMORY - STEP 2: How often does the patient need help to remember frequently encountered people, daily routines, and e xecuting requests? Less than 10% of the time MEMORY - SCORE: 5-SUP SIGNATURE PANEL: The following modified sections: Eating - Score, Grooming - Score, Bathing - Score, Dressing - Upper Body - Score, Dressing - Lower Body - Score, Toileting - Score, Transfers: Bed, Chair, Wheelchair - S core, Transfers: Toilet - Score, Transfers: Shower - Score, Transfers: Tub - Score, Comprehension - S core, Expression - Score, Social Interaction - Score, Problem Solving - Score, Memory - Score were [e lectronically] signed by Rufina Cadena OT on SatAug 07 2018 12:02:26 T-0500 (Mobile Da ylight Time)
[2018-08-07] MEDS ORDERED: BISACODYL 10 MG RECTAL SUPP PR PRN (13:03)
[2018-08-07] MEDS: DOCUSATE NA/SENNA CONC 1 TAB PO SCH (20:27)
[2018-08-07] MEDS: ATORVASTATIN 40 MG TAB PO SCH (20:27)
--- NOTE | 2018-08-08 02:04 | FAST ---
SHIFT START DATE/TIME: 08/07/2018 19:00 (CDT) SHIFT END DATE/TIME: 08/08/2018 07:00 (CDT) NAME DIEGO SINCLAIR DATE OF : 1960 DATE OF ADMISSION: 08/06/2018 15:32 (CDT) PHONE: AGE: 57 N# [id number] GENDER: Male ENCOUNTER PHYSICIAN: Dr. Jin Delvalle M.D. ADMISSION DIAGNOSIS: - Neurologic Conditions 03 - Multiple Sclerosis (03.1) Multiple Sclerosis. EATING: Activity did not occur on this shift EATING - SCORE: 0-UNK GROOMING: Oral care Wash, rinse, and dry face Wash, rinse, and dry hands GROOMING - STEP 1: Does the patient require the assistance of a person or device, or need extra time when grooming? Yes. GROOMING - STEP 2: Does the patient require the assistance of a helper? Yes. GROOMING - STEP 3: How much assistance does the patient require from the helper? Cuing, coaxing, instructions, or encour agement for completion of grooming GROOMING - SCORE: 5-SUP BATHING: Activity did not occur on this shift BATHING - SCORE: 0-UNK DRESSING - UPPER BODY: Patient is not dressing in public clothing ARTICLES SCORE Total number of steps: 0 DRESSING - UPPER BODY - SCORE: 0-UNK DRESSING - LOWER BODY: Patient is not dressing in public clothing ARTICLES SCORE Total number of steps: 0 DRESSING - LOWER BODY - SCORE: 0-UNK TOILETING: TOILETING - STEP 1: Does the patient require the assistance of a person or device, or need extra time with toileting? Yes . TOILETING - STEP 2: Does the patient require the assistance of a helper? Yes. TOILETING - STEP 3: How much assistance does the patient require from the helper? Hands-on assistance from the helper TOILETING - STEP 4: Of the 3 tasks: 1) Adjusting clothing prior to use, 2) Cleansing of perineal area, 3) Adjusting clot deidre after use; How many tasks does the patient perform WITHOUT assistance of the helper? Three tasks with steadying assistance from the helper TOILETING - SCORE: 4-MIN BLADDER MANAGEMENT: BLADDER MANAGEMENT - STEP 1: Does the patient control the bladder completely and intentionally without equipment or devices or med ications, and is always continent? No. BLADDER MANAGEMENT - STEP 2: Does the patient require the assistance of a helper? Yes. BLADDER MANAGEMENT - STEP 3: How much assistance does the patient require from the helper? Only set-up of equipment - such as plac ing it within reach of the patient or emptying a device - to maintain either satisfactory voiding pat tern or managing an external device, such as an absorbent pad, ileal device, or catheter BLADDER MANAGEMENT - SCORE: 5-SUP BOWEL MANAGEMENT: Activity did not occur on this shift BOWEL MANAGEMENT - SCORE: 7-IND TRANSFERS: BED, CHAIR, WHEELCHAIR: TRANSFERS: BED, CHAIR, WHEELCHAIR - STEP 1: Does the patient require assistance of a person or device, or need extra time with bed, chair, or whe elchair transfers? Yes. TRANSFERS: BED, CHAIR, WHEELCHAIR - STEP 2: Does the patient require the assistance of a helper? Yes. TRANSFERS: BED, CHAIR, WHEELCHAIR - STEP 3: How much assistance does the patient require from the helper? Steadying/guiding assistance TRANSFERS: BED, CHAIR, WHEELCHAIR - SCORE: 4-MIN TRANSFERS: TOILET: TRANSFERS: TOILET - STEP 1: Does the patient require the assistance of a person or device, or need extra time with toilet transfe rs? Yes. TRANSFERS: TOILET - STEP 2: Does the patient require the assistance of a helper? Yes. TRANSFERS: TOILET - STEP 3: How much assistance does the patient require from the helper? Only supervision, cuing, coaxing, OR he lp to set out transfer equipment or to lock brakes and/or lift foot rests TRANSFERS: TOILET - SCORE: 5-SUP TRANSFERS: SHOWER: Activity did not occur on this shift TRANSFERS: SHOWER - SCORE: 0-UNK TRANSFERS: TUB: Activity did not occur on this shift TRANSFERS: TUB - SCORE: 0-UNK LOCOMOTION: WALK: Activity did not occur on this shift LOCOMOTION: WALK - SCORE: 0-UNK LOCOMOTION: WHEELCHAIR: Activity did not occur on this shift LOCOMOTION: WHEELCHAIR - SCORE: 0-UNK COMPREHENSION: COMPREHENSION: TYPE: Both COMPREHENSION - STEP 1: Does the patient require help from a person or device, or need extra time to understand complex and a bstract ideas (such as current events, finances, discharge planning, medical issues, relationships, e tc)? No. COMPREHENSION - STEP 2: Does the patient need extra time, require an assistive device (such as glasses for visual comprehensi on or a hearing aid for auditory comprehension) or does s/he have mild difficulty understanding compl ex and abstract information? Yes. COMPREHENSION - SCORE: 6-NADIA EXPRESSION EXPRESSION: TYPE: Both EXPRESSION - STEP 1: Does the patient require help from a person or device, or need extra time expressing complex and abst ract ideas (such as current events, finances, discharge planning, medical issues, relationships, etc) ? No. EXPRESSION - STEP 2: Does the patient need extra time, require an assistive device (such as augmentive communication syste m or a communication board), OR does s/he have mild difficulty expressing complex and abstract ideas (including mild dysarthria or mild word-find problems)? Yes. EXPRESSION - SCORE: 6-NADIA SOCIAL INTERACTION: SOCIAL INTERACTION - STEP 1: Does the patient require a helper to interact with others in social and therapeutic situations? No. SOCIAL INTERACTION - STEP 2: Does the patient need extra time in social situations, OR does s/he interact with staff, other patien ts, and family members ONLY in structured environments, OR does s/he require medication for social in teraction? Yes, patient requires medication for social interaction SOCIAL INTERACTION - SCORE: 6-NADIA PROBLEM SOLVING: PROBLEM SOLVING - STEP 1: Does the patient need help from a person or device, or need extra time to solve complex problems such as managing a checking account or confronting interpersonal problems? No. PROBLEM SOLVING - STEP 2: Does the patient require extra time to make decisions or solve problems, OR does s/he have slight dif ficulty reading, initiating, or self-correcting in unfamiliar situations? Yes, patient needs extra ti me. PROBLEM SOLVING - SCORE: 6-NADIA MEMORY: MEMORY - STEP 1: Does the patient need help from a person or device, or need extra time to remember frequently encount ered people, daily routines, and executing requests? No. MEMORY - STEP 2: Does the patient have slight difficulty recognizing frequently encountered people, daily routines, or executing requests without the need for repetition or using self-initiated or environmental cues to remember? Yes. MEMORY - SCORE: 6-NADIA
[2018-08-08] MEDS: METOPROLOL TAR 25 MG TAB PO SCH ×2 (05:11→16:52)
[2018-08-08] MEDS: GLATIRAMER ACETATE 20 MG SQ SCH ×2 (08:00)
[2018-08-08] MEDS: BUPROPION HCL XL 150 MG TAB PO SCH (08:27)
[2018-08-08] MEDS: AMANTADINE 100 MG CAP PO SCH (08:27)
[2018-08-08] MEDS: POLYETHYL GLY 3350 17 GM/DOSE PO SCH (08:27)
[2018-08-08] MEDS: FOLIC ACID 1 MG TABLET PO SCH (08:27)
[2018-08-08] MEDS: ASPIRIN EC 81 MG TAB PO SCH (08:27)
[2018-08-08] MEDS: APIXABAN 2.5 MG TABLET PO SCH ×2 (08:28→19:58)
[2018-08-08] MEDS: TAMSULOSIN 0.4 MG SR CAP PO SCH (08:28)
--- NOTE | 2018-08-08 11:18 | FAST ---
ENCOUNTER DATE AND TIME: 08/08/2018 08:00 (CDT) NAME DIEGO SINCLAIR DATE OF : 1960 DATE OF ADMISSION: 08/06/2018 15:32 (CDT) PHONE: AGE: 57 SSN# [id number] GENDER: Male ENCOUNTER PHYSICIAN: Dr. Jin Delvalle M.D. ADMISSION DIAGNOSIS: - Neurologic Conditions 03 - Multiple Sclerosis (03.1) Multiple Sclerosis. EATING: Activity did not occur on this shift EATING - SCORE: 0-UNK GROOMING: Activity did not occur on this shift GROOMING - SCORE: 0-UNK BATHING: Activity did not occur on this shift BATHING - SCORE: 0-UNK DRESSING - UPPER BODY: Activity did not occur on this shift Patient is not dressing in public clothing ARTICLES SCORE Total number of steps: 0 DRESSING - UPPER BODY - SCORE: 0-UNK DRESSING - LOWER BODY: Activity did not occur on this shift Patient is not dressing in public clothing ARTICLES SCORE Total number of steps: 0 DRESSING - LOWER BODY - SCORE: 0-UNK TOILETING: Activity did not occur on this shift TOILETING - SCORE: 0-UNK BLADDER MANAGEMENT: Activity did not occur on this shift BLADDER MANAGEMENT - SCORE: 7-IND BOWEL MANAGEMENT: Activity did not occur on this shift BOWEL MANAGEMENT - SCORE: 7-IND TRANSFERS: BED, CHAIR, WHEELCHAIR: TRANSFERS: BED, CHAIR, WHEELCHAIR - STEP 1: Does the patient require assistance of a person or device, or need extra time with bed, chair, or whe elchair transfers? Yes. TRANSFERS: BED, CHAIR, WHEELCHAIR - STEP 2: Does the patient require the assistance of a helper? Yes. TRANSFERS: BED, CHAIR, WHEELCHAIR - STEP 3: How much assistance does the patient require from the helper? Only supervision TRANSFERS: BED, CHAIR, WHEELCHAIR - SCORE: 5-SUP TRANSFERS: TOILET: Activity did not occur on this shift TRANSFERS: TOILET - SCORE: 0-UNK TRANSFERS: SHOWER: Activity did not occur on this shift TRANSFERS: SHOWER - SCORE: 0-UNK TRANSFERS: TUB: Activity did not occur on this shift TRANSFERS: TUB - SCORE: 0-UNK LOCOMOTION: WALK: LOCOMOTION: WALK - STEP 1: Does the patient need help from a person or device, or need extra time to walk 150 feet? Yes. LOCOMOTION: WALK - STEP 2: How much assistance does the patient require to walk a minimum of 150 feet? Only supervision, cuing, or coaxing LOCOMOTION: WALK - SCORE: 5-SUP LOCOMOTION: WHEELCHAIR: Activity did not occur on this shift LOCOMOTION: WHEELCHAIR - SCORE: 0-UNK LOCOMOTION: STAIRS: Activity did not occur on this shift LOCOMOTION: STAIRS - SCORE: 0-UNK COMPREHENSION: COMPREHENSION - SCORE: 0-UNK EXPRESSION EXPRESSION - SCORE: 0-UNK SOCIAL INTERACTION: SOCIAL INTERACTION - SCORE: 0-UNK PROBLEM SOLVING: PROBLEM SOLVING - SCORE: 0-UNK MEMORY: MEMORY - SCORE: 0-UNK SIGNATURE PANEL: The following modified sections: Transfers: Bed, Chair, Wheelchair - Score, Transfers: Toilet - Score , Locomotion: Walk - Score, Locomotion: Wheelchair - Score, Locomotion: Stairs - Score were [electron sheba] signed by Curtis Brody PT on SatAug 08 2018 11:18:07 T-0500 (Central Daylight Time)
--- NOTE | 2018-08-08 11:20 | FAST ---
ENCOUNTER DATE AND TIME: 08/07/2018 08:00 (CDT) NAME DIEGO SINCLAIR DATE OF : 1960 DATE OF ADMISSION: 08/06/2018 15:32 (CDT) PHONE: AGE: 57 SSN# [id number] GENDER: Male ENCOUNTER PHYSICIAN: Dr. Jin Delvalle M.D. ADMISSION DIAGNOSIS: - Neurologic Conditions 03 - Multiple Sclerosis (03.1) Multiple Sclerosis. EATING: Activity did not occur on this shift EATING - SCORE: 0-UNK GROOMING: Activity did not occur on this shift GROOMING - SCORE: 0-UNK BATHING: Activity did not occur on this shift BATHING - SCORE: 0-UNK DRESSING - UPPER BODY: Activity did not occur on this shift Patient is not dressing in public clothing ARTICLES SCORE Total number of steps: 0 DRESSING - UPPER BODY - SCORE: 0-UNK DRESSING - LOWER BODY: Activity did not occur on this shift Patient is not dressing in public clothing ARTICLES SCORE Total number of steps: 0 DRESSING - LOWER BODY - SCORE: 0-UNK TOILETING: Activity did not occur on this shift TOILETING - SCORE: 0-UNK BLADDER MANAGEMENT: Activity did not occur on this shift BLADDER MANAGEMENT - SCORE: 7-IND BOWEL MANAGEMENT: Activity did not occur on this shift BOWEL MANAGEMENT - SCORE: 7-IND TRANSFERS: BED, CHAIR, WHEELCHAIR: TRANSFERS: BED, CHAIR, WHEELCHAIR - STEP 1: Does the patient require assistance of a person or device, or need extra time with bed, chair, or whe elchair transfers? Yes. TRANSFERS: BED, CHAIR, WHEELCHAIR - STEP 2: Does the patient require the assistance of a helper? Yes. TRANSFERS: BED, CHAIR, WHEELCHAIR - STEP 3: How much assistance does the patient require from the helper? Only supervision TRANSFERS: BED, CHAIR, WHEELCHAIR - SCORE: 5-SUP TRANSFERS: TOILET: Activity did not occur on this shift TRANSFERS: TOILET - SCORE: 0-UNK TRANSFERS: SHOWER: Activity did not occur on this shift TRANSFERS: SHOWER - SCORE: 0-UNK TRANSFERS: TUB: Activity did not occur on this shift TRANSFERS: TUB - SCORE: 0-UNK LOCOMOTION: WALK: LOCOMOTION: WALK - STEP 1: Does the patient need help from a person or device, or need extra time to walk 150 feet? Yes. LOCOMOTION: WALK - STEP 2: How much assistance does the patient require to walk a minimum of 150 feet? Only supervision, cuing, or coaxing LOCOMOTION: WALK - SCORE: 5-SUP LOCOMOTION: WHEELCHAIR: Activity did not occur on this shift LOCOMOTION: WHEELCHAIR - SCORE: 0-UNK LOCOMOTION: STAIRS: LOCOMOTION: STAIRS - STEP 1: Does the patient need help to go up and down 12 to 14 stairs? Yes. LOCOMOTION: STAIRS - STEP 2: How much assistance does the patient need from the helper to go a minimum of 12 to 14 stairs? Only in cidental help such as contact guarding or steadying LOCOMOTION: STAIRS - SCORE: 4-MIN COMPREHENSION: COMPREHENSION - SCORE: 0-UNK EXPRESSION EXPRESSION - SCORE: 0-UNK SOCIAL INTERACTION: SOCIAL INTERACTION - SCORE: 0-UNK PROBLEM SOLVING: PROBLEM SOLVING - SCORE: 0-UNK MEMORY: MEMORY - SCORE: 0-UNK SIGNATURE PANEL: The following modified sections: Transfers: Bed, Chair, Wheelchair - Score, Transfers: Toilet - Score , Locomotion: Walk - Score, Locomotion: Wheelchair - Score, Locomotion: Stairs - Score were [electron sheba] signed by Curtis Brody PT on SatAug 08 2018 11:20:19 GMT-0500 (Central Daylight Time)
--- NOTE | 2018-08-08 14:34 | FAST ---
ENCOUNTER DATE AND TIME: 08/08/2018 08:00 (CDT) NAME DIEGO SINCLAIR DATE OF : 1960 DATE OF ADMISSION: 08/06/2018 15:32 (CDT) PHONE: AGE: 57 N# [id number] GENDER: Male ENCOUNTER PHYSICIAN: Dr. Jin Delvalle M.D. ADMISSION DIAGNOSIS: - Neurologic Conditions 03 - Multiple Sclerosis (03.1) Multiple Sclerosis. EATING: Activity did not occur on this shift EATING - SCORE: 0-UNK GROOMING: Comb/brush hair Oral care Wash, rinse, and dry face Wash, rinse, and dry hands GROOMING - STEP 1: Does the patient require the assistance of a person or device, or need extra time when grooming? Yes. GROOMING - STEP 2: Does the patient require the assistance of a helper? No. The patient only requires an assistive devic e, OR takes more than reasonable time to groom, OR there is a concern for safety as the patient groom s GROOMING - SCORE: 6-NADIA BATHING: Activity did not occur on this shift BATHING - SCORE: 0-UNK DRESSING - UPPER BODY: Activity did not occur on this shift ARTICLES SCORE Total number of steps: 0 DRESSING - UPPER BODY - SCORE: 0-UNK DRESSING - LOWER BODY: Activity did not occur on this shift ARTICLES SCORE Total number of steps: 0 DRESSING - LOWER BODY - SCORE: 0-UNK TOILETING: Activity did not occur on this shift TOILETING - SCORE: 0-UNK BLADDER MANAGEMENT: Activity did not occur on this shift BLADDER MANAGEMENT - SCORE: 7-IND BOWEL MANAGEMENT: Activity did not occur on this shift BOWEL MANAGEMENT - SCORE: 7-IND TRANSFERS: BED, CHAIR, WHEELCHAIR: TRANSFERS: BED, CHAIR, WHEELCHAIR - STEP 1: Does the patient require assistance of a person or device, or need extra time with bed, chair, or whe elchair transfers? Yes. TRANSFERS: BED, CHAIR, WHEELCHAIR - STEP 2: Does the patient require the assistance of a helper? No. Patient only requires an assistive device fo r bed, chair, wheelchair transfers such as a sliding board, grab bar, or brace, OR s/he takes more th an reasonable time, OR there is a safety concern when s/he performs the transfers TRANSFERS: BED, CHAIR, WHEELCHAIR - SCORE: 6-NADIA TRANSFERS: TOILET: Activity did not occur on this shift TRANSFERS: TOILET - SCORE: 0-UNK TRANSFERS: SHOWER: Activity did not occur on this shift TRANSFERS: SHOWER - SCORE: 0-UNK TRANSFERS: TUB: Activity did not occur on this shift TRANSFERS: TUB - SCORE: 0-UNK LOCOMOTION: WALK: Activity did not occur on this shift LOCOMOTION: WALK - SCORE: 0-UNK LOCOMOTION: WHEELCHAIR: Activity did not occur on this shift LOCOMOTION: WHEELCHAIR - SCORE: 0-UNK LOCOMOTION: STAIRS: Activity did not occur on this shift LOCOMOTION: STAIRS - SCORE: 0-UNK COMPREHENSION: COMPREHENSION: TYPE: Both COMPREHENSION - STEP 1: Does the patient require help from a person or device, or need extra time to understand complex and a bstract ideas (such as current events, finances, discharge planning, medical issues, relationships, e tc)? Yes. COMPREHENSION - STEP 2: Does the patient require help to understand questions or statements about basic needs or ideas (such as hunger, thirst, sleep, safety, daily schedule, room location, or discomfort) half or more of the t josé luis? No. COMPREHENSION - STEP 3: How often does the patient need help to understand directions and conversation about basic needs? Les s than 10% of the time COMPREHENSION - SCORE: 5-SUP EXPRESSION EXPRESSION: TYPE: Both EXPRESSION - STEP 1: Does the patient require help from a person or device, or need extra time expressing complex and abst ract ideas (such as current events, finances, discharge planning, medical issues, relationships, etc) ? Yes. EXPRESSION - STEP 2: Does the patient require help to express basic necessities or ideas (such as hunger, thirst, sleep, s afety, daily schedule, room location, or discomfort) half or more of the time? No. EXPRESSION - STEP 3: How often does the patient need help to express directions and conversation about basic needs? Less t thomas 10% of the time EXPRESSION - SCORE: 5-SUP SOCIAL INTERACTION: SOCIAL INTERACTION - STEP 1: Does the patient require a helper to interact with others in social and therapeutic situations? No. SOCIAL INTERACTION - STEP 2: Does the patient need extra time in social situations, OR does s/he interact with staff, other patien ts, and family members ONLY in structured environments, OR does s/he require medication for social in teraction? Yes, patient needs extra time SOCIAL INTERACTION - SCORE: 6-NADIA PROBLEM SOLVING: PROBLEM SOLVING - STEP 1: Does the patient need help from a person or device, or need extra time to solve complex problems such as managing a checking account or confronting interpersonal problems? Yes. PROBLEM SOLVING - STEP 2: Does the patient solve basic routine problems half or more of the time? Yes. PROBLEM SOLVING - STEP 3: How often does the patient need help to solve basic routine problems? 10%-24% of the time PROBLEM SOLVING - SCORE: 4-MIN MEMORY: MEMORY - STEP 1: Does the patient need help from a person or device, or need extra time to remember frequently encount ered people, daily routines, and executing requests? Yes. MEMORY - STEP 2: How often does the patient need help to remember frequently encountered people, daily routines, and e xecuting requests? Less than 10% of the time MEMORY - SCORE: 5-SUP SIGNATURE PANEL: The following modified sections: Eating - Score, Grooming - Score, Bathing - Score, Dressing - Upper Body - Score, Dressing - Lower Body - Score, Toileting - Score, Transfers: Bed, Chair, Wheelchair - S core, Transfers: Toilet - Score, Transfers: Shower - Score, Transfers: Tub - Score, Comprehension - S core, Expression - Score, Social Interaction - Score, Problem Solving - Score, Memory - Score were [e lectronically] signed by Rufina Cadena OT on SatAug 08 2018 14:33:46 T-0500 ([place] [facility] [place] Time)
[2018-08-08] MEDS: ATORVASTATIN 40 MG TAB PO SCH (23:24)
[2018-08-08] MEDS: DOCUSATE NA/SENNA CONC 1 TAB PO SCH (23:24)
[2018-08-08] MEDS: MELATONIN 3 MG TABLET PO PRN (23:24)
[2018-08-09] MEDS: METOPROLOL TAR 25 MG TAB PO SCH ×2 (05:05→16:39)
[2018-08-09] MEDS: GLATIRAMER ACETATE 20 MG SQ SCH (08:00)
[2018-08-09] MEDS: POLYETHYL GLY 3350 17 GM/DOSE PO SCH (08:26)
[2018-08-09] MEDS: BUPROPION HCL XL 150 MG TAB PO SCH (08:27)
[2018-08-09] MEDS: FOLIC ACID 1 MG TABLET PO SCH (08:27)
[2018-08-09] MEDS: APIXABAN 2.5 MG TABLET PO SCH ×2 (08:27→20:08)
[2018-08-09] MEDS: ASPIRIN EC 81 MG TAB PO SCH (08:28)
[2018-08-09] MEDS: TAMSULOSIN 0.4 MG SR CAP PO SCH (08:28)
[2018-08-09] MEDS: AMANTADINE 100 MG CAP PO SCH (08:28)
--- NOTE | 2018-08-09 16:15 | FAST ---
ENCOUNTER DATE AND TIME: 08/09/2018 08:00 (CDT) NAME DIEGO SINCLAIR DATE OF : 1960 DATE OF ADMISSION: 08/06/2018 15:32 (CDT) PHONE: AGE: 57 N# [id number] GENDER: Male ENCOUNTER PHYSICIAN: Dr. Jin Delvalle M.D. ADMISSION DIAGNOSIS: - Neurologic Conditions 03 - Multiple Sclerosis (03.1) Multiple Sclerosis. EATING: EATING - STEP 1: Does the patient require the assistance of a person or device, or need extra time when eating? No. EATING - SCORE: 7-IND GROOMING: Comb/brush hair Oral care Patient shaved Wash, rinse, and dry face Wash, rinse, and dry hands GROOMING - STEP 1: Does the patient require the assistance of a person or device, or need extra time when grooming? No. GROOMING - SCORE: 7-IND BATHING: Abdomen Buttocks Chest Left arm Left lower leg and foot Left upper leg Perineal area Right arm Right lower leg and foot Right upper leg BATHING - STEP 1: Does the patient require the assistance of a person or device, or need extra time when bathing? Yes. BATHING - STEP 2: Does the patient require the assistance of a helper? Yes. BATHING - STEP 3: How much assistance does the patient require from the helper? Only supervision, cuing, coaxing, instr uctions, encouragement BATHING - SCORE: 5-SUP DRESSING - UPPER BODY: T-shirt/pullover shirt (four steps) ARTICLES SCORE Total number of steps: 4 DRESSING - UPPER BODY - STEP 1: Does the patient require help from a person or device, or need extra time when dressing above the [address]? No. DRESSING - UPPER BODY - SCORE: 7-IND DRESSING - LOWER BODY: Elastic waist pants (three steps) Sock - Left foot (one step) Sock - Right foot (one step) Tied or buckled shoe - Left foot (two steps) Tied or buckled shoe - Right foot (two steps) Underwear (three steps) ARTICLES SCORE Total number of steps: 12 DRESSING - LOWER BODY - STEP 1: Does the patient require help from a person or device, or need extra time when dressing below the [address]? Yes. DRESSING - LOWER BODY - STEP 2: Does the patient require the assistance of a helper? Yes. DRESSING - LOWER BODY - STEP 3: Does the helper touch the patient while dressing? No. DRESSING - LOWER BODY - SCORE: 5-SUP TOILETING: Activity did not occur on this shift TOILETING - SCORE: 0-UNK BLADDER MANAGEMENT: Activity did not occur on this shift BLADDER MANAGEMENT - SCORE: 7-IND BOWEL MANAGEMENT: Activity did not occur on this shift BOWEL MANAGEMENT - SCORE: 7-IND TRANSFERS: BED, CHAIR, WHEELCHAIR: Activity did not occur on this shift TRANSFERS: BED, CHAIR, WHEELCHAIR - SCORE: 0-UNK TRANSFERS: TOILET: Activity did not occur on this shift TRANSFERS: TOILET - SCORE: 0-UNK TRANSFERS: SHOWER: TRANSFERS: SHOWER - STEP 1: Does the patient require the assistance of a person or device, or need extra time with shower transfe rs? Yes. TRANSFERS: SHOWER - STEP 2: Does the patient require the assistance of a helper? Yes. TRANSFERS: SHOWER - STEP 3: How much assistance does the patient require from the helper? Only supervision, cuing, coaxing, or he lp to set out transfer equipment or to lock brakes and/or lift foot rests TRANSFERS: SHOWER - SCORE: 5-SUP TRANSFERS: TUB: Activity did not occur on this shift TRANSFERS: TUB - SCORE: 0-UNK LOCOMOTION: WALK: Activity did not occur on this shift LOCOMOTION: WALK - SCORE: 0-UNK LOCOMOTION: WHEELCHAIR: Activity did not occur on this shift LOCOMOTION: WHEELCHAIR - SCORE: 0-UNK LOCOMOTION: STAIRS: Activity did not occur on this shift LOCOMOTION: STAIRS - SCORE: 0-UNK COMPREHENSION: COMPREHENSION: TYPE: Both COMPREHENSION - STEP 1: Does the patient require help from a person or device, or need extra time to understand complex and a bstract ideas (such as current events, finances, discharge planning, medical issues, relationships, e tc)? No. COMPREHENSION - STEP 2: Does the patient need extra time, require an assistive device (such as glasses for visual comprehensi on or a hearing aid for auditory comprehension) or does s/he have mild difficulty understanding compl ex and abstract information? No. COMPREHENSION - SCORE: 7-IND EXPRESSION EXPRESSION: TYPE: Both EXPRESSION - STEP 1: Does the patient require help from a person or device, or need extra time expressing complex and abst ract ideas (such as current events, finances, discharge planning, medical issues, relationships, etc) ? No. EXPRESSION - STEP 2: Does the patient need extra time, require an assistive device (such as augmentive communication syste m or a communication board), OR does s/he have mild difficulty expressing complex and abstract ideas (including mild dysarthria or mild word-find problems)? No. EXPRESSION - SCORE: 7-IND SOCIAL INTERACTION: SOCIAL INTERACTION - STEP 1: Does the patient require a helper to interact with others in social and therapeutic situations? No. SOCIAL INTERACTION - STEP 2: Does the patient need extra time in social situations, OR does s/he interact with staff, other patien ts, and family members ONLY in structured environments, OR does s/he require medication for social in teraction? No. SOCIAL INTERACTION - SCORE: 7-IND PROBLEM SOLVING: PROBLEM SOLVING - STEP 1: Does the patient need help from a person or device, or need extra time to solve complex problems such as managing a checking account or confronting interpersonal problems? No. PROBLEM SOLVING - STEP 2: Does the patient require extra time to make decisions or solve problems, OR does s/he have slight dif ficulty reading, initiating, or self-correcting in unfamiliar situations? No. PROBLEM SOLVING - SCORE: 7-IND MEMORY: MEMORY - STEP 1: Does the patient need help from a person or device, or need extra time to remember frequently encount ered people, daily routines, and executing requests? No. MEMORY - STEP 2: Does the patient have slight difficulty recognizing frequently encountered people, daily routines, or executing requests without the need for repetition or using self-initiated or environmental cues to remember? No. MEMORY - SCORE: 7-IND SIGNATURE PANEL: The following modified sections: Eating - Score, Grooming - Score, Bathing - Score, Dressing - Upper Body - Score, Dressing - Lower Body - Score, Toileting - Score, Transfers: Bed, Chair, Wheelchair - S core, Transfers: Toilet - Score, Transfers: Tub - Score, Transfers: Shower - Score, Comprehension - S core, Expression - Score, Social Interaction - Score, Problem Solving - Score, Memory - Score were [e lectronically] signed by Ann-Marie Hutchins OT on SatAug 09 2018 16:14:34 T-0500 ([facility] T jos[place] l[place])
[2018-08-09] MEDS: DOCUSATE NA/SENNA CONC 1 TAB PO SCH (20:08)
[2018-08-09] MEDS: ATORVASTATIN 40 MG TAB PO SCH (20:08)
[2018-08-09] MEDS: MELATONIN 3 MG TABLET PO PRN (22:46)
--- NOTE | 2018-08-10 00:50 | FAST ---
SHIFT START DATE/TIME: 08/09/2018 19:00 (CDT) SHIFT END DATE/TIME: 08/10/2018 07:00 (CDT) NAME DIEGO SINCLAIR DATE OF : 1960 DATE OF ADMISSION: 08/06/2018 15:32 (CDT) PHONE: AGE: 57 SSN# [id number] GENDER: Male ENCOUNTER PHYSICIAN: Dr. Jin Delvalle M.D. ADMISSION DIAGNOSIS: - Neurologic Conditions 03 - Multiple Sclerosis (03.1) Multiple Sclerosis. EATING: Activity did not occur on this shift EATING - SCORE: 0-UNK GROOMING: Activity did not occur on this shift GROOMING - SCORE: 0-UNK BATHING: Activity did not occur on this shift BATHING - SCORE: 0-UNK DRESSING - UPPER BODY: Activity did not occur on this shift ARTICLES SCORE Total number of steps: 0 DRESSING - UPPER BODY - SCORE: 0-UNK DRESSING - LOWER BODY: Activity did not occur on this shift ARTICLES SCORE Total number of steps: 0 DRESSING - LOWER BODY - SCORE: 0-UNK TOILETING: TOILETING - STEP 1: Does the patient require the assistance of a person or device, or need extra time with toileting? Yes . TOILETING - STEP 2: Does the patient require the assistance of a helper? Yes. TOILETING - STEP 3: How much assistance does the patient require from the helper? Only supervision TOILETING - SCORE: 5-SUP BLADDER MANAGEMENT: BLADDER MANAGEMENT - STEP 1: Does the patient control the bladder completely and intentionally without equipment or devices or med ications, and is always continent? Yes. BLADDER MANAGEMENT - SCORE: 7-IND BOWEL MANAGEMENT: Activity did not occur on this shift BOWEL MANAGEMENT - SCORE: 7-IND TRANSFERS: BED, CHAIR, WHEELCHAIR: TRANSFERS: BED, CHAIR, WHEELCHAIR - STEP 1: Does the patient require assistance of a person or device, or need extra time with bed, chair, or whe elchair transfers? Yes. TRANSFERS: BED, CHAIR, WHEELCHAIR - STEP 2: Does the patient require the assistance of a helper? Yes. TRANSFERS: BED, CHAIR, WHEELCHAIR - STEP 3: How much assistance does the patient require from the helper? Steadying/guiding assistance TRANSFERS: BED, CHAIR, WHEELCHAIR - SCORE: 4-MIN TRANSFERS: TOILET: TRANSFERS: TOILET - STEP 1: Does the patient require the assistance of a person or device, or need extra time with toilet transfe rs? Yes. TRANSFERS: TOILET - STEP 2: Does the patient require the assistance of a helper? Yes. TRANSFERS: TOILET - STEP 3: How much assistance does the patient require from the helper? Only supervision, cuing, coaxing, OR he lp to set out transfer equipment or to lock brakes and/or lift foot rests TRANSFERS: TOILET - SCORE: 5-SUP TRANSFERS: SHOWER: Activity did not occur on this shift TRANSFERS: SHOWER - SCORE: 0-UNK TRANSFERS: TUB: Activity did not occur on this shift TRANSFERS: TUB - SCORE: 0-UNK LOCOMOTION: WALK: Activity did not occur on this shift LOCOMOTION: WALK - SCORE: 0-UNK LOCOMOTION: WHEELCHAIR: Activity did not occur on this shift LOCOMOTION: WHEELCHAIR - SCORE: 0-UNK COMPREHENSION: COMPREHENSION: TYPE: Both COMPREHENSION - STEP 1: Does the patient require help from a person or device, or need extra time to understand complex and a bstract ideas (such as current events, finances, discharge planning, medical issues, relationships, e tc)? No. COMPREHENSION - STEP 2: Does the patient need extra time, require an assistive device (such as glasses for visual comprehensi on or a hearing aid for auditory comprehension) or does s/he have mild difficulty understanding compl ex and abstract information? Yes. COMPREHENSION - SCORE: 6-NADIA EXPRESSION EXPRESSION: TYPE: Both EXPRESSION - STEP 1: Does the patient require help from a person or device, or need extra time expressing complex and abst ract ideas (such as current events, finances, discharge planning, medical issues, relationships, etc) ? No. EXPRESSION - STEP 2: Does the patient need extra time, require an assistive device (such as augmentive communication syste m or a communication board), OR does s/he have mild difficulty expressing complex and abstract ideas (including mild dysarthria or mild word-find problems)? No. EXPRESSION - SCORE: 7-IND SOCIAL INTERACTION: SOCIAL INTERACTION - STEP 1: Does the patient require a helper to interact with others in social and therapeutic situations? No. SOCIAL INTERACTION - STEP 2: Does the patient need extra time in social situations, OR does s/he interact with staff, other patien ts, and family members ONLY in structured environments, OR does s/he require medication for social in teraction? No. SOCIAL INTERACTION - SCORE: 7-IND PROBLEM SOLVING: PROBLEM SOLVING - STEP 1: Does the patient need help from a person or device, or need extra time to solve complex problems such as managing a checking account or confronting interpersonal problems? No. PROBLEM SOLVING - STEP 2: Does the patient require extra time to make decisions or solve problems, OR does s/he have slight dif ficulty reading, initiating, or self-correcting in unfamiliar situations? No. PROBLEM SOLVING - SCORE: 7-IND MEMORY: MEMORY - STEP 1: Does the patient need help from a person or device, or need extra time to remember frequently encount ered people, daily routines, and executing requests? No. MEMORY - STEP 2: Does the patient have slight difficulty recognizing frequently encountered people, daily routines, or executing requests without the need for repetition or using self-initiated or environmental cues to remember? No. MEMORY - SCORE: 7-IND SIGNATURE PANEL: The following modified sections: Eating - Score, Grooming - Score, Bathing - Score, Dressing - Upper Body - Score, Dressing - Lower Body - Score, Toileting - Score, Bladder Management - Score, Bowel Man agement - Score, Transfers: Bed, Chair, Wheelchair - Score, Transfers: Toilet - Score, Transfers: Kimmie wer - Score, Transfers: Tub - Score, Locomotion: Walk - Score, Locomotion: Wheelchair - Score, Compre hension - Score, Expression - Score, Social Interaction - Score, Problem Solving - Score, Memory - Sc ore were [electronically] signed by Neha Kramer CNA on SatAug 10 2018 00:49:57 GMT-0500 ([place] Da ylight Time)
[2018-08-10] MEDS: METOPROLOL TAR 25 MG TAB PO SCH ×2 (05:09→16:35)
[2018-08-10] MEDS: GLATIRAMER ACETATE 20 MG SQ SCH (08:00)
[2018-08-10] MEDS: TAMSULOSIN 0.4 MG SR CAP PO SCH (08:41)
[2018-08-10] MEDS: POLYETHYL GLY 3350 17 GM/DOSE PO SCH (08:41)
[2018-08-10] MEDS: BUPROPION HCL XL 150 MG TAB PO SCH (08:42)
[2018-08-10] MEDS: APIXABAN 2.5 MG TABLET PO SCH ×2 (08:42→20:06)
[2018-08-10] MEDS: FOLIC ACID 1 MG TABLET PO SCH (08:42)
[2018-08-10] MEDS: ASPIRIN EC 81 MG TAB PO SCH (08:42)
[2018-08-10] MEDS: AMANTADINE 100 MG CAP PO SCH (08:42)
--- NOTE | 2018-08-10 09:29 | FAST ---
SHIFT START DATE/TIME: 08/10/2018 07:00 (CDT) SHIFT END DATE/TIME: 08/10/2018 19:00 (CDT) NAME DIEGO SINCLAIR DATE OF : 1960 DATE OF ADMISSION: 08/06/2018 15:32 (CDT) PHONE: AGE: 57 SSN# [id number] GENDER: Male ENCOUNTER PHYSICIAN: Dr. Jin Delvalle M.D. ADMISSION DIAGNOSIS: - Neurologic Conditions 03 - Multiple Sclerosis (03.1) Multiple Sclerosis. EATING: EATING - STEP 1: Does the patient require the assistance of a person or device, or need extra time when eating? Yes. EATING - STEP 2: Does the patient require the assistance of a helper? Yes. EATING - STEP 3: Does the patient perform half or more of the eating tasks? Yes. EATING - STEP 4: Does the patient need only supervision, cuing, coaxing OR help to apply an orthosis OR help to cut fo od, open containers, pour liquids, or butter bread? Yes. EATING - SCORE: 5-SUP GROOMING: Comb/brush hair Oral care Wash, rinse, and dry face Wash, rinse, and dry hands GROOMING - STEP 1: Does the patient require the assistance of a person or device, or need extra time when grooming? Yes. GROOMING - STEP 2: Does the patient require the assistance of a helper? No. The patient only requires an assistive devic e, OR takes more than reasonable time to groom, OR there is a concern for safety as the patient groom s GROOMING - SCORE: 6-NADIA BATHING: Activity did not occur on this shift BATHING - SCORE: 0-UNK DRESSING - UPPER BODY: Activity did not occur on this shift ARTICLES SCORE Total number of steps: 0 DRESSING - UPPER BODY - SCORE: 0-UNK DRESSING - LOWER BODY: Activity did not occur on this shift ARTICLES SCORE Total number of steps: 0 DRESSING - LOWER BODY - SCORE: 0-UNK TOILETING: TOILETING - STEP 1: Does the patient require the assistance of a person or device, or need extra time with toileting? Yes . TOILETING - STEP 2: Does the patient require the assistance of a helper? Yes. TOILETING - STEP 3: How much assistance does the patient require from the helper? Hands-on assistance from the helper TOILETING - STEP 4: Of the 3 tasks: 1) Adjusting clothing prior to use, 2) Cleansing of perineal area, 3) Adjusting clot deidre after use; How many tasks does the patient perform WITHOUT assistance of the helper? Two tasks TOILETING - SCORE: 3-MOD BLADDER MANAGEMENT: BLADDER MANAGEMENT - STEP 1: Does the patient control the bladder completely and intentionally without equipment or devices or med ications, and is always continent? No. BLADDER MANAGEMENT - STEP 2: Does the patient require the assistance of a helper? No, patient requires and independently uses an a ssistive device, such as a urinal, bedpan, bedside commode, catheter, absorbent pad, or collecting de vice BLADDER MANAGEMENT - SCORE: 6-NADIA BOWEL MANAGEMENT: Activity did not occur on this shift BOWEL MANAGEMENT - SCORE: 7-IND TRANSFERS: BED, CHAIR, WHEELCHAIR: TRANSFERS: BED, CHAIR, WHEELCHAIR - STEP 1: Does the patient require assistance of a person or device, or need extra time with bed, chair, or whe elchair transfers? Yes. TRANSFERS: BED, CHAIR, WHEELCHAIR - STEP 2: Does the patient require the assistance of a helper? Yes. TRANSFERS: BED, CHAIR, WHEELCHAIR - STEP 3: How much assistance does the patient require from the helper? Only supervision TRANSFERS: BED, CHAIR, WHEELCHAIR - SCORE: 5-SUP TRANSFERS: TOILET: TRANSFERS: TOILET - STEP 1: Does the patient require the assistance of a person or device, or need extra time with toilet transfe rs? Yes. TRANSFERS: TOILET - STEP 2: Does the patient require the assistance of a helper? Yes. TRANSFERS: TOILET - STEP 3: How much assistance does the patient require from the helper? Only supervision, cuing, coaxing, OR he lp to set out transfer equipment or to lock brakes and/or lift foot rests TRANSFERS: TOILET - SCORE: 5-SUP TRANSFERS: SHOWER: Activity did not occur on this shift TRANSFERS: SHOWER - SCORE: 0-UNK TRANSFERS: TUB: Activity did not occur on this shift TRANSFERS: TUB - SCORE: 0-UNK LOCOMOTION: WALK: Activity did not occur on this shift LOCOMOTION: WALK - SCORE: 0-UNK LOCOMOTION: WHEELCHAIR: Activity did not occur on this shift LOCOMOTION: WHEELCHAIR - SCORE: 0-UNK COMPREHENSION: COMPREHENSION: TYPE: Both COMPREHENSION - STEP 1: Does the patient require help from a person or device, or need extra time to understand complex and a bstract ideas (such as current events, finances, discharge planning, medical issues, relationships, e tc)? No. COMPREHENSION - STEP 2: Does the patient need extra time, require an assistive device (such as glasses for visual comprehensi on or a hearing aid for auditory comprehension) or does s/he have mild difficulty understanding compl ex and abstract information? Yes. COMPREHENSION - SCORE: 6-NADIA EXPRESSION EXPRESSION: TYPE: Both EXPRESSION - STEP 1: Does the patient require help from a person or device, or need extra time expressing complex and abst ract ideas (such as current events, finances, discharge planning, medical issues, relationships, etc) ? No. EXPRESSION - STEP 2: Does the patient need extra time, require an assistive device (such as augmentive communication syste m or a communication board), OR does s/he have mild difficulty expressing complex and abstract ideas (including mild dysarthria or mild word-find problems)? Yes. EXPRESSION - SCORE: 6-NADIA SOCIAL INTERACTION: SOCIAL INTERACTION - STEP 1: Does the patient require a helper to interact with others in social and therapeutic situations? No. SOCIAL INTERACTION - STEP 2: Does the patient need extra time in social situations, OR does s/he interact with staff, other patien ts, and family members ONLY in structured environments, OR does s/he require medication for social in teraction? Yes, patient needs extra time SOCIAL INTERACTION - SCORE: 6-NADIA PROBLEM SOLVING: PROBLEM SOLVING - STEP 1: Does the patient need help from a person or device, or need extra time to solve complex problems such as managing a checking account or confronting interpersonal problems? No. PROBLEM SOLVING - STEP 2: Does the patient require extra time to make decisions or solve problems, OR does s/he have slight dif ficulty reading, initiating, or self-correcting in unfamiliar situations? Yes, patient needs extra ti me. PROBLEM SOLVING - SCORE: 6-NADIA MEMORY: MEMORY - STEP 1: Does the patient need help from a person or device, or need extra time to remember frequently encount ered people, daily routines, and executing requests? No. MEMORY - STEP 2: Does the patient have slight difficulty recognizing frequently encountered people, daily routines, or executing requests without the need for repetition or using self-initiated or environmental cues to remember? Yes. MEMORY - SCORE: 6-NADIA SIGNATURE PANEL: The following modified sections: Eating - Score, Grooming - Score, Bathing - Score, Dressing - Upper Body - Score, Dressing - Lower Body - Score, Toileting - Score, Bladder Management - Score, Bowel Man agement - Score, Transfers: Bed, Chair, Wheelchair - Score, Transfers: Toilet - Score, Transfers: Kimmie wer - Score, Transfers: Tub - Score, Locomotion: Walk - Score, Locomotion: Wheelchair - Score, Compre hension - Score, Expression - Score, Social Interaction - Score, Problem Solving - Score, Memory - Sc ore were [electronically] signed by Heber Logan on SatAug 10 2018 09:28:35 GMT-0500 (Central Daylight Time)
[2018-08-10] MEDS: ATORVASTATIN 40 MG TAB PO SCH (20:06)
[2018-08-10] MEDS: DOCUSATE NA/SENNA CONC 1 TAB PO SCH (20:06)
[2018-08-10] MEDS: MELATONIN 3 MG TABLET PO PRN (23:00)
--- NOTE | 2018-08-11 00:49 | FAST ---
SHIFT START DATE/TIME: 08/10/2018 19:00 (CDT) SHIFT END DATE/TIME: 08/11/2018 07:00 (CDT) NAME DIEGO SINCLAIR DATE OF : 1960 DATE OF ADMISSION: 08/06/2018 15:32 (CDT) PHONE: AGE: 57 SSN# [id number] GENDER: Male ENCOUNTER PHYSICIAN: Dr. Jin Delvalle M.D. ADMISSION DIAGNOSIS: - Neurologic Conditions 03 - Multiple Sclerosis (03.1) Multiple Sclerosis. EATING: Activity did not occur on this shift EATING - SCORE: 0-UNK GROOMING: Activity did not occur on this shift GROOMING - SCORE: 0-UNK BATHING: Activity did not occur on this shift BATHING - SCORE: 0-UNK DRESSING - UPPER BODY: Patient is not dressing in public clothing ARTICLES SCORE Total number of steps: 0 DRESSING - UPPER BODY - SCORE: 0-UNK DRESSING - LOWER BODY: Patient is not dressing in public clothing ARTICLES SCORE Total number of steps: 0 DRESSING - LOWER BODY - SCORE: 0-UNK TOILETING: TOILETING - STEP 1: Does the patient require the assistance of a person or device, or need extra time with toileting? Yes . TOILETING - STEP 2: Does the patient require the assistance of a helper? Yes. TOILETING - STEP 3: How much assistance does the patient require from the helper? Only supervision TOILETING - SCORE: 5-SUP BLADDER MANAGEMENT: BLADDER MANAGEMENT - STEP 1: Does the patient control the bladder completely and intentionally without equipment or devices or med ications, and is always continent? Yes. BLADDER MANAGEMENT - SCORE: 7-IND BOWEL MANAGEMENT: Activity did not occur on this shift BOWEL MANAGEMENT - SCORE: 7-IND TRANSFERS: BED, CHAIR, WHEELCHAIR: TRANSFERS: BED, CHAIR, WHEELCHAIR - STEP 1: Does the patient require assistance of a person or device, or need extra time with bed, chair, or whe elchair transfers? Yes. TRANSFERS: BED, CHAIR, WHEELCHAIR - STEP 2: Does the patient require the assistance of a helper? Yes. TRANSFERS: BED, CHAIR, WHEELCHAIR - STEP 3: How much assistance does the patient require from the helper? Only supervision TRANSFERS: BED, CHAIR, WHEELCHAIR - SCORE: 5-SUP TRANSFERS: TOILET: TRANSFERS: TOILET - STEP 1: Does the patient require the assistance of a person or device, or need extra time with toilet transfe rs? Yes. TRANSFERS: TOILET - STEP 2: Does the patient require the assistance of a helper? Yes. TRANSFERS: TOILET - STEP 3: How much assistance does the patient require from the helper? Only supervision, cuing, coaxing, OR he lp to set out transfer equipment or to lock brakes and/or lift foot rests TRANSFERS: TOILET - SCORE: 5-SUP TRANSFERS: SHOWER: Activity did not occur on this shift TRANSFERS: SHOWER - SCORE: 0-UNK TRANSFERS: TUB: Activity did not occur on this shift TRANSFERS: TUB - SCORE: 0-UNK LOCOMOTION: WALK: Activity did not occur on this shift LOCOMOTION: WALK - SCORE: 0-UNK LOCOMOTION: WHEELCHAIR: Activity did not occur on this shift LOCOMOTION: WHEELCHAIR - SCORE: 0-UNK COMPREHENSION: COMPREHENSION: TYPE: Both COMPREHENSION - STEP 1: Does the patient require help from a person or device, or need extra time to understand complex and a bstract ideas (such as current events, finances, discharge planning, medical issues, relationships, e tc)? No. COMPREHENSION - STEP 2: Does the patient need extra time, require an assistive device (such as glasses for visual comprehensi on or a hearing aid for auditory comprehension) or does s/he have mild difficulty understanding compl ex and abstract information? Yes. COMPREHENSION - SCORE: 6-NADIA EXPRESSION EXPRESSION: TYPE: Both EXPRESSION - STEP 1: Does the patient require help from a person or device, or need extra time expressing complex and abst ract ideas (such as current events, finances, discharge planning, medical issues, relationships, etc) ? No. EXPRESSION - STEP 2: Does the patient need extra time, require an assistive device (such as augmentive communication syste m or a communication board), OR does s/he have mild difficulty expressing complex and abstract ideas (including mild dysarthria or mild word-find problems)? No. EXPRESSION - SCORE: 7-IND SOCIAL INTERACTION: SOCIAL INTERACTION - STEP 1: Does the patient require a helper to interact with others in social and therapeutic situations? No. SOCIAL INTERACTION - STEP 2: Does the patient need extra time in social situations, OR does s/he interact with staff, other patien ts, and family members ONLY in structured environments, OR does s/he require medication for social in teraction? No. SOCIAL INTERACTION - SCORE: 7-IND PROBLEM SOLVING: PROBLEM SOLVING - STEP 1: Does the patient need help from a person or device, or need extra time to solve complex problems such as managing a checking account or confronting interpersonal problems? No. PROBLEM SOLVING - STEP 2: Does the patient require extra time to make decisions or solve problems, OR does s/he have slight dif ficulty reading, initiating, or self-correcting in unfamiliar situations? No. PROBLEM SOLVING - SCORE: 7-IND MEMORY: MEMORY - STEP 1: Does the patient need help from a person or device, or need extra time to remember frequently encount ered people, daily routines, and executing requests? No. MEMORY - STEP 2: Does the patient have slight difficulty recognizing frequently encountered people, daily routines, or executing requests without the need for repetition or using self-initiated or environmental cues to remember? No. MEMORY - SCORE: 7-IND SIGNATURE PANEL: The following modified sections: Eating - Score, Grooming - Score, Bathing - Score, Dressing - Upper Body - Score, Dressing - Lower Body - Score, Toileting - Score, Bladder Management - Score, Bowel Man agement - Score, Transfers: Bed, Chair, Wheelchair - Score, Transfers: Toilet - Score, Transfers: Kimmie wer - Score, Transfers: Tub - Score, Locomotion: Walk - Score, Locomotion: Wheelchair - Score, Compre hension - Score, Expression - Score, Social Interaction - Score, Problem Solving - Score, Memory - Sc ore were [electronically] signed by Neha Kramer CNA on SatAug 11 2018 00:48:46 GMT-0500 ([place] Da ylight Time)
[2018-08-11] MEDS: METOPROLOL TAR 25 MG TAB PO SCH ×2 (05:17→17:29)
[2018-08-11] MEDS: GLATIRAMER ACETATE 20 MG SQ SCH (08:00)
[2018-08-11] MEDS: FOLIC ACID 1 MG TABLET PO SCH (08:22)
[2018-08-11] MEDS: TAMSULOSIN 0.4 MG SR CAP PO SCH (08:22)
[2018-08-11] MEDS: APIXABAN 2.5 MG TABLET PO SCH ×2 (08:22→20:38)
[2018-08-11] MEDS: POLYETHYL GLY 3350 17 GM/DOSE PO SCH (08:22)
[2018-08-11] MEDS: BUPROPION HCL XL 150 MG TAB PO SCH (08:22)
[2018-08-11] MEDS: ASPIRIN EC 81 MG TAB PO SCH (08:22)
[2018-08-11] MEDS: AMANTADINE 100 MG CAP PO SCH (08:22)
--- NOTE | 2018-08-11 13:38 | FAST ---
SHIFT START DATE/TIME: 08/11/2018 07:00 (CDT) SHIFT END DATE/TIME: 08/11/2018 19:00 (CDT) NAME DIEGO SINCLAIR DATE OF : 1960 DATE OF ADMISSION: 08/06/2018 15:32 (CDT) PHONE: AGE: 57 SSN# [id number] GENDER: Male ENCOUNTER PHYSICIAN: Dr. Jin Delvalle M.D. ADMISSION DIAGNOSIS: - Neurologic Conditions 03 - Multiple Sclerosis (03.1) Multiple Sclerosis. EATING: EATING - STEP 1: Does the patient require the assistance of a person or device, or need extra time when eating? Yes. EATING - STEP 2: Does the patient require the assistance of a helper? No, patient only requires an assistive device, O R s/he takes more than reasonable time to eat, OR there is a safety concern, OR s/he requires modifie d food consistency EATING - SCORE: 6-NADIA GROOMING: Comb/brush hair Oral care Wash, rinse, and dry face Wash, rinse, and dry hands GROOMING - STEP 1: Does the patient require the assistance of a person or device, or need extra time when grooming? Yes. GROOMING - STEP 2: Does the patient require the assistance of a helper? No. The patient only requires an assistive devic e, OR takes more than reasonable time to groom, OR there is a concern for safety as the patient groom s GROOMING - SCORE: 6-NADIA BATHING: Activity did not occur on this shift BATHING - SCORE: 0-UNK DRESSING - UPPER BODY: Activity did not occur on this shift ARTICLES SCORE Total number of steps: 0 DRESSING - UPPER BODY - SCORE: 0-UNK DRESSING - LOWER BODY: Activity did not occur on this shift ARTICLES SCORE Total number of steps: 0 DRESSING - LOWER BODY - SCORE: 0-UNK TOILETING: TOILETING - STEP 1: Does the patient require the assistance of a person or device, or need extra time with toileting? Yes . TOILETING - STEP 2: Does the patient require the assistance of a helper? No. TOILETING - SCORE: 6-NADIA BLADDER MANAGEMENT: BLADDER MANAGEMENT - STEP 1: Does the patient control the bladder completely and intentionally without equipment or devices or med ications, and is always continent? Yes. BLADDER MANAGEMENT - SCORE: 7-IND BOWEL MANAGEMENT: BOWEL MANAGEMENT - STEP 1: Does the patient control bowels completely and intentionally without equipment devices or medications AND is always continent? No. BOWEL MANAGEMENT - STEP 2: Does the patient require the assistance of a helper? No, patient requires and manages independently a n assistive device such as a bedpan, bedside commode, absorbent pad, incontinent device, or collectin g device BOWEL MANAGEMENT - SCORE: 6-NADIA TRANSFERS: BED, CHAIR, WHEELCHAIR: TRANSFERS: BED, CHAIR, WHEELCHAIR - STEP 1: Does the patient require assistance of a person or device, or need extra time with bed, chair, or whe elchair transfers? Yes. TRANSFERS: BED, CHAIR, WHEELCHAIR - STEP 2: Does the patient require the assistance of a helper? No. Patient only requires an assistive device fo r bed, chair, wheelchair transfers such as a sliding board, grab bar, or brace, OR s/he takes more th an reasonable time, OR there is a safety concern when s/he performs the transfers TRANSFERS: BED, CHAIR, WHEELCHAIR - SCORE: 6-NADIA TRANSFERS: TOILET: TRANSFERS: TOILET - STEP 1: Does the patient require the assistance of a person or device, or need extra time with toilet transfe rs? Yes. TRANSFERS: TOILET - STEP 2: Does the patient require the assistance of a helper? No. Patient only requires an assistive device chau ch as a grab bar or special seat, OR s/he takes more than reasonable time to perform toilet transfers , OR there is a safety concern when s/he performs toilet transfers. TRANSFERS: TOILET - SCORE: 6-NADIA TRANSFERS: SHOWER: Activity did not occur on this shift TRANSFERS: SHOWER - SCORE: 0-UNK TRANSFERS: TUB: Activity did not occur on this shift TRANSFERS: TUB - SCORE: 0-UNK LOCOMOTION: WALK: Activity did not occur on this shift LOCOMOTION: WALK - SCORE: 0-UNK LOCOMOTION: WHEELCHAIR: Activity did not occur on this shift LOCOMOTION: WHEELCHAIR - SCORE: 0-UNK COMPREHENSION: COMPREHENSION: TYPE: Both COMPREHENSION - STEP 1: Does the patient require help from a person or device, or need extra time to understand complex and a bstract ideas (such as current events, finances, discharge planning, medical issues, relationships, e tc)? No. COMPREHENSION - STEP 2: Does the patient need extra time, require an assistive device (such as glasses for visual comprehensi on or a hearing aid for auditory comprehension) or does s/he have mild difficulty understanding compl ex and abstract information? No. COMPREHENSION - SCORE: 7-IND EXPRESSION EXPRESSION: TYPE: Both EXPRESSION - STEP 1: Does the patient require help from a person or device, or need extra time expressing complex and abst ract ideas (such as current events, finances, discharge planning, medical issues, relationships, etc) ? No. EXPRESSION - STEP 2: Does the patient need extra time, require an assistive device (such as augmentive communication syste m or a communication board), OR does s/he have mild difficulty expressing complex and abstract ideas (including mild dysarthria or mild word-find problems)? Yes. EXPRESSION - SCORE: 6-NADIA SOCIAL INTERACTION: SOCIAL INTERACTION - STEP 1: Does the patient require a helper to interact with others in social and therapeutic situations? No. SOCIAL INTERACTION - STEP 2: Does the patient need extra time in social situations, OR does s/he interact with staff, other patien ts, and family members ONLY in structured environments, OR does s/he require medication for social in teraction? Yes, patient needs extra time SOCIAL INTERACTION - SCORE: 6-NADIA PROBLEM SOLVING: PROBLEM SOLVING - STEP 1: Does the patient need help from a person or device, or need extra time to solve complex problems such as managing a checking account or confronting interpersonal problems? No. PROBLEM SOLVING - STEP 2: Does the patient require extra time to make decisions or solve problems, OR does s/he have slight dif ficulty reading, initiating, or self-correcting in unfamiliar situations? Yes, patient needs extra ti me. PROBLEM SOLVING - SCORE: 6-NADIA MEMORY: MEMORY - STEP 1: Does the patient need help from a person or device, or need extra time to remember frequently encount ered people, daily routines, and executing requests? No. MEMORY - STEP 2: Does the patient have slight difficulty recognizing frequently encountered people, daily routines, or executing requests without the need for repetition or using self-initiated or environmental cues to remember? No. MEMORY - SCORE: 7-IND SIGNATURE PANEL: The following modified sections: Eating - Score, Grooming - Score, Bathing - Score, Dressing - Upper Body - Score, Dressing - Lower Body - Score, Toileting - Score, Bladder Management - Score, Bowel Man agement - Score, Transfers: Bed, Chair, Wheelchair - Score, Transfers: Toilet - Score, Transfers: Kimmie wer - Score, Transfers: Tub - Score, Locomotion: Walk - Score, Locomotion: Wheelchair - Score, Compre hension - Score, Expression - Score, Social Interaction - Score, Problem Solving - Score, Memory - Sc ore were [electronically] signed by Heber Logan on SatAug 11 2018 13:38:05 GMT-0500 (Central Daylight Time)
--- NOTE | 2018-08-11 14:33 | FAST ---
ENCOUNTER DATE AND TIME: 08/11/2018 08:00 (CDT) NAME DIEGO SINCLAIR DATE OF : 1960 DATE OF ADMISSION: 08/06/2018 15:32 (CDT) PHONE: AGE: 57 SSN# [id number] GENDER: Male ENCOUNTER PHYSICIAN: Dr. Jin Delvalle M.D. ADMISSION DIAGNOSIS: - Neurologic Conditions 03 - Multiple Sclerosis (03.1) Multiple Sclerosis. EATING: EATING - STEP 1: Does the patient require the assistance of a person or device, or need extra time when eating? No. EATING - SCORE: 7-IND GROOMING: Comb/brush hair Oral care Wash, rinse, and dry face Wash, rinse, and dry hands GROOMING - STEP 1: Does the patient require the assistance of a person or device, or need extra time when grooming? No. GROOMING - SCORE: 7-IND BATHING: Abdomen Buttocks Chest Left arm Left lower leg and foot Left upper leg Perineal area Right arm Right lower leg and foot Right upper leg BATHING - STEP 1: Does the patient require the assistance of a person or device, or need extra time when bathing? Yes. BATHING - STEP 2: Does the patient require the assistance of a helper? No. The patient only requires an assistive devic e such as a bath renata, OR the patient takes more than reasonable time to bathe, OR there is a concern for safety such as regulating water temperature as the patient bathes. BATHING - SCORE: 6-NADIA DRESSING - UPPER BODY: T-shirt/pullover shirt (four steps) ARTICLES SCORE Total number of steps: 4 DRESSING - UPPER BODY - STEP 1: Does the patient require help from a person or device, or need extra time when dressing above the [address]? No. DRESSING - UPPER BODY - SCORE: 7-IND DRESSING - LOWER BODY: Elastic waist pants (three steps) Sock - Left foot (one step) Sock - Right foot (one step) Underwear (three steps) ARTICLES SCORE Total number of steps: 8 DRESSING - LOWER BODY - STEP 1: Does the patient require help from a person or device, or need extra time when dressing below the [address]? Yes. DRESSING - LOWER BODY - STEP 2: Does the patient require the assistance of a helper? No. Patient requires an assistive device such as a senior category manager. OR s/he takes more than reasonable time as s/he dresses the lower body, OR there is a con cern for safety when s/he dresses the lower body DRESSING - LOWER BODY - SCORE: 6-NADIA TOILETING: TOILETING - STEP 1: Does the patient require the assistance of a person or device, or need extra time with toileting? Yes . TOILETING - STEP 2: Does the patient require the assistance of a helper? No. TOILETING - SCORE: 6-NADIA BLADDER MANAGEMENT: Activity did not occur on this shift BLADDER MANAGEMENT - SCORE: 7-IND BOWEL MANAGEMENT: Activity did not occur on this shift BOWEL MANAGEMENT - SCORE: 7-IND TRANSFERS: BED, CHAIR, WHEELCHAIR: Activity did not occur on this shift TRANSFERS: BED, CHAIR, WHEELCHAIR - SCORE: 0-UNK TRANSFERS: TOILET: Activity did not occur on this shift TRANSFERS: TOILET - SCORE: 0-UNK TRANSFERS: SHOWER: TRANSFERS: SHOWER - STEP 1: Does the patient require the assistance of a person or device, or need extra time with shower transfe rs? Yes. TRANSFERS: SHOWER - STEP 2: Does the patient require the assistance of a helper? No. The patient only uses an assistive device, t akes more than reasonable time, OR there is a concern for safety when s/he performs transfers. TRANSFERS: SHOWER - SCORE: 6-NADIA TRANSFERS: TUB: Activity did not occur on this shift TRANSFERS: TUB - SCORE: 0-UNK LOCOMOTION: WALK: Activity did not occur on this shift LOCOMOTION: WALK - SCORE: 0-UNK LOCOMOTION: WHEELCHAIR: Activity did not occur on this shift LOCOMOTION: WHEELCHAIR - SCORE: 0-UNK LOCOMOTION: STAIRS: Activity did not occur on this shift LOCOMOTION: STAIRS - SCORE: 0-UNK COMPREHENSION: COMPREHENSION: TYPE: Both COMPREHENSION - STEP 1: Does the patient require help from a person or device, or need extra time to understand complex and a bstract ideas (such as current events, finances, discharge planning, medical issues, relationships, e tc)? No. COMPREHENSION - STEP 2: Does the patient need extra time, require an assistive device (such as glasses for visual comprehensi on or a hearing aid for auditory comprehension) or does s/he have mild difficulty understanding compl ex and abstract information? No. COMPREHENSION - SCORE: 7-IND EXPRESSION EXPRESSION: TYPE: Both EXPRESSION - STEP 1: Does the patient require help from a person or device, or need extra time expressing complex and abst ract ideas (such as current events, finances, discharge planning, medical issues, relationships, etc) ? No. EXPRESSION - STEP 2: Does the patient need extra time, require an assistive device (such as augmentive communication syste m or a communication board), OR does s/he have mild difficulty expressing complex and abstract ideas (including mild dysarthria or mild word-find problems)? No. EXPRESSION - SCORE: 7-IND SOCIAL INTERACTION: SOCIAL INTERACTION - STEP 1: Does the patient require a helper to interact with others in social and therapeutic situations? No. SOCIAL INTERACTION - STEP 2: Does the patient need extra time in social situations, OR does s/he interact with staff, other patien ts, and family members ONLY in structured environments, OR does s/he require medication for social in teraction? No. SOCIAL INTERACTION - SCORE: 7-IND PROBLEM SOLVING: PROBLEM SOLVING - STEP 1: Does the patient need help from a person or device, or need extra time to solve complex problems such as managing a checking account or confronting interpersonal problems? No. PROBLEM SOLVING - STEP 2: Does the patient require extra time to make decisions or solve problems, OR does s/he have slight dif ficulty reading, initiating, or self-correcting in unfamiliar situations? Yes, patient needs extra ti me. PROBLEM SOLVING - SCORE: 6-NADIA MEMORY: MEMORY - STEP 1: Does the patient need help from a person or device, or need extra time to remember frequently encount ered people, daily routines, and executing requests? No. MEMORY - STEP 2: Does the patient have slight difficulty recognizing frequently encountered people, daily routines, or executing requests without the need for repetition or using self-initiated or environmental cues to remember? Yes. MEMORY - SCORE: 6-NADIA SIGNATURE PANEL: The following modified sections: Eating - Score, Grooming - Score, Bathing - Score, Dressing - Upper Body - Score, Dressing - Lower Body - Score, Toileting - Score, Transfers: Bed, Chair, Wheelchair - S core, Transfers: Toilet - Score, Transfers: Tub - Score, Transfers: Shower - Score, Comprehension - S core, Expression - Score, Social Interaction - Score, Problem Solving - Score, Memory - Score were [e lectronically] signed by Ann-Marie Hutchins OT on SatAug 11 2018 14:32:37 GMT-0500 (Central Daylight T jos[place] l[place])
--- NOTE | 2018-08-11 16:38 | FAST ---
ENCOUNTER DATE AND TIME: 08/11/2018 08:00 (CDT) NAME DIEGO SINCLAIR DATE OF : 1960 DATE OF ADMISSION: 08/06/2018 15:32 (CDT) PHONE: AGE: 57 SSN# [id number] GENDER: Male ENCOUNTER PHYSICIAN: Dr. Jin Delvalle M.D. ADMISSION DIAGNOSIS: - Neurologic Conditions 03 - Multiple Sclerosis (03.1) Multiple Sclerosis. EATING: Activity did not occur on this shift EATING - SCORE: 0-UNK GROOMING: Activity did not occur on this shift GROOMING - SCORE: 0-UNK BATHING: Activity did not occur on this shift BATHING - SCORE: 0-UNK DRESSING - UPPER BODY: Activity did not occur on this shift Patient is not dressing in public clothing ARTICLES SCORE Total number of steps: 0 DRESSING - UPPER BODY - SCORE: 0-UNK DRESSING - LOWER BODY: Activity did not occur on this shift Patient is not dressing in public clothing ARTICLES SCORE Total number of steps: 0 DRESSING - LOWER BODY - SCORE: 0-UNK TOILETING: Activity did not occur on this shift TOILETING - SCORE: 0-UNK BLADDER MANAGEMENT: Activity did not occur on this shift BLADDER MANAGEMENT - SCORE: 7-IND BOWEL MANAGEMENT: Activity did not occur on this shift BOWEL MANAGEMENT - SCORE: 7-IND TRANSFERS: BED, CHAIR, WHEELCHAIR: TRANSFERS: BED, CHAIR, WHEELCHAIR - STEP 1: Does the patient require assistance of a person or device, or need extra time with bed, chair, or whe elchair transfers? No. TRANSFERS: BED, CHAIR, WHEELCHAIR - SCORE: 7-IND TRANSFERS: TOILET: Activity did not occur on this shift TRANSFERS: TOILET - SCORE: 0-UNK TRANSFERS: SHOWER: Activity did not occur on this shift TRANSFERS: SHOWER - SCORE: 0-UNK TRANSFERS: TUB: Activity did not occur on this shift TRANSFERS: TUB - SCORE: 0-UNK LOCOMOTION: WALK: LOCOMOTION: WALK - STEP 1: Does the patient need help from a person or device, or need extra time to walk 150 feet? No. LOCOMOTION: WALK - STEP 2: Does the patient need an assistive device (such as an orthosis, prosthesis, crutches, or walker) to g o 150 feet, OR does s/he take more than reasonable time, OR is there a concern for safety? No. LOCOMOTION: WALK - SCORE: 7-IND LOCOMOTION: WHEELCHAIR: Activity did not occur on this shift LOCOMOTION: WHEELCHAIR - SCORE: 0-UNK LOCOMOTION: STAIRS: LOCOMOTION: STAIRS - STEP 1: Does the patient need help to go up and down 12 to 14 stairs? No. LOCOMOTION: STAIRS - STEP 2: Does the patient require an assistive device - such as handrails or cane - to go up and down one flig ht of stairs, OR does s/he take more than reasonable time, OR is there a concern for safety? Yes, the patient requires an assistive device LOCOMOTION: STAIRS - SCORE: 6-NADIA COMPREHENSION: COMPREHENSION - SCORE: 0-UNK EXPRESSION EXPRESSION - SCORE: 0-UNK SOCIAL INTERACTION: SOCIAL INTERACTION - SCORE: 0-UNK PROBLEM SOLVING: PROBLEM SOLVING - SCORE: 0-UNK MEMORY: MEMORY - SCORE: 0-UNK SIGNATURE PANEL: The following modified sections: Transfers: Bed, Chair, Wheelchair - Score, Transfers: Toilet - Score , Locomotion: Walk - Score, Locomotion: Wheelchair - Score, Locomotion: Stairs - Score were [electron sehba] signed by Curtis Brody PT on SatAug 11 2018 16:36:40 GMT-0500 (Central Daylight Time)
[2018-08-11] MEDS: DOCUSATE NA/SENNA CONC 1 TAB PO SCH (20:37)
[2018-08-11] MEDS: ATORVASTATIN 40 MG TAB PO SCH (20:37)
--- NOTE | 2018-08-11 22:28 | R.PN ---
ENCOUNTER DATE AND TIME: 08/11/2018 22:25 (CDT) NAME DIEGO SINCLAIR DATE OF : 1960 DATE OF ADMISSION: 08/06/2018 15:32 (CDT) Multiple SclerosisCHIEF COMPLAINT: Debility and multiple sclerosis SUBJECTIVE: Pt denied any depression. Pt denied any Shortness of Breath. He is doing very well with physical and occipital therapy. VITAL SIGNS Temperature: 97.7 F SBP/DBP: 139/77 Pulse: 59 Resp: 14 MEDICATION ALLERGIES: No Known Drug Allergies (NKDA) ENVIRONMENTAL ALLERGIES: None Known - Substance Allergies None Known - Other Allergies None Known NURSING: - Shower allowing shower - Bladder care per protocol - Skin care per protocol ACTIVITIES OOB only with supervision THERAPIES: - Occupational Therapy Evaluate and Treat. - Physical Therapy Evaluate and Treat. PHYSICAL EXAM - Gen Alert and awake Lying in bed No apparent distress Oriented to: person, time, and place - Skin No breakdown No abnormalities - Eyes No abnormalities - ENMT No abnormalities - Neck No abnormalities - CVS RRR - Chest No abnormalities - Abd Soft - GI nondistended Deferred - No abnormalities - Ext No significant edema - MSK 4+/5 weakness in both lower extremities. - Neuro No focal deficits - Psych No abnormalities ASSESSMENT: Pt. is a 57 yo Right-handed white male.On 08/04/2018 he was admitted to [facility] with diagnosis Multiple Sclerosis.His impairment category is Neurologic Conditions 03 - Multiple Sclerosis (03.1).Pre-morbidly, Pt. was independent/mod-I in Self-Care, Sphincter Control, Transfers Control, Locomotion, Communication, and Social Cognition; and he had good Sphincter Control.Currently , he has deficits of Transfers Control, Locomotion, Endurance, Balance, Safety Awareness, and Self-Ca re.Pt. is now referred to [facility] for acute in-patient rehabilitation [place] to maximize patient's functional independence in activities of daily living, strength, ROM, and m obility.- Rehab Goal Patient has realistic goal of being discharged at assistance level 6-Aster to reside at Home with Fam lety/Relatives. MDM/PLAN: - Physical Therapy Gait dysfunction - to improve, our physical therapists will perform initial evaluation of pt's statu s upon admission and devise an individualized program for Gait Training, and Wheel Chair mobility Inability to transfer - to improve, our physical therapists will perform initial evaluation of pt's status upon admission and devise an individualized program for Bed mobility Need for home safety evaluation - to improve, our physical therapists will perform initial evaluatio n of pt's status upon admission and devise an individualized program for Home Evaluation Need in caregiver upon discharge - to improve, our physical therapists will perform initial evaluati on of pt's status upon admission and devise an individualized program for Caregiver Training New precaution - to improve, our physical therapists will perform initial evaluation of pt's status upon admission and devise an individualized program for Patient precaution education Edema - to improve, our physical therapists will perform initial evaluation of pt's status upon admis zainab and devise an individualized program for Elevation Training, and Lymphedema Therapy Poor balance - to improve, our physical therapists will perform initial evaluation of pt's status up on admission and devise an individualized program for Balance Training Poor endurance - to improve, our physical therapists will perform initial evaluation of pt's status upon admission and devise an individualized program for Endurance Training Weakness - to improve, our physical therapists will perform initial evaluation of pt's status upon a dmission and devise an individualized program for Aquatic Therapy, Neuromuscular Reeducation, and Str engthening Achieving independence - to improve, our physical therapists will perform initial evaluation of pt's status upon admission and devise an individualized program for Community Reintegration Activities - Occupational Therapy ADL deficits - to improve, our occupation therapists will perform initial evaluation of pt's status upon admission and devise an individualized program for Bathing, Bed mobility, Community Reintegratio n, Cooking, Dressing, Eating, Fine Motor Skills, Grooming, Homemaking, Kitchen Mobility, Laundry, Pat ient Education, Safety Awareness, Splinting - Positioning, Transfers(Toilet, Tub, Shower), and Wheel Chair Management Need for primary care physician - to improve, our occupation therapists will perform initial evaluation of pt's status upon admission and devise an individualized program for Caregiver Training Weakness - to improve, our occupation therapists will perform initial evaluation of pt's status upon admission and devise an individualized program for Aquatic Therapy, Balance, Endurance, UE ROM, and UE strengthening - Diet Type Continue Heart Healthy - Diet - Liquid Texture Continue Regular - Tube Feed Continue N/A - Bladder care per protocol - Skin care per protocol - Diet - Solid Texture Continue Regular - Shower allowing shower FUNCTIONAL STATUS: UPDATED AT WEEKLY TEAM CONFERENCE - Bladder Same accident frequency: 7-Ind - No accidents in the past 7 days - Bowel Same accident frequency: 7-Ind - No accidents in the past 7 days - Walking Same score based on distance walked: 3(>=150ft) - Wheelchair Same score based on distance traveled: 3(>=150ft) FUNCTIONAL STATUS: - Self-Care A. Eating Aster B. Grooming sup C. Bathing sup D. Dressing - Upper sup E. Dressing - Lower maxA F. Toileting sup - Sphincter Control G: Bladder control Ind H: Bowel control Ind - Transfers Control I. Bed/Chair/Wheelchair Flaca J. Toilet Flaca K. Tub/Shower ADNO - Locomotion L. Walk/Wheelchair (C) Flaca L. Walk/Wheelchair (W) Flaca M. Stairs ADNO - Communication N. Comprehension (B) Ind O. Expression (B) Ind - Social Cognition P. Social Interaction Ind Q. Problem Solving Ind R. Memory Ind - Endurance Fair - Balance Poor - Safety Awareness Fair CURRENT FUNC. DEFICITS: Transfers Control, Locomotion, Endurance, Balance, Safety Awareness, and Self-Care SIGNATURE PANEL: (CDT)
[2018-08-11] MEDS: MELATONIN 3 MG TABLET PO PRN (23:30)
--- NOTE | 2018-08-12 00:18 | FAST ---
SHIFT START DATE/TIME: 08/11/2018 19:00 (CDT) SHIFT END DATE/TIME: 08/12/2018 07:00 (CDT) NAME DIEGO SINCLAIR DATE OF : 1960 DATE OF ADMISSION: 08/06/2018 15:32 (CDT) PHONE: AGE: 57 SSN# [id number] GENDER: Male ENCOUNTER PHYSICIAN: Dr. Jin Delvalle M.D. ADMISSION DIAGNOSIS: - Neurologic Conditions 03 - Multiple Sclerosis (03.1) Multiple Sclerosis. EATING: Activity did not occur on this shift EATING - SCORE: 0-UNK GROOMING: Oral care Wash, rinse, and dry hands GROOMING - STEP 1: Does the patient require the assistance of a person or device, or need extra time when grooming? Yes. GROOMING - STEP 2: Does the patient require the assistance of a helper? No. The patient only requires an assistive devic e, OR takes more than reasonable time to groom, OR there is a concern for safety as the patient groom s GROOMING - SCORE: 6-NADIA BATHING: Activity did not occur on this shift BATHING - SCORE: 0-UNK DRESSING - UPPER BODY: Patient is not dressing in public clothing ARTICLES SCORE Total number of steps: 0 DRESSING - UPPER BODY - SCORE: 0-UNK DRESSING - LOWER BODY: Patient is not dressing in public clothing ARTICLES SCORE Total number of steps: 0 DRESSING - LOWER BODY - SCORE: 0-UNK TOILETING: TOILETING - STEP 1: Does the patient require the assistance of a person or device, or need extra time with toileting? Yes . TOILETING - STEP 2: Does the patient require the assistance of a helper? No. TOILETING - SCORE: 6-NADIA BLADDER MANAGEMENT: BLADDER MANAGEMENT - STEP 1: Does the patient control the bladder completely and intentionally without equipment or devices or med ications, and is always continent? Yes. BLADDER MANAGEMENT - SCORE: 7-IND BOWEL MANAGEMENT: BOWEL MANAGEMENT - STEP 1: Does the patient control bowels completely and intentionally without equipment devices or medications AND is always continent? No. BOWEL MANAGEMENT - STEP 2: Does the patient require the assistance of a helper? No, patient requires medication for control such as stool softeners, suppositories, laxatives, enemas, or OTC medications BOWEL MANAGEMENT - SCORE: 6-NADIA TRANSFERS: BED, CHAIR, WHEELCHAIR: TRANSFERS: BED, CHAIR, WHEELCHAIR - STEP 1: Does the patient require assistance of a person or device, or need extra time with bed, chair, or whe elchair transfers? Yes. TRANSFERS: BED, CHAIR, WHEELCHAIR - STEP 2: Does the patient require the assistance of a helper? No. Patient only requires an assistive device fo r bed, chair, wheelchair transfers such as a sliding board, grab bar, or brace, OR s/he takes more th an reasonable time, OR there is a safety concern when s/he performs the transfers TRANSFERS: BED, CHAIR, WHEELCHAIR - SCORE: 6-NADIA TRANSFERS: TOILET: TRANSFERS: TOILET - STEP 1: Does the patient require the assistance of a person or device, or need extra time with toilet transfe rs? Yes. TRANSFERS: TOILET - STEP 2: Does the patient require the assistance of a helper? No. Patient only requires an assistive device chau ch as a grab bar or special seat, OR s/he takes more than reasonable time to perform toilet transfers , OR there is a safety concern when s/he performs toilet transfers. TRANSFERS: TOILET - SCORE: 6-NADIA TRANSFERS: SHOWER: Activity did not occur on this shift TRANSFERS: SHOWER - SCORE: 0-UNK TRANSFERS: TUB: Activity did not occur on this shift TRANSFERS: TUB - SCORE: 0-UNK LOCOMOTION: WALK: Activity did not occur on this shift LOCOMOTION: WALK - SCORE: 0-UNK LOCOMOTION: WHEELCHAIR: Activity did not occur on this shift LOCOMOTION: WHEELCHAIR - SCORE: 0-UNK COMPREHENSION: COMPREHENSION: TYPE: Both COMPREHENSION - STEP 1: Does the patient require help from a person or device, or need extra time to understand complex and a bstract ideas (such as current events, finances, discharge planning, medical issues, relationships, e tc)? No. COMPREHENSION - STEP 2: Does the patient need extra time, require an assistive device (such as glasses for visual comprehensi on or a hearing aid for auditory comprehension) or does s/he have mild difficulty understanding compl ex and abstract information? Yes. COMPREHENSION - SCORE: 6-NADIA EXPRESSION EXPRESSION: TYPE: Both EXPRESSION - STEP 1: Does the patient require help from a person or device, or need extra time expressing complex and abst ract ideas (such as current events, finances, discharge planning, medical issues, relationships, etc) ? No. EXPRESSION - STEP 2: Does the patient need extra time, require an assistive device (such as augmentive communication syste m or a communication board), OR does s/he have mild difficulty expressing complex and abstract ideas (including mild dysarthria or mild word-find problems)? No. EXPRESSION - SCORE: 7-IND SOCIAL INTERACTION: SOCIAL INTERACTION - STEP 1: Does the patient require a helper to interact with others in social and therapeutic situations? No. SOCIAL INTERACTION - STEP 2: Does the patient need extra time in social situations, OR does s/he interact with staff, other patien ts, and family members ONLY in structured environments, OR does s/he require medication for social in teraction? Yes, patient requires medication for social interaction SOCIAL INTERACTION - SCORE: 6-NADIA PROBLEM SOLVING: PROBLEM SOLVING - STEP 1: Does the patient need help from a person or device, or need extra time to solve complex problems such as managing a checking account or confronting interpersonal problems? No. PROBLEM SOLVING - STEP 2: Does the patient require extra time to make decisions or solve problems, OR does s/he have slight dif ficulty reading, initiating, or self-correcting in unfamiliar situations? Yes, patient needs extra ti me. PROBLEM SOLVING - SCORE: 6-NADIA MEMORY: MEMORY - STEP 1: Does the patient need help from a person or device, or need extra time to remember frequently encount ered people, daily routines, and executing requests? No. MEMORY - STEP 2: Does the patient have slight difficulty recognizing frequently encountered people, daily routines, or executing requests without the need for repetition or using self-initiated or environmental cues to remember? Yes. MEMORY - SCORE: 6-NADIA SIGNATURE PANEL: The following modified sections: Eating - Score, Grooming - Score, Dressing - Upper Body - Score, John ssing - Lower Body - Score, Toileting - Score, Bladder Management - Score, Bowel Management - Score, Transfers: Bed, Chair, Wheelchair - Score, Transfers: Toilet - Score, Transfers: Shower - Score, Mensah sfers: Tub - Score, Locomotion: Walk - Score, Locomotion: Wheelchair - Score, Comprehension - Score, Expression - Score, Social Interaction - Score, Problem Solving - Score, Memory - Score were [electro nically] signed by Gisela Gay CNA on SatAug 12 2018 00:17:49 GMT-0500 (Central Daylight Time)
[2018-08-12] MEDS: METOPROLOL TAR 25 MG TAB PO SCH ×2 (05:20→16:53)
[2018-08-12] MEDS: POLYETHYL GLY 3350 17 GM/DOSE PO SCH (08:00)
[2018-08-12] MEDS: APIXABAN 2.5 MG TABLET PO SCH ×2 (08:41→20:35)
[2018-08-12] MEDS: ASPIRIN EC 81 MG TAB PO SCH (08:41)
[2018-08-12] MEDS: BUPROPION HCL XL 150 MG TAB PO SCH (08:42)
[2018-08-12] MEDS: TAMSULOSIN 0.4 MG SR CAP PO SCH (08:42)
[2018-08-12] MEDS: FOLIC ACID 1 MG TABLET PO SCH (08:42)
[2018-08-12] MEDS: AMANTADINE 100 MG CAP PO SCH (08:43)
[2018-08-12] MEDS: GLATIRAMER ACETATE 20 MG SQ SCH (08:51)
--- NOTE | 2018-08-12 14:22 | FAST ---
SHIFT START DATE/TIME: 08/12/2018 07:00 (CDT) SHIFT END DATE/TIME: 08/12/2018 19:00 (CDT) NAME DIEGO SINCLAIR DATE OF : 1960 DATE OF ADMISSION: 08/06/2018 15:32 (CDT) PHONE: AGE: 57 SSN# [id number] GENDER: Male ENCOUNTER PHYSICIAN: Dr. Jin Delvalle M.D. ADMISSION DIAGNOSIS: - Neurologic Conditions 03 - Multiple Sclerosis (03.1) Multiple Sclerosis. EATING: EATING - STEP 1: Does the patient require the assistance of a person or device, or need extra time when eating? Yes. EATING - STEP 2: Does the patient require the assistance of a helper? Yes. EATING - STEP 3: Does the patient perform half or more of the eating tasks? Yes. EATING - STEP 4: Does the patient need only supervision, cuing, coaxing OR help to apply an orthosis OR help to cut fo od, open containers, pour liquids, or butter bread? Yes. EATING - SCORE: 5-SUP GROOMING: Comb/brush hair Oral care Wash, rinse, and dry face Wash, rinse, and dry hands GROOMING - STEP 1: Does the patient require the assistance of a person or device, or need extra time when grooming? No. GROOMING - SCORE: 7-IND BATHING: Activity did not occur on this shift BATHING - SCORE: 0-UNK DRESSING - UPPER BODY: T-shirt/pullover shirt (four steps) ARTICLES SCORE Total number of steps: 4 DRESSING - UPPER BODY - STEP 1: Does the patient require help from a person or device, or need extra time when dressing above the [address]? No. DRESSING - UPPER BODY - SCORE: 7-IND DRESSING - LOWER BODY: Slip-on shoe - Left foot (one step) Sock - Left foot (one step) Sock - Right foot (one step) Tied or buckled shoe - Left foot (two steps) Tied or buckled shoe - Right foot (two steps) Underwear (three steps) Zippered pants (four steps) ARTICLES SCORE Total number of steps: 14 DRESSING - LOWER BODY - STEP 1: Does the patient require help from a person or device, or need extra time when dressing below the [address]? No. DRESSING - LOWER BODY - SCORE: 7-IND TOILETING: TOILETING - STEP 1: Does the patient require the assistance of a person or device, or need extra time with toileting? No. TOILETING - SCORE: 7-IND BLADDER MANAGEMENT: BLADDER MANAGEMENT - STEP 1: Does the patient control the bladder completely and intentionally without equipment or devices or med ications, and is always continent? Yes. BLADDER MANAGEMENT - SCORE: 7-IND BLADDER MANAGEMENT - FREQUENCY OF ACCIDENTS: BLADDER MANAGEMENT(FA) - STEP 1: How many accidents has the patient had during the current shift? 0 BOWEL MANAGEMENT: BOWEL MANAGEMENT - STEP 1: Does the patient control bowels completely and intentionally without equipment devices or medications AND is always continent? No. BOWEL MANAGEMENT - STEP 2: Does the patient require the assistance of a helper? No, patient requires medication for control such as stool softeners, suppositories, laxatives, enemas, or OTC medications BOWEL MANAGEMENT - SCORE: 6-NADIA BOWEL MANAGEMENT - FREQUENCY OF ACCIDENTS: BOWEL MANAGEMENT(FA) - STEP 1: How many accidents has the patient had during the current shift? 0 TRANSFERS: BED, CHAIR, WHEELCHAIR: TRANSFERS: BED, CHAIR, WHEELCHAIR - STEP 1: Does the patient require assistance of a person or device, or need extra time with bed, chair, or whe elchair transfers? No. TRANSFERS: BED, CHAIR, WHEELCHAIR - SCORE: 7-IND TRANSFERS: TOILET: TRANSFERS: TOILET - STEP 1: Does the patient require the assistance of a person or device, or need extra time with toilet transfe rs? No. TRANSFERS: TOILET - SCORE: 7-IND TRANSFERS: SHOWER: Activity did not occur on this shift TRANSFERS: SHOWER - SCORE: 0-UNK TRANSFERS: TUB: Activity did not occur on this shift TRANSFERS: TUB - SCORE: 0-UNK LOCOMOTION: WALK: LOCOMOTION: WALK - STEP 1: Does the patient need help from a person or device, or need extra time to walk 150 feet? No. LOCOMOTION: WALK - STEP 2: Does the patient need an assistive device (such as an orthosis, prosthesis, crutches, or walker) to g o 150 feet, OR does s/he take more than reasonable time, OR is there a concern for safety? No. LOCOMOTION: WALK - SCORE: 7-IND LOCOMOTION: WHEELCHAIR: Activity did not occur on this shift LOCOMOTION: WHEELCHAIR - SCORE: 0-UNK COMPREHENSION: COMPREHENSION: TYPE: Both COMPREHENSION - STEP 1: Does the patient require help from a person or device, or need extra time to understand complex and a bstract ideas (such as current events, finances, discharge planning, medical issues, relationships, e tc)? No. COMPREHENSION - STEP 2: Does the patient need extra time, require an assistive device (such as glasses for visual comprehensi on or a hearing aid for auditory comprehension) or does s/he have mild difficulty understanding compl ex and abstract information? No. COMPREHENSION - SCORE: 7-IND EXPRESSION EXPRESSION: TYPE: Both EXPRESSION - STEP 1: Does the patient require help from a person or device, or need extra time expressing complex and abst ract ideas (such as current events, finances, discharge planning, medical issues, relationships, etc) ? No. EXPRESSION - STEP 2: Does the patient need extra time, require an assistive device (such as augmentive communication syste m or a communication board), OR does s/he have mild difficulty expressing complex and abstract ideas (including mild dysarthria or mild word-find problems)? No. EXPRESSION - SCORE: 7-IND SOCIAL INTERACTION: SOCIAL INTERACTION - STEP 1: Does the patient require a helper to interact with others in social and therapeutic situations? No. SOCIAL INTERACTION - STEP 2: Does the patient need extra time in social situations, OR does s/he interact with staff, other patien ts, and family members ONLY in structured environments, OR does s/he require medication for social in teraction? No. SOCIAL INTERACTION - SCORE: 7-IND PROBLEM SOLVING: PROBLEM SOLVING - STEP 1: Does the patient need help from a person or device, or need extra time to solve complex problems such as managing a checking account or confronting interpersonal problems? No. PROBLEM SOLVING - STEP 2: Does the patient require extra time to make decisions or solve problems, OR does s/he have slight dif ficulty reading, initiating, or self-correcting in unfamiliar situations? No. PROBLEM SOLVING - SCORE: 7-IND MEMORY: MEMORY - STEP 1: Does the patient need help from a person or device, or need extra time to remember frequently encount ered people, daily routines, and executing requests? No. MEMORY - STEP 2: Does the patient have slight difficulty recognizing frequently encountered people, daily routines, or executing requests without the need for repetition or using self-initiated or environmental cues to remember? No. MEMORY - SCORE: 7-IND SIGNATURE PANEL: The following modified sections: Eating - Score, Grooming - Score, Bathing - Score, Dressing - Upper Body - Score, Dressing - Lower Body - Score, Toileting - Score, Bladder Management - Score, Bowel Man agement - Score, Transfers: Bed, Chair, Wheelchair - Score, Transfers: Toilet - Score, Transfers: Kimmie wer - Score, Transfers: Tub - Score, Locomotion: Walk - Score, Locomotion: Wheelchair - Score, Compre hension - Score, Expression - Score, Social Interaction - Score, Problem Solving - Score, Memory - Sc ore were [electronically] signed by Courtney Gunn RN on SatAug 12 2018 14:22:31 T-0500 ([facility])
--- NOTE | 2018-08-12 14:23 | FAST ---
ENCOUNTER DATE AND TIME: 08/12/2018 08:00 (CDT) NAME DIEGO SINCLAIR DATE OF : 1960 DATE OF ADMISSION: 08/06/2018 15:32 (CDT) PHONE: AGE: 57 SSN# [id number] GENDER: Male ENCOUNTER PHYSICIAN: Dr. Jin Delvalle M.D. ADMISSION DIAGNOSIS: - Neurologic Conditions 03 - Multiple Sclerosis (03.1) Multiple Sclerosis. EATING: Activity did not occur on this shift EATING - SCORE: 0-UNK GROOMING: Activity did not occur on this shift GROOMING - SCORE: 0-UNK BATHING: Activity did not occur on this shift BATHING - SCORE: 0-UNK DRESSING - UPPER BODY: Activity did not occur on this shift Patient is not dressing in public clothing ARTICLES SCORE Total number of steps: 0 DRESSING - UPPER BODY - SCORE: 0-UNK DRESSING - LOWER BODY: Activity did not occur on this shift Patient is not dressing in public clothing ARTICLES SCORE Total number of steps: 0 DRESSING - LOWER BODY - SCORE: 0-UNK TOILETING: Activity did not occur on this shift TOILETING - SCORE: 0-UNK BLADDER MANAGEMENT: Activity did not occur on this shift BLADDER MANAGEMENT - SCORE: 7-IND BOWEL MANAGEMENT: Activity did not occur on this shift BOWEL MANAGEMENT - SCORE: 7-IND TRANSFERS: BED, CHAIR, WHEELCHAIR: TRANSFERS: BED, CHAIR, WHEELCHAIR - STEP 1: Does the patient require assistance of a person or device, or need extra time with bed, chair, or whe elchair transfers? No. TRANSFERS: BED, CHAIR, WHEELCHAIR - SCORE: 7-IND TRANSFERS: TOILET: Activity did not occur on this shift TRANSFERS: TOILET - SCORE: 0-UNK TRANSFERS: SHOWER: Activity did not occur on this shift TRANSFERS: SHOWER - SCORE: 0-UNK TRANSFERS: TUB: Activity did not occur on this shift TRANSFERS: TUB - SCORE: 0-UNK LOCOMOTION: WALK: LOCOMOTION: WALK - STEP 1: Does the patient need help from a person or device, or need extra time to walk 150 feet? No. LOCOMOTION: WALK - STEP 2: Does the patient need an assistive device (such as an orthosis, prosthesis, crutches, or walker) to g o 150 feet, OR does s/he take more than reasonable time, OR is there a concern for safety? No. LOCOMOTION: WALK - SCORE: 7-IND LOCOMOTION: WHEELCHAIR: Activity did not occur on this shift LOCOMOTION: WHEELCHAIR - SCORE: 0-UNK LOCOMOTION: STAIRS: LOCOMOTION: STAIRS - STEP 1: Does the patient need help to go up and down 12 to 14 stairs? No. LOCOMOTION: STAIRS - STEP 2: Does the patient require an assistive device - such as handrails or cane - to go up and down one flig ht of stairs, OR does s/he take more than reasonable time, OR is there a concern for safety? Yes, the patient requires an assistive device LOCOMOTION: STAIRS - SCORE: 6-NADIA COMPREHENSION: COMPREHENSION - SCORE: 0-UNK EXPRESSION EXPRESSION - SCORE: 0-UNK SOCIAL INTERACTION: SOCIAL INTERACTION - SCORE: 0-UNK PROBLEM SOLVING: PROBLEM SOLVING - SCORE: 0-UNK MEMORY: MEMORY - SCORE: 0-UNK SIGNATURE PANEL: The following modified sections: Transfers: Bed, Chair, Wheelchair - Score, Transfers: Toilet - Score , Locomotion: Walk - Score, Locomotion: Wheelchair - Score, Locomotion: Stairs - Score were [electron sheba] signed by Curtis Brody PT on SatAug 12 2018 14:23:14 T-0500 ([facility] Day[facility] Time)
--- NOTE | 2018-08-12 18:35 | R.PN ---
ENCOUNTER DATE AND TIME: 08/12/2018 18:28 (CDT) NAME DIEGO SINCLAIR DATE OF : 1960 DATE OF ADMISSION: 08/06/2018 15:32 (CDT) Multiple SclerosisCHIEF COMPLAINT: Debility and multiple sclerosis SUBJECTIVE: Pt denied any depression. Pt denied any Shortness of Breath. He is doing very well with physical and occupational therapy. Ambulated with modified indendence on m ultiple surfaces. Up and down 91 steps with modified independence. Labs studies and essentially normal. VITAL SIGNS Temperature: 97.7 F SBP/DBP: 136/60 Pulse: 61 Resp: 14 MEDICATION ALLERGIES: No Known Drug Allergies (NKDA) ENVIRONMENTAL ALLERGIES: None Known - Substance Allergies None Known - Other Allergies None Known NURSING: - Shower allowing shower - Bladder care per protocol - Skin care per protocol ACTIVITIES OOB only with supervision THERAPIES: - Occupational Therapy Evaluate and Treat. - Physical Therapy Evaluate and Treat. PHYSICAL EXAM - Gen Alert and awake Lying in bed No apparent distress Oriented to: person, time, and place - Skin No breakdown No abnormalities - Eyes No abnormalities - ENMT No abnormalities - Neck No abnormalities - CVS RRR - Chest No abnormalities - Abd Soft - GI nondistended Deferred - No abnormalities - Ext No significant edema - MSK 4+/5 weakness in both lower extremities. - Neuro No focal deficits - Psych No abnormalities ASSESSMENT: Pt. is a 57 yo Right-handed white male.On 08/04/2018 he was admitted to [facility] with diagnosis Multiple Sclerosis.His impairment category is Neurologic Conditions 03 - Multiple Sclerosis (03.1).Pre-morbidly, Pt. was independent/mod-I in Self-Care, Sphincter Control, Transfers Control, Locomotion, Communication, and Social Cognition; and he had good Sphincter Control.Currently , he has deficits of Transfers Control, Locomotion, Endurance, Balance, Safety Awareness, and Self-Ca re.Pt. is now referred to [facility] for acute in-patient rehabilitation in or [facility] to maximize patient's functional independence in activities of daily living, strength, ROM, and m obility.- Rehab Goal Patient has realistic goal of being discharged at assistance level 6-Aster to reside at Home with Fam lety/Relatives. MDM/PLAN: - Physical Therapy Gait dysfunction - to improve, our physical therapists will perform initial evaluation of pt's statu s upon admission and devise an individualized program for Gait Training, and Wheel Chair mobility Inability to transfer - to improve, our physical therapists will perform initial evaluation of pt's status upon admission and devise an individualized program for Bed mobility Need for home safety evaluation - to improve, our physical therapists will perform initial evaluatio n of pt's status upon admission and devise an individualized program for Home Evaluation Need in caregiver upon discharge - to improve, our physical therapists will perform initial evaluati on of pt's status upon admission and devise an individualized program for Caregiver Training New precaution - to improve, our physical therapists will perform initial evaluation of pt's status upon admission and devise an individualized program for Patient precaution education Edema - to improve, our physical therapists will perform initial evaluation of pt's status upon admi ssion and devise an individualized program for Elevation Training, and Lymphedema Therapy Poor balance - to improve, our physical therapists will perform initial evaluation of pt's status up on admission and devise an individualized program for Balance Training Poor endurance - to improve, our physical therapists will perform initial evaluation of pt's status upon admission and devise an individualized program for Endurance Training Weakness - to improve, our physical therapists will perform initial evaluation of pt's status upon a dmission and devise an individualized program for Aquatic Therapy, Neuromuscular Reeducation, and Str engthening Achieving independence - to improve, our physical therapists will perform initial evaluation of pt's status upon admission and devise an individualized program for Community Reintegration Activities - Occupational Therapy ADL deficits - to improve, our occupation therapists will perform initial evaluation of pt's status upon admission and devise an individualized program for Bathing, Bed mobility, Community Reintegratio n, Cooking, Dressing, Eating, Fine Motor Skills, Grooming, Homemaking, Kitchen Mobility, Laundry, Pat ient Education, Safety Awareness, Splinting - Positioning, Transfers(Toilet, Tub, Shower), and Wheel Chair Management Need for customer care professional - to improve, our occupation therapists will perform initial evaluation of pt's status upon admission and devise an individualized program for Caregiver Training Weakness - to improve, our occupation therapists will perform initial evaluation of pt's status upon admission and devise an individualized program for Aquatic Therapy, Balance, Endurance, UE ROM, and UE strengthening - Diet Type Continue Heart Healthy - Diet - Liquid Texture Continue Regular - Tube Feed Continue N/A - Bladder care per protocol - Skin care per protocol - Diet - Solid Texture Continue Regular - Shower allowing shower FUNCTIONAL STATUS: UPDATED AT WEEKLY TEAM CONFERENCE - Bladder Same accident frequency: 7-Ind - No accidents in the past 7 days - Bowel Same accident frequency: 7-Ind - No accidents in the past 7 days - Walking Same score based on distance walked: 3(>=150ft) - Wheelchair Same score based on distance traveled: 3(>=150ft) FUNCTIONAL STATUS: - Self-Care A. Eating Aster B. Grooming sup C. Bathing sup D. Dressing - Upper sup E. Dressing - Lower maxA F. Toileting sup - Sphincter Control G: Bladder control Ind H: Bowel control Ind - Transfers Control I. Bed/Chair/Wheelchair Flaca J. Toilet Flaca K. Tub/Shower ADNO - Locomotion L. Walk/Wheelchair (C) Flaca L. Walk/Wheelchair (W) Flaca M. Stairs ADNO - Communication N. Comprehension (B) Ind O. Expression (B) Ind - Social Cognition P. Social Interaction Ind Q. Problem Solving Ind R. Memory Ind - Endurance Fair - Balance Poor - Safety Awareness Fair CURRENT FUNC. DEFICITS: Transfers Control, Locomotion, Endurance, Balance, Safety Awareness, and Self-Care SIGNATURE PANEL: (CDT)
[2018-08-12] MEDS: ATORVASTATIN 40 MG TAB PO SCH (20:35)
[2018-08-12] MEDS: DOCUSATE NA/SENNA CONC 1 TAB PO SCH (20:35)
[2018-08-12] MEDS: MELATONIN 3 MG TABLET PO PRN (22:00)
--- NOTE | 2018-08-13 00:52 | FAST ---
SHIFT START DATE/TIME: 08/12/2018 19:00 (CDT) SHIFT END DATE/TIME: 08/13/2018 07:00 (CDT) NAME DIEGO SINCLAIR DATE OF : 1960 DATE OF ADMISSION: 08/06/2018 15:32 (CDT) PHONE: AGE: 57 SSN# [id number] GENDER: Male ENCOUNTER PHYSICIAN: Dr. Jin Delvalle M.D. ADMISSION DIAGNOSIS: - Neurologic Conditions 03 - Multiple Sclerosis (03.1) Multiple Sclerosis. EATING: Activity did not occur on this shift EATING - SCORE: 0-UNK GROOMING: Oral care Wash, rinse, and dry hands GROOMING - STEP 1: Does the patient require the assistance of a person or device, or need extra time when grooming? No. GROOMING - SCORE: 7-IND BATHING: Activity did not occur on this shift BATHING - SCORE: 0-UNK DRESSING - UPPER BODY: Patient is not dressing in public clothing ARTICLES SCORE Total number of steps: 0 DRESSING - UPPER BODY - SCORE: 0-UNK DRESSING - LOWER BODY: Patient is not dressing in public clothing ARTICLES SCORE Total number of steps: 0 DRESSING - LOWER BODY - SCORE: 0-UNK TOILETING: TOILETING - STEP 1: Does the patient require the assistance of a person or device, or need extra time with toileting? Yes . TOILETING - STEP 2: Does the patient require the assistance of a helper? No. TOILETING - SCORE: 6-NADIA BLADDER MANAGEMENT: BLADDER MANAGEMENT - STEP 1: Does the patient control the bladder completely and intentionally without equipment or devices or med ications, and is always continent? Yes. BLADDER MANAGEMENT - SCORE: 7-IND BOWEL MANAGEMENT: Activity did not occur on this shift BOWEL MANAGEMENT - SCORE: 7-IND TRANSFERS: BED, CHAIR, WHEELCHAIR: TRANSFERS: BED, CHAIR, WHEELCHAIR - STEP 1: Does the patient require assistance of a person or device, or need extra time with bed, chair, or whe elchair transfers? Yes. TRANSFERS: BED, CHAIR, WHEELCHAIR - STEP 2: Does the patient require the assistance of a helper? No. Patient only requires an assistive device fo r bed, chair, wheelchair transfers such as a sliding board, grab bar, or brace, OR s/he takes more th an reasonable time, OR there is a safety concern when s/he performs the transfers TRANSFERS: BED, CHAIR, WHEELCHAIR - SCORE: 6-NADIA TRANSFERS: TOILET: TRANSFERS: TOILET - STEP 1: Does the patient require the assistance of a person or device, or need extra time with toilet transfe rs? Yes. TRANSFERS: TOILET - STEP 2: Does the patient require the assistance of a helper? No. Patient only requires an assistive device chau ch as a grab bar or special seat, OR s/he takes more than reasonable time to perform toilet transfers , OR there is a safety concern when s/he performs toilet transfers. TRANSFERS: TOILET - SCORE: 6-NADIA TRANSFERS: SHOWER: Activity did not occur on this shift TRANSFERS: SHOWER - SCORE: 0-UNK TRANSFERS: TUB: Activity did not occur on this shift TRANSFERS: TUB - SCORE: 0-UNK LOCOMOTION: WALK: Activity did not occur on this shift LOCOMOTION: WALK - SCORE: 0-UNK LOCOMOTION: WHEELCHAIR: Activity did not occur on this shift LOCOMOTION: WHEELCHAIR - SCORE: 0-UNK COMPREHENSION: COMPREHENSION: TYPE: Both COMPREHENSION - STEP 1: Does the patient require help from a person or device, or need extra time to understand complex and a bstract ideas (such as current events, finances, discharge planning, medical issues, relationships, e tc)? No. COMPREHENSION - STEP 2: Does the patient need extra time, require an assistive device (such as glasses for visual comprehensi on or a hearing aid for auditory comprehension) or does s/he have mild difficulty understanding compl ex and abstract information? Yes. COMPREHENSION - SCORE: 6-NADIA EXPRESSION EXPRESSION: TYPE: Both EXPRESSION - STEP 1: Does the patient require help from a person or device, or need extra time expressing complex and abst ract ideas (such as current events, finances, discharge planning, medical issues, relationships, etc) ? No. EXPRESSION - STEP 2: Does the patient need extra time, require an assistive device (such as augmentive communication syste m or a communication board), OR does s/he have mild difficulty expressing complex and abstract ideas (including mild dysarthria or mild word-find problems)? No. EXPRESSION - SCORE: 7-IND SOCIAL INTERACTION: SOCIAL INTERACTION - STEP 1: Does the patient require a helper to interact with others in social and therapeutic situations? No. SOCIAL INTERACTION - STEP 2: Does the patient need extra time in social situations, OR does s/he interact with staff, other patien ts, and family members ONLY in structured environments, OR does s/he require medication for social in teraction? Yes, patient needs extra time SOCIAL INTERACTION - SCORE: 6-NADIA PROBLEM SOLVING: PROBLEM SOLVING - STEP 1: Does the patient need help from a person or device, or need extra time to solve complex problems such as managing a checking account or confronting interpersonal problems? No. PROBLEM SOLVING - STEP 2: Does the patient require extra time to make decisions or solve problems, OR does s/he have slight dif ficulty reading, initiating, or self-correcting in unfamiliar situations? Yes, patient needs extra ti me. PROBLEM SOLVING - SCORE: 6-NADIA MEMORY: MEMORY - STEP 1: Does the patient need help from a person or device, or need extra time to remember frequently encount ered people, daily routines, and executing requests? No. MEMORY - STEP 2: Does the patient have slight difficulty recognizing frequently encountered people, daily routines, or executing requests without the need for repetition or using self-initiated or environmental cues to remember? No. MEMORY - SCORE: 7-IND SIGNATURE PANEL: The following modified sections: Eating - Score, Grooming - Score, Dressing - Upper Body - Score, John ssing - Lower Body - Score, Toileting - Score, Bladder Management - Score, Bowel Management - Score, Transfers: Bed, Chair, Wheelchair - Score, Transfers: Toilet - Score, Transfers: Shower - Score, Mensah sfers: Tub - Score, Locomotion: Walk - Score, Locomotion: Wheelchair - Score, Comprehension - Score, Expression - Score, Social Interaction - Score, Problem Solving - Score, Memory - Score were [electro nically] signed by Gisela Gay CNA on SatAug 13 2018 00:52:14 GMT-0500 (Central Daylight Time)
[2018-08-13] MEDS: METOPROLOL TAR 25 MG TAB PO SCH (05:22)
[2018-08-13 07:40] VITALS: BP 121/73; TEMP 96.8
[2018-08-13] MEDS: POLYETHYL GLY 3350 17 GM/DOSE PO SCH (08:06)
[2018-08-13] MEDS: BUPROPION HCL XL 150 MG TAB PO SCH (08:07)
[2018-08-13] MEDS: TAMSULOSIN 0.4 MG SR CAP PO SCH (08:07)
[2018-08-13] MEDS: FOLIC ACID 1 MG TABLET PO SCH (08:07)
[2018-08-13] MEDS: AMANTADINE 100 MG CAP PO SCH (08:07)
[2018-08-13] MEDS: ASPIRIN EC 81 MG TAB PO SCH (08:08)
[2018-08-13] MEDS: APIXABAN 2.5 MG TABLET PO SCH (08:08)
[2018-08-13] MEDS: GLATIRAMER ACETATE 20 MG SQ SCH (08:11)
--- NOTE | 2018-08-13 10:02 | FAST ---
SHIFT START DATE/TIME: 08/13/2018 07:00 (CDT) SHIFT END DATE/TIME: 08/13/2018 19:00 (CDT) NAME DIEGO SINCLAIR DATE OF : 1960 DATE OF ADMISSION: 08/06/2018 15:32 (CDT) PHONE: AGE: 57 SSN# [id number] GENDER: Male ENCOUNTER PHYSICIAN: Dr. Jin Delvalle M.D. ADMISSION DIAGNOSIS: - Neurologic Conditions 03 - Multiple Sclerosis (03.1) Multiple Sclerosis. EATING: EATING - STEP 1: Does the patient require the assistance of a person or device, or need extra time when eating? Yes. EATING - STEP 2: Does the patient require the assistance of a helper? No, patient only requires an assistive device, O R s/he takes more than reasonable time to eat, OR there is a safety concern, OR s/he requires modifie d food consistency EATING - SCORE: 6-NADIA GROOMING: Comb/brush hair Oral care Wash, rinse, and dry face Wash, rinse, and dry hands GROOMING - STEP 1: Does the patient require the assistance of a person or device, or need extra time when grooming? Yes. GROOMING - STEP 2: Does the patient require the assistance of a helper? No. The patient only requires an assistive devic e, OR takes more than reasonable time to groom, OR there is a concern for safety as the patient groom s GROOMING - SCORE: 6-NADIA BATHING: Activity did not occur on this shift BATHING - SCORE: 0-UNK DRESSING - UPPER BODY: Activity did not occur on this shift ARTICLES SCORE Total number of steps: 0 DRESSING - UPPER BODY - SCORE: 0-UNK DRESSING - LOWER BODY: Activity did not occur on this shift ARTICLES SCORE Total number of steps: 0 DRESSING - LOWER BODY - SCORE: 0-UNK TOILETING: TOILETING - STEP 1: Does the patient require the assistance of a person or device, or need extra time with toileting? Yes . TOILETING - STEP 2: Does the patient require the assistance of a helper? No. TOILETING - SCORE: 6-NADIA BLADDER MANAGEMENT: BLADDER MANAGEMENT - STEP 1: Does the patient control the bladder completely and intentionally without equipment or devices or med ications, and is always continent? No. BLADDER MANAGEMENT - STEP 2: Does the patient require the assistance of a helper? No, patient requires and independently uses an a ssistive device, such as a urinal, bedpan, bedside commode, catheter, absorbent pad, or collecting de vice BLADDER MANAGEMENT - SCORE: 6-NADIA BOWEL MANAGEMENT: Activity did not occur on this shift BOWEL MANAGEMENT - SCORE: 7-IND TRANSFERS: BED, CHAIR, WHEELCHAIR: TRANSFERS: BED, CHAIR, WHEELCHAIR - STEP 1: Does the patient require assistance of a person or device, or need extra time with bed, chair, or whe elchair transfers? Yes. TRANSFERS: BED, CHAIR, WHEELCHAIR - STEP 2: Does the patient require the assistance of a helper? No. Patient only requires an assistive device fo r bed, chair, wheelchair transfers such as a sliding board, grab bar, or brace, OR s/he takes more th an reasonable time, OR there is a safety concern when s/he performs the transfers TRANSFERS: BED, CHAIR, WHEELCHAIR - SCORE: 6-NADIA TRANSFERS: TOILET: TRANSFERS: TOILET - STEP 1: Does the patient require the assistance of a person or device, or need extra time with toilet transfe rs? Yes. TRANSFERS: TOILET - STEP 2: Does the patient require the assistance of a helper? No. Patient only requires an assistive device chau ch as a grab bar or special seat, OR s/he takes more than reasonable time to perform toilet transfers , OR there is a safety concern when s/he performs toilet transfers. TRANSFERS: TOILET - SCORE: 6-NADIA TRANSFERS: SHOWER: Activity did not occur on this shift TRANSFERS: SHOWER - SCORE: 0-UNK TRANSFERS: TUB: Activity did not occur on this shift TRANSFERS: TUB - SCORE: 0-UNK LOCOMOTION: WALK: Activity did not occur on this shift LOCOMOTION: WALK - SCORE: 0-UNK LOCOMOTION: WHEELCHAIR: Activity did not occur on this shift LOCOMOTION: WHEELCHAIR - SCORE: 0-UNK COMPREHENSION: COMPREHENSION: TYPE: Both COMPREHENSION - STEP 1: Does the patient require help from a person or device, or need extra time to understand complex and a bstract ideas (such as current events, finances, discharge planning, medical issues, relationships, e tc)? No. COMPREHENSION - STEP 2: Does the patient need extra time, require an assistive device (such as glasses for visual comprehensi on or a hearing aid for auditory comprehension) or does s/he have mild difficulty understanding compl ex and abstract information? No. COMPREHENSION - SCORE: 7-IND EXPRESSION EXPRESSION: TYPE: Both EXPRESSION - STEP 1: Does the patient require help from a person or device, or need extra time expressing complex and abst ract ideas (such as current events, finances, discharge planning, medical issues, relationships, etc) ? No. EXPRESSION - STEP 2: Does the patient need extra time, require an assistive device (such as augmentive communication syste m or a communication board), OR does s/he have mild difficulty expressing complex and abstract ideas (including mild dysarthria or mild word-find problems)? Yes. EXPRESSION - SCORE: 6-NADIA SOCIAL INTERACTION: SOCIAL INTERACTION - STEP 1: Does the patient require a helper to interact with others in social and therapeutic situations? No. SOCIAL INTERACTION - STEP 2: Does the patient need extra time in social situations, OR does s/he interact with staff, other patien ts, and family members ONLY in structured environments, OR does s/he require medication for social in teraction? Yes, patient needs extra time SOCIAL INTERACTION - SCORE: 6-NADIA PROBLEM SOLVING: PROBLEM SOLVING - STEP 1: Does the patient need help from a person or device, or need extra time to solve complex problems such as managing a checking account or confronting interpersonal problems? No. PROBLEM SOLVING - STEP 2: Does the patient require extra time to make decisions or solve problems, OR does s/he have slight dif ficulty reading, initiating, or self-correcting in unfamiliar situations? Yes, patient needs extra ti me. PROBLEM SOLVING - SCORE: 6-NADIA MEMORY: MEMORY - STEP 1: Does the patient need help from a person or device, or need extra time to remember frequently encount ered people, daily routines, and executing requests? No. MEMORY - STEP 2: Does the patient have slight difficulty recognizing frequently encountered people, daily routines, or executing requests without the need for repetition or using self-initiated or environmental cues to remember? Yes. MEMORY - SCORE: 6-NADIA SIGNATURE PANEL: The following modified sections: Eating - Score, Grooming - Score, Bathing - Score, Dressing - Upper Body - Score, Dressing - Lower Body - Score, Toileting - Score, Bladder Management - Score, Bowel Man agement - Score, Transfers: Bed, Chair, Wheelchair - Score, Transfers: Toilet - Score, Transfers: Kimmie wer - Score, Transfers: Tub - Score, Locomotion: Walk - Score, Locomotion: Wheelchair - Score, Compre hension - Score, Expression - Score, Social Interaction - Score, Problem Solving - Score, Memory - Sc ore were [electronically] signed by Heber Logan on SatAug 13 2018 10:00:28 GMT-0500 (Central Daylight Time)
--- NOTE | 2018-08-13 12:40 | FAST ---
ENCOUNTER DATE AND TIME: 08/13/2018 08:00 (CDT) NAME DIEGO SINCLAIR DATE OF : 1960 DATE OF ADMISSION: 08/06/2018 15:32 (CDT) PHONE: AGE: 57 SSN# [id number] GENDER: Male ENCOUNTER PHYSICIAN: Dr. Jin Delvalle M.D. ADMISSION DIAGNOSIS: - Neurologic Conditions 03 - Multiple Sclerosis (03.1) Multiple Sclerosis. EATING: Activity did not occur on this shift EATING - SCORE: 0-UNK GROOMING: Patient shaved Wash, rinse, and dry face Wash, rinse, and dry hands GROOMING - STEP 1: Does the patient require the assistance of a person or device, or need extra time when grooming? No. GROOMING - SCORE: 7-IND BATHING: Abdomen Buttocks Chest Left arm Left lower leg and foot Left upper leg Perineal area Right arm Right lower leg and foot Right upper leg BATHING - STEP 1: Does the patient require the assistance of a person or device, or need extra time when bathing? Yes. BATHING - STEP 2: Does the patient require the assistance of a helper? No. The patient only requires an assistive devic e such as a bath renata, OR the patient takes more than reasonable time to bathe, OR there is a concern for safety such as regulating water temperature as the patient bathes. BATHING - SCORE: 6-NADIA DRESSING - UPPER BODY: T-shirt/pullover shirt (four steps) ARTICLES SCORE Total number of steps: 4 DRESSING - UPPER BODY - STEP 1: Does the patient require help from a person or device, or need extra time when dressing above the [address]? No. DRESSING - UPPER BODY - SCORE: 7-IND DRESSING - LOWER BODY: Sock - Left foot (one step) Sock - Right foot (one step) Tied or buckled shoe - Left foot (two steps) Tied or buckled shoe - Right foot (two steps) Underwear (three steps) Zippered pants (four steps) ARTICLES SCORE Total number of steps: 13 DRESSING - LOWER BODY - STEP 1: Does the patient require help from a person or device, or need extra time when dressing below the [address]? Yes. DRESSING - LOWER BODY - STEP 2: Does the patient require the assistance of a helper? No. Patient requires an assistive device such as a contact center rep. OR s/he takes more than reasonable time as s/he dresses the lower body, OR there is a con cern for safety when s/he dresses the lower body DRESSING - LOWER BODY - SCORE: 6-NADIA TOILETING: Activity did not occur on this shift TOILETING - SCORE: 0-UNK BLADDER MANAGEMENT: Activity did not occur on this shift BLADDER MANAGEMENT - SCORE: 7-IND BOWEL MANAGEMENT: Activity did not occur on this shift BOWEL MANAGEMENT - SCORE: 7-IND TRANSFERS: BED, CHAIR, WHEELCHAIR: Activity did not occur on this shift TRANSFERS: BED, CHAIR, WHEELCHAIR - SCORE: 0-UNK TRANSFERS: TOILET: Activity did not occur on this shift TRANSFERS: TOILET - SCORE: 0-UNK TRANSFERS: SHOWER: TRANSFERS: SHOWER - STEP 1: Does the patient require the assistance of a person or device, or need extra time with shower transfe rs? Yes. TRANSFERS: SHOWER - STEP 2: Does the patient require the assistance of a helper? No. The patient only uses an assistive device, t akes more than reasonable time, OR there is a concern for safety when s/he performs transfers. TRANSFERS: SHOWER - SCORE: 6-NADIA TRANSFERS: TUB: Activity did not occur on this shift TRANSFERS: TUB - SCORE: 0-UNK LOCOMOTION: WALK: Activity did not occur on this shift LOCOMOTION: WALK - SCORE: 0-UNK LOCOMOTION: WHEELCHAIR: Activity did not occur on this shift LOCOMOTION: WHEELCHAIR - SCORE: 0-UNK LOCOMOTION: STAIRS: Activity did not occur on this shift LOCOMOTION: STAIRS - SCORE: 0-UNK COMPREHENSION: COMPREHENSION: TYPE: Visual COMPREHENSION - STEP 1: Does the patient require help from a person or device, or need extra time to understand complex and a bstract ideas (such as current events, finances, discharge planning, medical issues, relationships, e tc)? No. COMPREHENSION - STEP 2: Does the patient need extra time, require an assistive device (such as glasses for visual comprehensi on or a hearing aid for auditory comprehension) or does s/he have mild difficulty understanding compl ex and abstract information? Yes. COMPREHENSION - SCORE: 6-NADIA EXPRESSION EXPRESSION: TYPE: Non-Vocal EXPRESSION - STEP 1: Does the patient require help from a person or device, or need extra time expressing complex and abst ract ideas (such as current events, finances, discharge planning, medical issues, relationships, etc) ? No. EXPRESSION - STEP 2: Does the patient need extra time, require an assistive device (such as augmentive communication syste m or a communication board), OR does s/he have mild difficulty expressing complex and abstract ideas (including mild dysarthria or mild word-find problems)? No. EXPRESSION - SCORE: 7-IND SOCIAL INTERACTION: SOCIAL INTERACTION - STEP 1: Does the patient require a helper to interact with others in social and therapeutic situations? No. SOCIAL INTERACTION - STEP 2: Does the patient need extra time in social situations, OR does s/he interact with staff, other patien ts, and family members ONLY in structured environments, OR does s/he require medication for social in teraction? No. SOCIAL INTERACTION - SCORE: 7-IND PROBLEM SOLVING: PROBLEM SOLVING - STEP 1: Does the patient need help from a person or device, or need extra time to solve complex problems such as managing a checking account or confronting interpersonal problems? No. PROBLEM SOLVING - STEP 2: Does the patient require extra time to make decisions or solve problems, OR does s/he have slight dif ficulty reading, initiating, or self-correcting in unfamiliar situations? No. PROBLEM SOLVING - SCORE: 7-IND MEMORY: MEMORY - STEP 1: Does the patient need help from a person or device, or need extra time to remember frequently encount ered people, daily routines, and executing requests? No. MEMORY - STEP 2: Does the patient have slight difficulty recognizing frequently encountered people, daily routines, or executing requests without the need for repetition or using self-initiated or environmental cues to remember? No. MEMORY - SCORE: 7-IND SIGNATURE PANEL: The following modified sections: Eating - Score, Grooming - Score, Bathing - Score, Dressing - Upper Body - Score, Dressing - Lower Body - Score, Toileting - Score, Transfers: Bed, Chair, Wheelchair - S core, Transfers: Toilet - Score, Transfers: Shower - Score, Transfers: Tub - Score, Comprehension - S core, Expression - Score, Social Interaction - Score, Problem Solving - Score, Memory - Score were [e lectronically] signed by TANISHA Dutta on SatAug 13 2018 12:39:29 T-0500 ([facility] Time)
--- NOTE | 2018-08-13 15:15 | FAST ---
ENCOUNTER DATE AND TIME: 08/13/2018 08:00 (CDT) NAME DIEGO SINCLAIR DATE OF : 1960 DATE OF ADMISSION: 08/06/2018 15:32 (CDT) PHONE: AGE: 57 SSN# [id number] GENDER: Male ENCOUNTER PHYSICIAN: Dr. Jin Delvalle M.D. ADMISSION DIAGNOSIS: - Neurologic Conditions 03 - Multiple Sclerosis (03.1) Multiple Sclerosis. EATING: Activity did not occur on this shift EATING - SCORE: 0-UNK GROOMING: Activity did not occur on this shift GROOMING - SCORE: 0-UNK BATHING: Activity did not occur on this shift BATHING - SCORE: 0-UNK DRESSING - UPPER BODY: Activity did not occur on this shift Patient is not dressing in public clothing ARTICLES SCORE Total number of steps: 0 DRESSING - UPPER BODY - SCORE: 0-UNK DRESSING - LOWER BODY: Activity did not occur on this shift Patient is not dressing in public clothing ARTICLES SCORE Total number of steps: 0 DRESSING - LOWER BODY - SCORE: 0-UNK TOILETING: Activity did not occur on this shift TOILETING - SCORE: 0-UNK BLADDER MANAGEMENT: Activity did not occur on this shift BLADDER MANAGEMENT - SCORE: 7-IND BOWEL MANAGEMENT: Activity did not occur on this shift BOWEL MANAGEMENT - SCORE: 7-IND TRANSFERS: BED, CHAIR, WHEELCHAIR: TRANSFERS: BED, CHAIR, WHEELCHAIR - STEP 1: Does the patient require assistance of a person or device, or need extra time with bed, chair, or whe elchair transfers? No. TRANSFERS: BED, CHAIR, WHEELCHAIR - SCORE: 7-IND TRANSFERS: TOILET: Activity did not occur on this shift TRANSFERS: TOILET - SCORE: 0-UNK TRANSFERS: SHOWER: Activity did not occur on this shift TRANSFERS: SHOWER - SCORE: 0-UNK TRANSFERS: TUB: Activity did not occur on this shift TRANSFERS: TUB - SCORE: 0-UNK LOCOMOTION: WALK: LOCOMOTION: WALK - STEP 1: Does the patient need help from a person or device, or need extra time to walk 150 feet? No. LOCOMOTION: WALK - STEP 2: Does the patient need an assistive device (such as an orthosis, prosthesis, crutches, or walker) to g o 150 feet, OR does s/he take more than reasonable time, OR is there a concern for safety? No. LOCOMOTION: WALK - SCORE: 7-IND LOCOMOTION: WHEELCHAIR: Activity did not occur on this shift LOCOMOTION: WHEELCHAIR - SCORE: 0-UNK LOCOMOTION: STAIRS: LOCOMOTION: STAIRS - STEP 1: Does the patient need help to go up and down 12 to 14 stairs? No. LOCOMOTION: STAIRS - STEP 2: Does the patient require an assistive device - such as handrails or cane - to go up and down one flig ht of stairs, OR does s/he take more than reasonable time, OR is there a concern for safety? Yes, the patient requires an assistive device LOCOMOTION: STAIRS - SCORE: 6-NADIA COMPREHENSION: COMPREHENSION - SCORE: 0-UNK EXPRESSION EXPRESSION - SCORE: 0-UNK SOCIAL INTERACTION: SOCIAL INTERACTION - SCORE: 0-UNK PROBLEM SOLVING: PROBLEM SOLVING - SCORE: 0-UNK MEMORY: MEMORY - SCORE: 0-UNK SIGNATURE PANEL: The following modified sections: Transfers: Bed, Chair, Wheelchair - Score, Transfers: Toilet - Score , Locomotion: Walk - Score, Locomotion: Wheelchair - Score, Locomotion: Stairs - Score were [electron sheba] signed by Curtis Brody PT on SatAug 13 2018 15:14:48 T-0500 (Central Daylight Time)
--- NOTE | 2018-08-13 19:32 | R.PN ---
ENCOUNTER DATE AND TIME: 08/13/2018 19:29 (CDT) NAME DIEGO SINCLAIR DATE OF : 1960 DATE OF ADMISSION: 08/06/2018 15:32 (CDT) Multiple SclerosisCHIEF COMPLAINT: Debility and multiple sclerosis SUBJECTIVE: Pt denied any depression. Pt denied any Shortness of Breath. He is doing very well with physical and occupational therapy. Ambulated with modified indendence on m ultiple surfaces. Up and down 91 steps with modified independence. Labs studies and essentially normal. He will be discharged home today. VITAL SIGNS Temperature: 97.7 F SBP/DBP: 121/73 Pulse: 53 Resp: 14 MEDICATION ALLERGIES: No Known Drug Allergies (NKDA) ENVIRONMENTAL ALLERGIES: None Known - Substance Allergies None Known - Other Allergies None Known NURSING: - Shower allowing shower - Bladder care per protocol - Skin care per protocol ACTIVITIES OOB only with supervision THERAPIES: - Occupational Therapy Evaluate and Treat. - Physical Therapy Evaluate and Treat. PHYSICAL EXAM - Gen Alert and awake Lying in bed No apparent distress Oriented to: person, time, and place - Skin No breakdown No abnormalities - Eyes No abnormalities - ENMT No abnormalities - Neck No abnormalities - CVS RRR - Chest No abnormalities - Abd Soft - GI nondistended Deferred - No abnormalities - Ext No significant edema - MSK 4+/5 weakness in both lower extremities. - Neuro No focal deficits - Psych No abnormalities ASSESSMENT: Pt. is a 57 yo Right-handed white male.On 08/04/2018 he was admitted to [facility] [place], [place] with diagnosis Multiple Sclerosis.His impairment category is Neurologic Conditions 03 - Multiple Sclerosis (03.1).Pre-morbidly, Pt. was independent/mod-I in Self-Care, Sphincter Control, Transfers Control, Locomotion, Communication, and Social Cognition; and he had good Sphincter Control.Currently , he has deficits of Transfers Control, Locomotion, Endurance, Balance, Safety Awareness, and Self-Ca re.Pt. is now referred to [facility] for acute in-patient rehabilitation in or [facility] to maximize patient's functional independence in activities of daily living, strength, ROM, and m obility.- Rehab Goal Patient has realistic goal of being discharged at assistance level 6-Aster to reside at Home with Fam lety/Relatives. MDM/PLAN: - Physical Therapy Gait dysfunction - to improve, our physical therapists will perform initial evaluation of pt's statu s upon admission and devise an individualized program for Gait Training, and Wheel Chair mobility Inability to transfer - to improve, our physical therapists will perform initial evaluation of pt's status upon admission and devise an individualized program for Bed mobility Need for home safety evaluation - to improve, our physical therapists will perform initial evaluatio n of pt's status upon admission and devise an individualized program for Home Evaluation Need in caregiver upon discharge - to improve, our physical therapists will perform initial evaluati on of pt's status upon admission and devise an individualized program for Caregiver Training New precaution - to improve, our physical therapists will perform initial evaluation of pt's status upon admission and devise an individualized program for Patient precaution education Edema - to improve, our physical therapists will perform initial evaluation of pt's status upon admi ssion and devise an individualized program for Elevation Training, and Lymphedema Therapy Poor balance - to improve, our physical therapists will perform initial evaluation of pt's status up on admission and devise an individualized program for Balance Training Poor endurance - to improve, our physical therapists will perform initial evaluation of pt's status upon admission and devise an individualized program for Endurance Training Weakness - to improve, our physical therapists will perform initial evaluation of pt's status upon a dmission and devise an individualized program for Aquatic Therapy, Neuromuscular Reeducation, and Str engthening Achieving independence - to improve, our physical therapists will perform initial evaluation of pt's status upon admission and devise an individualized program for Community Reintegration Activities - Occupational Therapy ADL deficits - to improve, our occupation therapists will perform initial evaluation of pt's status upon admission and devise an individualized program for Bathing, Bed mobility, Community Reintegratio n, Cooking, Dressing, Eating, Fine Motor Skills, Grooming, Homemaking, Kitchen Mobility, Laundry, Pat ient Education, Safety Awareness, Splinting - Positioning, Transfers(Toilet, Tub, Shower), and Wheel Chair Management Need for care management associate - to improve, our occupation therapists will perform initial evaluation of pt's status upon admission and devise an individualized program for Caregiver Training Weakness - to improve, our occupation therapists will perform initial evaluation of pt's status upon admission and devise an individualized program for Aquatic Therapy, Balance, Endurance, UE ROM, and UE strengthening - Diet Type Continue Heart Healthy - Diet - Liquid Texture Continue Regular - Tube Feed Continue N/A - Bladder care per protocol - Skin care per protocol - Diet - Solid Texture Continue Regular - Shower allowing shower FUNCTIONAL STATUS: UPDATED AT WEEKLY TEAM CONFERENCE - Bladder Same accident frequency: 7-Ind - No accidents in the past 7 days - Bowel Same accident frequency: 7-Ind - No accidents in the past 7 days - Walking Same score based on distance walked: 3(>=150ft) - Wheelchair Same score based on distance traveled: 3(>=150ft) FUNCTIONAL STATUS: - Self-Care A. Eating Aster B. Grooming sup C. Bathing sup D. Dressing - Upper sup E. Dressing - Lower maxA F. Toileting sup - Sphincter Control G: Bladder control Ind H: Bowel control Ind - Transfers Control I. Bed/Chair/Wheelchair Flaca J. Toilet Flaca K. Tub/Shower ADNO - Locomotion L. Walk/Wheelchair (C) Flaca L. Walk/Wheelchair (W) Flaca M. Stairs ADNO - Communication N. Comprehension (B) Ind O. Expression (B) Ind - Social Cognition P. Social Interaction Ind Q. Problem Solving Ind R. Memory Ind - Endurance Fair - Balance Poor - Safety Awareness Fair CURRENT FUNC. DEFICITS: Transfers Control, Locomotion, Endurance, Balance, Safety Awareness, and Self-Care SIGNATURE PANEL: (CDT)
== END 2018-08-13 15:25 | disposition home or self-care (01) | DRG 60 ==
LOC: 5TH 15:32
PROVIDERS: ADMIT Psychiatry & Neurology Neurology with Special Qualifications in Child Neurology; ATTEND Psychiatry & Neurology Neurology with Special Qualifications in Child Neurology
DX: G35 Multiple sclerosis (principal); F32.9 Major depressive disorder, single episode, unspecified; F41.9 Anxiety disorder, unspecified; N52.9 Male erectile dysfunction, unspecified
CPT/HCPCS: 36415; 80048; 81001; 82040; 83735; 84134; 85025; 87086; 87088; 97112; 97116; 97150; 97162; 97167; 97530; 97537